=== PATIENT | male | born 1935 | race Caucasian/White ===

== ENCOUNTER 2017-04-07 23:59 | Emergency (ER) | payer MEDICARE, OTHER ==
[~2017-04-07] VITALS: Ht 170.2 cm; Wt 74.8 kg
[~2017-04-07 23:59] MED LIST: ACET650S13 PO; AMLO1CAP PO; AMLO1CAP31 PO; AMLO1CAP5 PO; ASP325TEC PO; ASP81TEC PO; ATOR40TA PO; CLPD75T PO; CODE-54 PO; CYAN100071 PO; CYAN500T44 PO; CYCL10TA9 PO; ENXP80I.8 SC; ENXP80I.8 SQ; MTP100TCR PO; NTR.4SL SL; POTA10CA43 PO; POTA99TA7 PO; SMV20T PO; TELM40T PO; TELM80TA3 PO; TICA90TA PO
--- OUTSIDE RECORDS SUMMARY | 2017-04-08 00:06 | XMS REPORT | Continuity of Care Document ---
Author Author [facility] Organization [facility] Address Unknown Phone Unavailable Allergies Active Description Code Type Severity Reaction Onset Reported/Identified Relationship to Patient Clinical Status Yes tramadol [id number] Drug Allergy Moderate HALLUCINATIONS 06/24/2012 Medications There is no data. Problems Date Dx Coded Attending Type Code Diagnosis Diagnosed By 04/04/2010 Ot 272.4 04/04/2010 Ot 401.9 04/04/2010 Ot 412 04/04/2010 Ot 414.01 04/04/2010 Ot 414.02 04/04/2010 Ot 414.2 04/04/2010 Ot 715.90 04/04/2010 Ot V13.01 04/04/2010 Ot V17.49 04/04/2010 Ot V45.81 04/04/2010 Ot V58.66 04/04/2010 Ot V58.69 11/09/2011 Ot 272.4 HYPERLIPIDEMIA NEC/NOS 11/09/2011 Ot 386.11 BENIGN PARXYSMAL VERTIGO 11/09/2011 Ot 401.9 HYPERTENSION NOS 11/09/2011 Ot 412 OLD MYOCARDIAL INFARCT 11/09/2011 Ot 414.00 CORON ATHEROSCLER NOS TYPE VESSEL, NATIV 11/09/2011 Ot 433.10 CAROTID ARTERY OCCLUSION W O CEREBRAL IN 11/09/2011 Ot 433.30 MULT BILTRAL ARTERY OCCLUSION WO CEREBRA 11/09/2011 Ot 435.9 TRANS CEREB ISCHEMIA NOS 11/09/2011 Ot 530.81 ESOPHAGEAL REFLUX 11/09/2011 Ot 722.52 LUMB/ LUMBOSAC DISC DEGEN 11/09/2011 Ot V45.81 AORTOCORONARY BYPASS 11/10/2011 Ot 724.00 SPINAL STENOSIS NOS 11/10/2011 Ot 724.2 LUMBAGO 11/10/2011 Ot V57.1 PHYSICAL THERAPY NEC 06/27/2012 MITESH RAGSDALE MD Ot 272.4 HYPERLIPIDEMIA NEC/NOS 06/27/2012 MITESH RAGSDALE MD Ot 292.81 DRUG-INDUCED DELIRIUM 06/27/2012 MITESH RAGSDALE MD Ot 401.9 HYPERTENSION NOS 06/27/2012 MITESH RAGSDALE MD Ot 414.01 CORONARY ATHEROSCLEROSIS OF [place] CORON 06/27/2012 MITESH RAGSDALE MD Ot 715.90 OSTEOARTHROS NOS-UNSPEC 06/27/2012 MITESH RAGSDALE MD Ot 724.02 SPINAL STENOSIS, LUMBAR REG, W/OUT NEURO 06/27/2012 MITESH RAGSDALE MD Ot 756.12 SPONDYLOLISTHESIS 06/27/2012 MITESH RAGSDALE MD Ot E935.2 ADV EFF OPIATES 06/27/2012 MITESH RAGSDALE MD Ot E938.4 ADV EFF GEN ANES NEC/NOS 06/27/2012 MITESH RAGSDALE MD Ot V03.82 PROPHYLACTIC VACC AGAINST STREPTOCOCCUS 06/27/2012 MITESH RAGSDALE MD Ot V12.54 PERSONAL HX OF TIA, CEREBRAL INFARCTION 06/27/2012 MITESH RAGSDALE MD Ot V15.82 HISTORY OF TOBACCO USE 06/27/2012 MITESH RAGSDALE MD Ot V45.81 AORTOCORONARY BYPASS 11/01/2012 MITESH RAGSDALE MD Ot 998.83 NON-HEALING SURG WOUND 10/28/2014 Ot 396.3 10/28/2014 Ot 414.01 10/28/2014 Ot 429.3 10/28/2014 Ot 433.10 10/28/2014 Ot 272.4 10/28/2014 Ot 414.00 10/28/2014 Ot 780.4 10/28/2014 Ot V45.81 10/28/2014 Ot V58.69 10/28/2014 Ot 433.10 10/28/2014 Ot 272.4 10/28/2014 Ot 414.01 10/28/2014 Ot V58.69 10/28/2014 Ot 429.3 10/28/2014 Ot 786.2 10/28/2014 Ot 414.00 10/28/2014 Ot V45.81 10/28/2014 Ot 722.10 10/28/2014 MITESH RAGSDALE MD Ot 724.02 10/28/2014 MITESH RAGSDALE MD Ot V72.63 10/28/2014 MITESH RAGSDALE MD Ot V74.8 10/28/2014 Ot 724.02 10/28/2014 CARLOS HERRERA APRN Ot 789.00 10/28/2014 MONAE HUGHES DO Ot 331.9 10/28/2014 MONAE HUGHES DO Ot 433.30 10/28/2014 ANGIE HUGHES DOLINE S Ot 780.93 10/28/2014 SAUL SUAREZ, MONAE S Ot V81.5 01/28/2015 Ot 396.3 01/28/2015 Ot 414.01 01/28/2015 Ot 429.3 01/28/2015 Ot 433.10 01/28/2015 Ot 272.4 01/28/2015 Ot 414.00 01/28/2015 Ot 780.4 01/28/2015 Ot V45.81 01/28/2015 Ot V58.69 01/28/2015 Ot 433.10 01/28/2015 Ot 272.4 01/28/2015 Ot 414.01 01/28/2015 Ot V58.69 01/28/2015 Ot 429.3 01/28/2015 Ot 786.2 01/28/2015 Ot 414.00 01/28/2015 Ot V45.81 01/28/2015 Ot 722.10 01/28/2015 MELYSSA MORTON, MITESH Dahl Ot 724.02 01/28/2015 MELYSSA MORTON, MITESH Dahl Ot V72.63 01/28/2015 MITESH RAGSDALE MD Ot V74.8 01/28/2015 Ot 724.02 01/28/2015 CARLOS HERRERA APRN Ot 789.00 01/28/2015 SAUL SUAREZ MONAE S Ot 331.9 01/28/2015 SAUL SUAREZ MONAE S Ot 433.30 01/28/2015 SAUL SUAREZ, MONAE S Ot 780.93 01/28/2015 SAUL SUAREZ, MONAE S Ot V81.5 10/05/2015 Ot 433.10 CAROTID ARTERY OCCLUSION W O CEREBRAL IN 10/05/2015 Ot 272.4 HYPERLIPIDEMIA NEC/NOS 10/05/2015 Ot 414.01 CORONARY ATHEROSCLEROSIS OF [place] CORON 10/05/2015 Ot V58.69 OTH MED,LT, CURRENT USE 10/05/2015 Ot 429.3 CARDIOMEGALY 10/05/2015 Ot 786.2 COUGH 10/05/2015 Ot 414.00 CORON ATHEROSCLER NOS TYPE VESSEL, NATIV 10/05/2015 Ot V45.81 AORTOCORONARY BYPASS 10/05/2015 Ot 722.10 LUMBAR DISC DISPLACEMENT 10/05/2015 MELYSSA MORTON, MITESH Dahl Ot 724.02 SPINAL STENOSIS, LUMBAR REG, W/OUT NEURO 10/05/2015 MELYSSA MORTON, MITESH Dahl Ot V72.63 PRE-PROCEDURAL LABORATORY EXAMINATION 10/05/2015 MITESH RAGSDALE MD Ot V74.8 SCREEN-BACTERIAL DIS NEC 10/05/2015 Ot 724.02 SPINAL STENOSIS, LUMBAR REG, W/OUT NEURO 10/05/2015 JAVIERCARLOS BASEBALL GLOVE STUFFER Ot 789.00 ABDOMINAL PAIN, UNSPECIFIED SITE 10/05/2015 ORENDER DO, MONAE S Ot 331.9 CEREB DEGENERATION NOS 10/05/2015 ORENDER DO, MONAE S Ot 433.30 MULT BILTRAL ARTERY OCCLUSION WO CEREBRA 10/05/2015 ORENDER DO, MONAE S Ot 780.93 MEMORY LOSS 10/05/2015 ORENDER DO, MONAE S Ot V81.5 SCREEN FOR NEPHROPATHY 10/07/2015 ENRIQUE BURRELL [employer] GLOVE STUFFER Ot M54.2 CERVICALGIA 10/07/2015 ENRIQUE BURRELL [employer] GLOVE STUFFER Ot M54.6 PAIN IN THORACIC SPINE 10/07/2015 ENRIQUE BURRELL B[employer]BALL GLOVE STUFFER Ot R42 DIZZINESS AND GIDDINESS 10/07/2015 ENRIQUE BURRELL B[employer]BALL GLOVE STUFFER Ot R51 HEADACHE 10/07/2015 ENRIQUE BURRELL BASEBALL GLOVE STUFFER Ot S19.9XXA UNSPECIFIED INJURY OF NECK, INITIAL ENCO 10/07/2015 ENRIQUE BURRELL BASEBALL GLOVE STUFFER Ot W19.XXXA UNSPECIFIED FALL, INITIAL ENCOUNTER 10/07/2015 ENRIQUE BURRELL BASEBALL GLOVE STUFFER Ot Y92.[address] [facility] [address] IN [facility] NON-INSTITUT (PRIVATE 10/07/2015 ENRIQUE BURRELL B[employer]BALL GLOVE STUFFER Ot Y99.8 OTHER EXTERNAL CAUSE STATUS 10/28/2015 Ot 433.10 CAROTID ARTERY OCCLUSION W O CEREBRAL IN 10/28/2015 Ot 272.4 HYPERLIPIDEMIA NEC/NOS 10/28/2015 Ot 414.01 CORONARY ATHEROSCLEROSIS OF [place] CORON 10/28/2015 Ot V58.69 OTH MED,LT, CURRENT USE 10/28/2015 Ot 429.3 CARDIOMEGALY 10/28/2015 Ot 786.2 COUGH 10/28/2015 Ot 414.00 CORON ATHEROSCLER NOS TYPE VESSEL, NATIV 10/28/2015 Ot V45.81 AORTOCORONARY BYPASS 10/28/2015 Ot 722.10 LUMBAR DISC DISPLACEMENT 10/28/2015 MITESH RAGSDALE MD Ot 724.02 SPINAL STENOSIS, LUMBAR REG, W/OUT NEURO 10/28/2015 MELYSSA MORTON, MITESH Dahl Ot V72.63 PRE-PROCEDURAL LABORATORY EXAMINATION 10/28/2015 MITESH RAGSDALE MD Ot V74.8 SCREEN-BACTERIAL DIS NEC 10/28/2015 Ot 724.02 SPINAL STENOSIS, LUMBAR REG, W/OUT NEURO 10/28/2015 CARLOS HERRERA BASEBALL GLOVE STUFFER Ot 789.00 ABDOMINAL PAIN, UNSPECIFIED SITE 10/28/2015 ORENDER DO, MONAE S Ot 331.9 CEREB DEGENERATION NOS 10/28/2015 ORENDER DO, MONAE S Ot 433.30 MULT BILTRAL ARTERY OCCLUSION WO CEREBRA 10/28/2015 RITANDER , MONAE S Ot 780.93 MEMORY LOSS 10/28/2015 RITANDLAWRENCE DIAZ DOQUELINE S Ot V81.5 SCREEN FOR NEPHROPATHY 10/29/2015 ENRIQUE BURRELL B[employer]BALL GLOVE STUFFER Ot M54.2 CERVICALGIA 10/29/2015 ENRIQUE BURRELL [employer] GLOVE STUFFER Ot M54.6 PAIN IN THORACIC SPINE 10/29/2015 ENRIQUE BURRELL [employer]ALL GLOVE STUFFER Ot R42 DIZZINESS AND GIDDINESS 10/29/2015 ENRIQUE BURRELL [employer] GLOVE STUFFER Ot R51 HEADACHE 10/29/2015 ENRIQUE BURRELL BASEBALL GLOVE STUFFER Ot S19.9XXA UNSPECIFIED INJURY OF NECK, INITIAL ENCO 10/29/2015 ENRIQUE BURRELL B[employer]BALL GLOVE STUFFER Ot W19.XXXA UNSPECIFIED FALL, INITIAL ENCOUNTER 10/29/2015 ENRIQUE BURRELL BASEBALL GLOVE STUFFER Ot Y92.[address] [facility] [address] IN [facility] NON-INSTITUT (PRIVATE 10/29/2015 ENRIQUE BURRELL B[employer]BALL GLOVE STUFFER Ot Y99.8 OTHER EXTERNAL CAUSE STATUS 11/08/2015 ENRIQUE BURRELL B[employer]BALL GLOVE STUFFER Ot M54.2 CERVICALGIA 11/08/2015 ENRIQUE BURRELL B[employer]BALL GLOVE STUFFER Ot M54.6 PAIN IN THORACIC SPINE 11/08/2015 ENRIQUE BURRELL B[employer]BALL GLOVE STUFFER Ot R42 DIZZINESS AND GIDDINESS 11/08/2015 ENRIQUE BURRELL BASEBALL GLOVE STUFFER Ot R51 HEADACHE 11/08/2015 NERIQUE BURRELL BASEBALL GLOVE STUFFER Ot S19.9XXA UNSPECIFIED INJURY OF NECK, INITIAL ENCO 11/08/2015 ENRIQUE BURRELL BASEBALL GLOVE STUFFER Ot W19.XXXA UNSPECIFIED FALL, INITIAL ENCOUNTER 11/08/2015 ENRIQUE BURRELL BASEBALL GLOVE STUFFER Ot Y92.[address] IN [facility] NON-INSTITUT (PRIVATE 11/08/2015 ENRIQUE BURRELL B[employer]BALL GLOVE STUFFER Ot Y99.8 OTHER EXTERNAL CAUSE STATUS 02/09/2016 Ot 429.3 CARDIOMEGALY 02/09/2016 Ot 786.2 COUGH 02/09/2016 Ot 414.00 CORON ATHEROSCLER NOS TYPE VESSEL, NATIV 02/09/2016 Ot V45.81 AORTOCORONARY BYPASS 02/09/2016 Ot 722.10 LUMBAR DISC DISPLACEMENT 02/09/2016 MELYSSA MORTON, MITESH Dahl Ot 724.02 SPINAL STENOSIS, LUMBAR REG, W/OUT NEURO 02/09/2016 MITESH RAGSDALE MD Ot V72.63 PRE-PROCEDURAL LABORATORY EXAMINATION 02/09/2016 MITESH RAGSDALE MD Ot V74.8 SCREEN-BACTERIAL DIS NEC 02/09/2016 Ot 724.02 SPINAL STENOSIS, LUMBAR REG, W/OUT NEURO 02/09/2016 CARLOS HERRERA BASEBALL GLOVE STUFFER Ot 789.00 ABDOMINAL PAIN, UNSPECIFIED SITE 02/09/2016 RITANDER DO, MONAE S Ot 331.9 CEREB DEGENERATION NOS 02/09/2016 RITANDER DO, MONAE S Ot 433.30 MULT BILTRAL ARTERY OCCLUSION WO CEREBRA 02/09/2016 RITANDER DO, MONAE S Ot 780.93 MEMORY LOSS 02/09/2016 RITANDER DO, MONAE S Ot V81.5 SCREEN FOR NEPHROPATHY 11/07/2016 Ot 414.00 CORON ATHEROSCLER NOS TYPE VESSEL, NATIV 11/07/2016 Ot V45.81 AORTOCORONARY BYPASS 11/07/2016 Ot 722.10 LUMBAR DISC DISPLACEMENT 11/07/2016 MITESH RAGSDALE MD Ot 724.02 SPINAL STENOSIS, LUMBAR REG, W/OUT NEURO 11/07/2016 MITESH RAGSDALE MD Ot V72.63 PRE-PROCEDURAL LABORATORY EXAMINATION 11/07/2016 MITESH RAGSDALE MD Ot V74.8 SCREEN-BACTERIAL DIS NEC 11/07/2016 Ot 724.02 SPINAL STENOSIS, LUMBAR REG, W/OUT NEURO 11/07/2016 CARLOS HERRERA BASEBALL GLOVE STUFFER Ot 789.00 ABDOMINAL PAIN, UNSPECIFIED SITE 11/07/2016 SAUL SUAREZ, MONAE S Ot 331.9 CEREB DEGENERATION NOS 11/07/2016 MONAE HUGHES DO Ot 433.30 MULT BILTRAL ARTERY OCCLUSION WO CEREBRA 11/07/2016 MONAE HUGHES DO Ot 780.93 MEMORY LOSS 11/07/2016 MONAE HUGHES DO Ot V81.5 SCREEN FOR NEPHROPATHY 11/07/2016 ENRIQUE BURRELL B[employer]BALL GLOVE STUFFER Ot M54.2 CERVICALGIA 11/07/2016 ENRIQUE BURRELL B[employer] GLOVE STUFFER Ot M54.6 PAIN IN THORACIC SPINE 11/07/2016 ENRIQUE BURRELL B[employer]BALL GLOVE STUFFER Ot R42 DIZZINESS AND GIDDINESS 11/07/2016 ENRIQUE BURRELL B[employer]ALL GLOVE STUFFER Ot R51 HEADACHE 11/07/2016 ENRIQUE BURRELL BASEBALL GLOVE STUFFER Ot S19.9XXA UNSPECIFIED INJURY OF NECK, INITIAL ENCO 11/07/2016 ENRIQUE BURRELL BASEBALL GLOVE STUFFER Ot W19.XXXA UNSPECIFIED FALL, INITIAL ENCOUNTER 11/07/2016 ENRIQUE BURRELL BASEBALL GLOVE STUFFER Ot Y92.[address] IN [facility] NON-INSTITUT (PRIVATE 11/07/2016 ENRIQUE BURRELL BASEBALL GLOVE STUFFER Ot Y99.8 OTHER EXTERNAL CAUSE STATUS 11/08/2016 ENRIQUE BURRELL BASEBALL GLOVE STUFFER Ot M54.2 CERVICALGIA 11/08/2016 ENRIQUE BURRELL BASEBALL GLOVE STUFFER Ot M54.6 PAIN IN THORACIC SPINE 11/08/2016 ENRIQUE BURRELL BASEBALL GLOVE STUFFER Ot R42 DIZZINESS AND GIDDINESS 11/08/2016 ENRIQUE BURRELL BASEBALL GLOVE STUFFER Ot R51 HEADACHE 11/08/2016 ENRIQUE BURRELL BASEBALL GLOVE STUFFER Ot S19.9XXA UNSPECIFIED INJURY OF NECK, INITIAL ENCO 11/08/2016 ENRIQUE BURRELL BASEBALL GLOVE STUFFER Ot W19.XXXA UNSPECIFIED FALL, INITIAL ENCOUNTER 11/08/2016 ENRIQUE BURRELL BASEBALL GLOVE STUFFER Ot Y92.[address] IN [facility] NON-INSTITUT (PRIVATE 11/08/2016 ENRIQUE BURRELL BASEBALL GLOVE STUFFER Ot Y99.8 OTHER EXTERNAL CAUSE STATUS 02/13/2017 ENRIQUE BURRELL BASEBALL GLOVE STUFFER Ot M54.2 CERVICALGIA 02/13/2017 ENRIQUE BURRELL B[employer]BALL GLOVE STUFFER Ot M54.6 PAIN IN THORACIC SPINE 02/13/2017 ENRIQUE BURRELL BASEBALL GLOVE STUFFER Ot R42 DIZZINESS AND GIDDINESS 02/13/2017 ENRIQUE BURRELL BASEBALL GLOVE STUFFER Ot R51 HEADACHE 02/13/2017 ENRIQUE BURRELL BASEBALL GLOVE STUFFER Ot S19.9XXA UNSPECIFIED INJURY OF NECK, INITIAL ENCO 02/13/2017 ENRIQUE BURRELL BASEBALL GLOVE STUFFER Ot W19.XXXA UNSPECIFIED FALL, INITIAL ENCOUNTER 02/13/2017 ENRIQUE BURRELL SOHAN Ot Y92.[address] [facility] 02/13/2017 ENRIQUE BURRELL BASEBALL GLOVE STUFFER Ot Y99.8 OTHER EXTERNAL CAUSE STATUS Procedures Code Description Performed By Performed On 03. SPINAL CANAL EXPLOR NEC 06/24/2012 81.07 LUMBAR LUMBOSACRAL FUSION OF POSTERIOR 06/24/2012 81.62 FUSION/REFUS OF 2-3 VERTEBRAE 06/24/2012 84.51 INSERTION OF INTERBODY SPINAL FUSION DEV 06/24/2012 Results There is no data. Encounters ACCT No. Visit Date/Time Discharge Status Pt. Type Provider Facility Loc./Unit Complaint [id number] 10/06/2015 11:17:00 10/06/2015 23:59:59 CLS Outpatient ENRIQUE BURRELL SOHAN [facility] RAD FALL,HEADACHE, DIZZINESS [id number] 11/08/2012 11:06:00 11/08/2012 23:59:59 CLS Outpatient MONAE HUGHES DO [facility] RAD MEMORY LOSS,TIA [id number] 10/25/2012 12:50:00 11/01/2012 08:50:00 DIS Outpatient MITESH RAGSDALE MD [facility] WOUNDCARE NON HEALING POST OP WOUND [id number] 07/04/2012 17:09:00 07/04/2012 23:59:59 CLS Outpatient CARLOS HERRERA APRN [facility] RAD ABD PAIN [id number] 06/24/2012 11:57:00 06/27/2012 10:50:00 DIS Inpatient MITESH RAGSDALE MD [facility] SURGICAL CERVICAL STENOSIS [id number] 06/17/2012 12:45:00 06/17/2012 23:59:59 CLS Outpatient MITESH RAGSDALE MD [facility] PREOP CERVICAL STENOSIS [id number] 06/11/2012 07:45:00 Document Registration [id number] 11/10/2011 13:19:00 Document Registration [id number] 11/08/2011 21:40:00 Document Registration [id number] 09/22/2011 13:31:00 Document Registration [id number] 08/18/2011 11:33:00 Document Registration [id number] 02/06/2011 14:30:00 Document Registration [id number] 06/21/2010 09:54:00 Document Registration [id number] 05/24/2010 09:19:00 Document Registration [id number] 04/03/2010 11:55:00 Document Registration [id number] 11/08/2009 06:57:00 Document Registration [id number] 10/18/2009 09:19:00 Document Registration [id number] 11/18/2013 11:22:01 11/18/2013 23:59:59 [facility] Bakari Garcia
--- NOTE | 2017-04-08 00:18 | ED Fall/Injury ---
General Chief Complaint: Trauma-Non Activation Stated Complaint: FALL Source: spouse Exam Limitations: other (PT WITH DEMENTIA AND CANNOT GIVE ANY RELEVANT INFORMATION--DOES NOT KNOW WHY HE IS HERE AND DID NOT KNOW THAT HE FELL) History of Present Illness Date Seen by Provider: Apr 08, 2017 Time Seen by Provider: 00:03 Initial Comments PT ARRIVES VIA EMS FROM HOME PT GOT UP TO GO TO THE BATHROOM AND WAS NOT USING HIS WALKER AND FELL-- CAUGHT HIM AND HELPED EASE HIM ON DOWN, BUT DID LAND ON HIS ELBOWS SHE WAS UNABLE TO ASSIST HIM BACK UP, SO CALLED EMS. DID NOT HIT HEAD AND NO LOSS OF CONSCIOUSNESS PT STATES HE DOES NOT HURT ANYWHERE MENTATION IS NORMAL FOR PT, PER PCP: DR. HUGHES Allergies and Home Medications Allergies Coded Allergies: tramadol (Unverified Adverse Reaction, Intermediate, HALLUCINATIONS, ) Home Medications Amlodipine Besylate/Benazepril 1 Each Capsule, 1 EACH PO DAILY, (Reported) Aspirin 81 Mg Tabec, 81 MG PO DAILY, (Reported) Atorvastatin Calcium 40 Mg Tablet, 40 MG PO DAILY, (Reported) Cyanocobalamin (Vitamin B-12) 1,000 Mcg Tablet.er, 1,000 MCG PO DAILY, (Reported ) Metoprolol Succinate 100 Mg Tab, 100 MG PO DAILY, (Reported) Potassium Chloride 10 Meq Capsule.sa, 10 MEQ PO TID, (Reported) Telmisartan 40 Mg Tab, 40 MG PO DAILY, (Reported) Constitutional: see HPI Past Skraqmi-Qzabqd-Ciflxl Hx Patient Social History Alcohol Use: Denies Use Recreational Drug Use: No Smoking Status: Never a Smoker Immunizations Up To Date Tetanus Booster (TDap): Less than 5yrs PED Vaccines UTD: No Date of Pneumonia Vaccine: June 27, 2012 Date of Influenza Vaccine: Oct 30, 2011 Surgeries History of Surgeries: Yes (BACK SURGERY) Surgeries: Cardiac, CABG, Orthopedic Respiratory History of Respiratory Disorde: No Cardiovascular History of Cardiac Disorders: Yes Cardiac Disorders: Coronary Artery Disease, Hypertension Neurological History of Neurological Disord: Yes Neurological Disorders: Dementia Reproductive System Hx Reproductive Disorders: No Sexually Transmitted Disease: No HIV/AIDS: No Genitourinary History of Genitourinary Disor: No Gastrointestinal History of Gastrointestinal Di: No Musculoskeletal History of Musculoskeletal Dis: Yes Musculoskeletal Disorders: Chronic Back Pain Endocrine History of Endocrine Disorders: No HEENT History of HEENT Disorders: Yes Loss of Vision: Bilateral Hearing Impairment: Hard of Hearing Cancer History of Cancer: No Psychosocial History of Psychiatric Problem: No Integumentary History of Skin or Integumenta: No Blood Transfusions History of Blood Disorders: No Physical Exam Vital Signs Vital Signs - First Documented 04/07/17 23:59 Temp 98.0 Pulse 74 Resp 20 B/P (MAP) 169/83 (111) Pulse Ox 100 O2 Delivery Room Air Capillary Refill : General Appearance: WD/WN, no apparent distress HEENT: PERRL/EOMI, normal ENT inspection Neck: non-tender, full range of motion, supple, normal inspection Cardiovascular: normal peripheral pulses, regular rate, rhythm, no murmur Respiratory: chest non-tender, normal breath sounds, no respiratory distress, no accessory muscle use Peripheral Pulses: 1+ Dorsalis Pedis (R), 1+ Left Dors-Pedis (L), 1+ Radial Pulses (R), 1+ Radial Pulses (L) Gastrointestinal: normal bowel sounds, non tender, soft Back: other (MILD DIFFUSE TENDERNESS. 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, no motor/sensory deficits, alert, normal mood/affect, other (DISORIENTED TO PLACE, TIME, SITUATION) Skin: normal color, warm/dry, other (NO EXTERNAL EVIDENCE OF TRAUMA ANYWHERE) Tanvi Coma Score Best Eye Response: (4) Open Spontaneously Best Verbal Response: (4) Confused Conversation Best Motor Response: (6) Obeys Commands [place] Total: 14 Progress/Results/Core Measures Results/Orders My Orders Orders - KAYLA PERKINS DO Pelvis (04/08/17 00:10) Lumbar Spine - 2-3 Views (04/08/17 00:10) Elbow, Bilateral, 3 View (04/08/17 00:10) T-Spine 3v-Ap, Lat, Swimmers (04/08/17 00:10) Vital Signs/I&O Vital Sign - Last 12Hours 04/07/17 23:59 Temp 98.0 Pulse 74 Resp 20 B/P (MAP) 169/83 (111) Pulse Ox 100 O2 Delivery Room Air Diagnostic Imaging Comments XRAYS: ALL PENDING RADIOLOGIST REVIEW PELVIS-NO ACUTE PROCESS BILATERAL ELBOWS--NO ACUTE PROCESS THORACIC AND LUMBAR SPINE--NO ACUTE PROCESS, POST OP AND DEGENERATIVE CHANGES Reviewed: Reviewed by Me Departure Impression Impression: Primary Impression: Status post fall Additional Impressions: BILATERAL ELBOW CONTUSIONS Back strain Dementia Unsteady gait Disposition: 01 HOME, SELF-CARE Condition: Stable Departure-Patient Inst. Referrals: MONAE HUGHES DO (PCP/Family) Primary Care Physician Patient Instructions: Contusion (DC), Lumbar Muscle Strain (DC), Muscle and Bone Pain (DC), Preventing Falls in the Older Adult, Upper Back Pain (DC) Add. Discharge Instructions: TYLENOL NEEDED FOR PAIN USE WALKER AT ALL TIMES TAKE YOUR REGULAR MEDICATIONS PRESCRIBED FOLLOW UP WITH DR. HUGHES IN 1 WEEK IF NO BETTER All discharge instructions reviewed with patient and/or family. Voiced understanding. KAYLA PERKINS DO Apr 08, 2017 00:17
[2017-04-08 01:20] VITALS: BP 154/79
--- NOTE | 2017-04-08 08:20 | Diagnostic Imaging Report ---
INDICATION: Fall with bilateral elbow pain. DISCUSSION: Three views of bilateral elbows were obtained. No fracture or effusion. No dislocation. Mild degenerative disease is present bilaterally. Postoperative changes are noted within the left forearm. Soft tissues are otherwise unremarkable. IMPRESSION: 1. Negative bilateral elbows. Dictated by: Dictated on workstation # [id number]
--- NOTE | 2017-04-08 08:21 | Diagnostic Imaging Report ---
INDICATION: Fall with low back pain. DISCUSSION: Three views lumbosacral spine were obtained. Mild rightward curvature of the spine is stable. Postoperative changes at the L4-L5 level are stable. Moderate degenerative disc disease is noted diffusely. No fracture or subluxation. Atherosclerotic plaque is present throughout the aorta. IMPRESSION: 1. Stable degenerative disease of the lumbar spine. No acute fracture identified. Dictated by: Dictated on workstation # [id number]
--- NOTE | 2017-04-08 08:26 | Diagnostic Imaging Report ---
INDICATION: Fall with mid back pain. DISCUSSION: Four views of the thoracic spine were obtained, comparison 10/06/2015. Median sternotomy is stable. Degenerative disease is again noted diffusely throughout the thoracic spine. No acute fracture or subluxation is identified. Alignment remains anatomic. IMPRESSION: 1. Stable degenerative disease within the thoracic spine. Dictated by: Dictated on workstation # [id number]
--- NOTE | 2017-04-08 08:29 | Diagnostic Imaging Report ---
INDICATION: Injury to the pelvis from a fall FINDINGS: AP view pelvis shows no fracture or dislocation. IMPRESSION: Negative pelvis Dictated by: Dictated on workstation # [id number]
[2017-04-09] MEDS ORDERED: AMLO1CAP8 PO (09:58)
[2017-04-09] MEDS ORDERED: DONE10TA41 PO (09:58)
[2017-04-09] MEDS ORDERED: CLOP75TA28 PO (09:58)
[2017-04-09] MEDS ORDERED: NITR0.4T39 SL (10:02)
[2017-04-09] MEDS ORDERED: ASPI-983 PO (10:02)
== END 2017-04-08 01:20 | disposition home or self-care (01) ==
LOC: EDUNIT# 04-08 → ER 04-08 00:02
DX: S50.01XA Contusion of right elbow, initial encounter (principal); S50.02XA Contusion of left elbow, initial encounter; S39.012A Strain of muscle, fascia and tendon of lower back, initial encounter; F03.90 Unspecified dementia, unspecified severity, without behavioral disturbance, psychotic disturbance, mood disturbance, and anxiety; I25.10 Atherosclerotic heart disease of native coronary artery without angina pectoris; I10 Essential (primary) hypertension; R26.9 Unspecified abnormalities of gait and mobility; Z95.1 Presence of aortocoronary bypass graft; Z79.82 Long term (current) use of aspirin; Z88.1 Allergy status to other antibiotic agents; W01.198A Fall on same level from slipping, tripping and stumbling with subsequent striking against other object, initial encounter
CPT/HCPCS: 72072; 72100; 72170; 99283

== ENCOUNTER 2017-06-19 10:12 | Emergency (ER) | payer MEDICARE, OTHER ==
[~2017-06-19] VITALS: Ht 170.2 cm; Wt 63.6 kg
[~2017-06-19 10:12] MED LIST changes: +ACET325T49 PO; +AMLO10TA2 PO; +AMLO1CAP8 PO; +ASPI-983 PO; +BETH25TA PO; +BETH50TA PO; +CIPR-226 PO; +CLOP75TA28 PO; +DIVA250T4 PO; +DONE10TA41 PO; +LOSA50TA36 PO; +MELA3TAB PO; +NITR0.4T39 SL; +POTA8CAP9 PO
[2017-06-19 10:42] LABS: BASOPHILS % (AUTO) 1 % (0-10); EOSINOPHILS # (AUTO) 0.1 10^3/uL (0.0-0.3); EOSINOPHILS % (AUTO) 2 % (0-10); HEMATOCRIT 40 % (40-54); HEMOGLOBIN 13.4 G/DL (13.3-17.7); LYMPHOCYTES # (AUTO) 1.1 X 10^3 (1.0-4.0); LYMPHOCYTES % (AUTO) 22 % (12-44); MEAN CORPUSCULAR HEMOGLOBIN 31 PG (25-34); MEAN CORPUSCULAR HGB CONC 34 G/DL (32-36); MEAN CORPUSCULAR VOLUME 91 FL (80-99); MEAN PLATELET VOLUME 11.3 FL (7.4-10.4); MONOCYTES # (AUTO) 0.5 X 10^3 (0.0-1.0); MONOCYTES % (AUTO) 10 % (0-12); NEUTROPHILS # (AUTO) 3.3 X 10^3 (1.8-7.8); NEUTROPHILS % (AUTO) 65 % (42-75); PLATELET COUNT 167 10^3/uL (130-400); RED CELL DISTRIBUTION WIDTH 13.9 % (10.0-14.5)
[2017-06-19] MEDS ORDERED: TETANUS,DIPTH,PERTUSS P/F (BOOSTRIX) 0.5 ML VIAL IM ONE (10:45)
--- NOTE | 2017-06-19 11:09 | ED Fall/Injury ---
General Chief Complaint: Trauma-Non Activation Stated Complaint: FALL Source: patient, EMS, [facility] records Exam Limitations: other (dementia) History of Present Illness Date Seen by Provider: June 19, 2017 Time Seen by Provider: 10:00 Initial Comments This 81-year-old gentleman presents to the emergency room via EMS after [facility] a [facility] the [facility]. He was found in the hallway leaning against a door. Patient indicates "everything went black". It is unclear if he had syncope or just does not have recollection of the event. He denies any pain at this time. His neck is nontender. He arrives in c-collar as a precaution. He was ambulatory at the scene per EMS. Patient does have significant dementia at baseline. He is on Plavix and aspirin. He has a minor skin tear on the left elbow without pain. Allergies and Home Medications Allergies Coded Allergies: tramadol (Unverified Adverse Reaction, Intermediate, HALLUCINATIONS, ) Home Medications Acetaminophen 325 Mg Tablet, 650 MG PO Q6H PRN for PAIN-MILD OR FEVER Prescribed by: MONAE PETERSEN on 04/13/171126 Amlodipine Besylate 10 Mg Tablet, 10 MG PO DAILY Prescribed by: MONAE PETERSEN on 04/13/171127 Aspirin 81 Mg Tablet.dr, 81 MG PO DAILY, (Reported) Bethanechol Chloride 50 Mg Tablet, 50 MG PO QID Prescribed by: MONAE PETERSEN on 04/16/17 130 Ciprofloxacin HCl 250 Mg Tablet, 250 MG PO DAILY Prescribed by: MONAE PETERSEN on 04/16/17 130 Clopidogrel Bisulfate 75 Mg Tablet, 75 MG PO DAILY, (Reported) Divalproex Sodium 250 Mg Tablet.dr, 250 MG PO HS Prescribed by: MONAE PETERSEN on 04/13/171126 Losartan Potassium 50 Mg Tablet, 50 MG PO BID Prescribed by: MONAE PETERSEN on 04/13/171126 Melatonin 3 Mg Tablet, 6 MG PO HS Prescribed by: MONAE PETERSEN on 04/13/171126 Nitroglycerin 0.4 Mg Tab.subl, 0.4 MG SL UD PRN for CHEST PAIN, (Reported) Potassium Chloride 8 Meq Capsule.er, 8 MEQ PO BID Prescribed by: MONAE PETERSEN on 2/23/18 1127 Patient Home Medication List Home Medication List Reviewed: Yes Review of Systems Constitutional: no symptoms reported Eyes: No Symptoms Reported Ears, Nose, Mouth, Throat: no symptoms reported Respiratory: no symptoms reported Cardiovascular: no symptoms reported Gastrointestinal: no symptoms reported Genitourinary: no symptoms reported Musculoskeletal: no symptoms reported Skin: see HPI Psychiatric/Neurological: See HPI Past Zmviuiu-Zpjigl-Jayjmi Hx Patient Social History 2nd Hand Smoke Exposure: No Recent Hopitalizations: No Immunizations Up To Date Tetanus Booster (TDap): Less than 5yrs PED Vaccines UTD: No Date of Pneumonia Vaccine: Nov 19, 2016 Date of Influenza Vaccine: Nov 19, 2016 Seasonal Allergies Seasonal Allergies: No Past Medical History Surgeries: Yes (BACK SURGERY) Cardiac, CABG, Orthopedic Respiratory: No Currently Using CPAP: No Currently Using BIPAP: No Cardiac: Yes Coronary Artery Disease, Hypertension Neurological: Yes (Alzheimers) Dementia Reproductive Disorders: No Sexually Transmitted Disease: No HIV/AIDS: No Genitourinary: No Gastrointestinal: No Musculoskeletal: Yes Chronic Back Pain Endocrine: No HEENT: Yes Loss of Vision: Bilateral Hearing Impairment: Hard of Hearing Cancer: No Psychosocial: No Integumentary: No Blood Disorders: No Physical Exam Vital Signs Vital Signs - First Documented 06/19/17 13:38 Pulse Ox 100 Capillary Refill : General Appearance: WD/WN, no apparent distress HEENT: PERRL/EOMI, normal ENT inspection Neck: non-tender, normal inspection Cardiovascular: regular rate, rhythm, no edema, no murmur Respiratory: lungs clear, normal breath sounds, no respiratory distress, no accessory muscle use Gastrointestinal: normal bowel sounds, non tender, soft Extremities: no pedal edema, other (skin tear on left elbow) Neurologic/Psychiatric: 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-XII nml as tested, no motor/sensory deficits, alert, normal mood/affect, other (dementia baseline unchanged) Skin: normal color, warm/dry [place] Coma Score Best Eye Response: (4) Open Spontaneously Best Verbal Response: (4) Confused Conversation Best Motor Response: (6) Obeys Commands Tanvi Total: 14 Progress/Results/Core Measures Lab Results Laboratory Tests Test 06/19/17 10:32 06/19/17 11:41 Range/Units White Blood Count 5.0 4.3-11.0 10^3/uL Red Blood Count 4.40 4.35-5.85 10^6/uL Hemoglobin 13.4 13.3-17.7 G/DL Hematocrit 40 40-54 % Mean Corpuscular Volume 91 80-99 FL Mean Corpuscular Hemoglobin 31 25-34 PG Mean Corpuscular Hemoglobin Concent 34 32-36 G/DL Red Cell Distribution Width 13.9 10.0-14.5 % Platelet Count 167 130-400 10^3/uL Mean Platelet Volume 11.3 H 7.4-10.4 FL Neutrophils (%) (Auto) 65 42-75 % Lymphocytes (%) (Auto) 22 12-44 % Monocytes (%) (Auto) 10 0-12 % Eosinophils (%) (Auto) 2 0-10 % Basophils (%) (Auto) 1 0-10 % Neutrophils # (Auto) 3.3 1.8-7.8 X 10^3 Lymphocytes # (Auto) 1.1 1.0-4.0 X 10^3 Monocytes # (Auto) 0.5 0.0-1.0 X 10^3 Eosinophils # (Auto) 0.1 0.0-0.3 10^3/uL Basophils # (Auto) 0.0 0.0-0.1 10^3/uL Sodium Level 142 135-145 MMOL/L Potassium Level 3.7 3.6-5.0 MMOL/L Chloride Level 106 98-107 MMOL/L Carbon Dioxide Level 25 21-32 MMOL/L Anion Gap 11 5-14 MMOL/L Blood Urea Nitrogen 21 H 7-18 MG/DL Creatinine 1.31 H 0.60-1.30 MG/DL Estimat Glomerular Filtration Rate 52 BUN/Creatinine Ratio 16 Glucose Level 70 70-105 MG/DL Calcium Level 8.8 8.5-10.1 MG/DL Troponin I < 0.30 <0.30 NG/ML Valproic Acid (Depakene) Level 14.9 L 50.0-100.0 UG/ML Urine Color YELLOW Urine Clarity VERY CLOUDY H Urine pH 7 5-9 Urine Specific [place] 1.010 L 1.016-1.022 Urine Protein NEGATIVE NEGATIVE Urine Glucose (UA) NEGATIVE NEGATIVE Urine Ketones NEGATIVE NEGATIVE Urine Nitrite NEGATIVE NEGATIVE Urine Bilirubin NEGATIVE NEGATIVE Urine Urobilinogen NORMAL NORMAL MG/DL Urine Leukocyte Esterase 3+ H NEGATIVE Urine RBC (Auto) NEGATIVE NEGATIVE Urine RBC NONE /HPF Urine WBC 5-10 H /HPF Urine Squamous Epithelial Cells RARE /HPF Urine Crystals PRESENT H /LPF Urine Calcium Oxalate Crystals RARE H /LPF Urine Amorphous Sediment MOD BELEM PHOSPHATE H /LPF Urine Bacteria TRACE /HPF Urine Casts NONE /LPF Urine Mucus NEGATIVE /LPF Urine Culture Indicated YES My Orders Orders - DIANN MA MD Basic Metabolic Panel (06/19/17 10:18) Cbc With Automated Diff (06/19/17 10:18) Ua Culture If Indicated (06/19/17 10:18) Saline Lock/Iv-Start (06/19/17 10:18) Ct Head/Cervical Spine Wo (06/19/17 10:18) Dipht,Pertuss(Acell),Tet Adult (Boostrix (06/19/17 10:45) Ekg Tracing (06/19/17 10:43) Monitor-Rhythm Ecg Trace Only (06/19/17 10:43) Troponin I (06/19/17 10:43) Valproic Acid (06/19/17 11:14) Urine Culture (06/19/17 11:41) Saline Lock/Iv-Start (06/19/17 12:07) Ns Iv 1000 Ml (Sodium Chloride 0.9%) (06/19/17 12:07) General/Regular (06/19/17 Lunch) Medications Given in ED Vital Signs/I&O 06/19/17 06/19/17 06/19/17 10:13 10:13 13:38 Temp 97.2 97.2 97.9 Pulse 60 60 61 Resp 14 14 14 B/P (MAP) 132/68 (89) 132/68 (89) 144/64 Pulse Ox 100 O2 Delivery Room Air Room Air Room Air Progress Note : Progress Note CT of the head and C-spine was performed. No acute injuries were identified. C -collar was removed after review of CT report. Patient had a mild bump in creatinine, and a liter of IV normal saline was ordered. Patient had subtle suggestion of urinary tract infection on UA. He has an indwelling catheter and is on Cipro presently. Culture is pending which should help guide any further therapy. Heart rate has been as low as 47 on the monitor. It remains sinus. Follow-up with his hair or beauty salon assistant as recommended. There are no medications on his MAR that need to be adjusted for heart rate at this time. A liter of IV fluid was infused. Initial ECG Impression Date: June 19, 2017 Initial ECG Impression Time: 10:51 Initial ECG Rate: 57 Initial ECG Rhythm: Normal Sinus Initial ECG Intervals: Normal Initial ECG Impression: Normal Comment Normal sinus rhythm with no ST elevation or depression. No abnormal intervals or axis deviation. Diagonstic Imaging: CT Plain Films/CT/US/NM/MRI: c-spine, head Comments CT head and C-spine viewed by me and report reviewed. See report below: NAME: [facility] REC#: [id number] PT STATUS: REG ER : 1935 PHYSICIAN: DIANN MA MD ADMIT DATE: 06/19/17/ER Draft Date of Exam:06/19/17 CT HEAD/CERVICAL SPINE WO PROCEDURE: CT head and CT cervical spine without contrast. TECHNIQUE: Multiple contiguous axial images were obtained through the brain and cervical spine without the use of intravenous contrast. Sagittal and coronal reformations through the cervical spine were then performed. INDICATION: Fall, head CT compared 04/08/2017, cervical imaging compared 10/06/2015 CT head: There are no acute extra-axial fluid collections and there was no evidence for intracranial hemorrhage. There is no calvarial fracture deformity. Chronic atrophy and white matter small vessel sequelae are stable. 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 No sulcal effacement and no findings of focal or generalized cortical edema. No evidence for an elevation of the intracranial pressures. No convincing change from the previous exam. No hemo-sinus. The orbits unremarkable. CT cervical spine: Reconstruction views revealed normal body heights and stable alignment bridging ventral osteophytes likely a diffuse idiopathic skeletal hyperostosis unchanged. No substantial degree of posterior longitudinal ligament or posterior cortical bony hypertrophy. Facet relationships aside from degenerative change otherwise unremarkable. No fracture or paravertebral hemorrhage. The alignment stable, no high-grade canal stenosis. No change. IMPRESSION: CT head: Extensive multifocal old ischemic sequelae stable from prior, no hemorrhage, edema or acute pathology. No fracture deformity CT cervical spine: Stable from priors extensive degenerative changes aligned anatomically with no fracture or acute bony abnormality Dictated on workstation # [id number] Dict: 06/19/17 1123 Trans: 06/19/17 1136 CV [id number] Interpreted by: ROYAL BRITO Departure Impression Primary Impression: Fall on same level Qualified Codes: W18.30XA - Fall on same level, unspecified, initial encounter Additional Impressions: Renal insufficiency Indwelling Perkins catheter present Urinary tract infection Qualified Codes: N39.0 - Urinary tract infection, site not specified Dementia Qualified Codes: F03.90 - Unspecified dementia without behavioral disturbance Sinus bradycardia Skin tear of elbow without complication Qualified Codes: S51.012A - Laceration without foreign body of left elbow, initial encounter Disposition: HOME, SELF-CARE Condition: Improved Departure-Patient Inst. Decision time for Depature: 12:42 Referrals: MONAE PETERSEN DO (PCP/Family) Primary Care Physician Patient Instructions: Urinary Tract Infection, Adult (DC) Add. Discharge Instructions: Encourage plenty of clear liquids. Continue with medications as previously prescribed. Follow-up with your hair or beauty salon assistant regarding low heart rate. Follow- up with Dr. Petersen on or Sunday to review urine culture results. In the meantime continue with Cipro. Return to the ER if symptoms worsen, especially if you develop new symptoms such as fever. Observe fall risk precautions. All discharge instructions reviewed with patient and/or family. Voiced understanding. Copy Copies To 1: MONAE PETERSEN JOSHUA T MD June 19, 2017 11:08
[2017-06-19 11:10] LABS: CALCIUM 8.8 MG/DL (8.5-10.1); CREATININE SERUM 1.31 MG/DL (0.60-1.30); POTASSIUM 3.7 MMOL/L (3.6-5.0)
--- NOTE | 2017-06-19 11:37 | Diagnostic Imaging Report ---
PROCEDURE: CT head and CT cervical spine without contrast. TECHNIQUE: Multiple contiguous axial images were obtained through the brain and cervical spine without the use of intravenous contrast. Sagittal and coronal reformations through the cervical spine were then performed. INDICATION: Fall, head CT compared 04/08/2017, cervical imaging compared 10/06/2015 CT head: There are no acute extra-axial fluid collections and there was no evidence for intracranial hemorrhage. There is no calvarial fracture deformity. Chronic atrophy and white matter small vessel sequelae are stable. 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 No sulcal effacement and no findings of focal or generalized cortical edema. No evidence for an elevation of the intracranial pressures. No convincing change from the previous exam. No hemo-sinus. The orbits unremarkable. CT cervical spine: Reconstruction views revealed normal body heights and stable alignment bridging ventral osteophytes likely a diffuse idiopathic skeletal hyperostosis unchanged. No substantial degree of posterior longitudinal ligament or posterior cortical bony hypertrophy. Facet relationships aside from degenerative change otherwise unremarkable. No fracture or paravertebral hemorrhage. The alignment stable, no high-grade canal stenosis. No change. IMPRESSION: CT head: Extensive multifocal old ischemic sequelae stable from prior, no hemorrhage, edema or acute pathology. No fracture deformity CT cervical spine: Stable from priors extensive degenerative changes aligned anatomically with no fracture or acute bony abnormality . Dictated by: Dictated on workstation # [id number]
[2017-06-19 11:49] LABS: BILIRUBIN,URINE NEGATIVE (NEGATIVE); CLARITY,URINE VERY CLOUDY; COLOR,URINE YELLOW; GLUCOSE, URINE (UA) NEGATIVE (NEGATIVE); KETONES,URINE NEGATIVE (NEGATIVE); LEUKOCYTE ESTERASE ,URINE 3+ (NEGATIVE); NITRITE,URINE NEGATIVE (NEGATIVE); PH,URINE 7 (5-9); PROTEIN,URINE NEGATIVE (NEGATIVE); UROBILINOGEN,URINE NORMAL (NORMAL)
[2017-06-19 12:00] LABS: AMORPHOUS SEDIMENT,UR MOD AMOR PHOSPHATE /LPF; BACTERIA,URINE TRACE /HPF; CALCIUM OXALATE CRYSTALS,UR RARE /LPF; SQUAMOUS EPITHELIAL CELL,UR RARE /HPF
[2017-06-19] MEDS ORDERED: NS IV 1000 ML 1,000 ML IV ONE (12:07)
[2017-06-19 13:38] VITALS: BP 144/64
== END 2017-06-19 13:38 | disposition home or self-care (01) ==
LOC: EDUNIT# 10:12 → ER 10:13
DX: S51.012A Laceration without foreign body of left elbow, initial encounter (principal); G30.8 Other Alzheimer's disease; F02.80 Dementia in other diseases classified elsewhere, unspecified severity, without behavioral disturbance, psychotic disturbance, mood disturbance, and anxiety; R00.1 Bradycardia, unspecified; N39.0 Urinary tract infection, site not specified; N28.9 Disorder of kidney and ureter, unspecified; I25.10 Atherosclerotic heart disease of native coronary artery without angina pectoris; I10 Essential (primary) hypertension; Z79.02 Long term (current) use of antithrombotics/antiplatelets; Z79.82 Long term (current) use of aspirin; Z95.1 Presence of aortocoronary bypass graft; Z96.0 Presence of urogenital implants; W18.30XA Fall on same level, unspecified, initial encounter; Y92.129 Unspecified place in nursing home as the place of occurrence of the external cause
CPT/HCPCS: 36415; 70450; 72125; 80048; 80164; 81000; 84484; 85025; 87077; 87088; 87186; 90471; 90715; 93005; 93041; 96360

== ENCOUNTER 2017-08-24 23:17 | Emergency (ER) | payer MEDICARE, OTHER ==
[~2017-08-24] VITALS: Ht 170.2 cm; Wt 63.6 kg
[~2017-08-24 23:17] MED LIST changes: +DIVA-74 PO; -DIVA250T4 PO
[2017-08-24] MEDS ORDERED: TETANUS,DIPTH,PERTUSS P/F (BOOSTRIX) 0.5 ML VIAL IM STA (23:22)
--- NOTE | 2017-08-24 23:29 | ED General ---
General Chief Complaint: Trauma-Non Activation Stated Complaint: FALL,CUT ABOVE EYE Source of Information: EMS, Correction Records Exam Limitations: Other (PT WITH DEMENTIA AND CANNOT GIVE ANY INFORMATION) History of Present Illness Date Seen by Provider: Aug 24, 2017 Time Seen by Provider: 23:17 Initial Comments PT ARRIVES VIA EMS FROM ON LICENSE OF [facility]-NO IMMOBILIZATION PT WAS FOUND ON THE FLOOR IN HIS ROOM BY STAFF MEMBER--INCIDENT WAS NOT WITNESSED AND STAFF HAVE NO IDEA HOW LONG HE WAS LAYING ON FLOOR PT HAS LACERATION AND BRUISING AND SWELLING TO LEFT BROW AND CHEEK, AND SKIN TEAR/ABRASION TO LEFT UPPER ARM PT HAS DEMENTIA AND HAS SPEECH DIFFICULTY--EMS STATES IT WAS REPORTED TO THEM THAT THIS WAS NORMAL FOR PT PT CANNOT ANSWER ANY RELEVANT QUESTIONS AND MOSTLY IS TALKING NON-SENSICAL AND HAS STUTTERING SPEECH PT IS ON PLAVIX PT IS DNR, PER PRISON RECORDS PCP: DR. HUGHES/DR. Darcie HORNER Allergies and Home Medications Allergies Coded Allergies: tramadol (Unverified Adverse Reaction, Intermediate, HALLUCINATIONS, ) Home Medications Acetaminophen 325 Mg Tablet, 650 MG PO Q6H PRN for PAIN-MILD OR FEVER Prescribed by: MONAE HUGHES on 04/13/171126 Amlodipine Besylate 10 Mg Tablet, 10 MG PO DAILY Prescribed by: MONAE HUGHES on 04/13/171127 Aspirin 81 Mg Tablet.dr, 81 MG PO DAILY, (Reported) Bethanechol Chloride 50 Mg Tablet, 50 MG PO QID Prescribed by: MONAE HUGHES on 04/16/17 1302 Clopidogrel Bisulfate 75 Mg Tablet, 75 MG PO DAILY, (Reported) Divalproex Sodium 250 Mg Tablet.dr, 250 MG PO HS Prescribed by: MONAE HUGHES on 04/13/171126 Losartan Potassium 50 Mg Tablet, 50 MG PO BID Prescribed by: MONAE HUGHES on 04/13/171126 Melatonin 3 Mg Tablet, 6 MG PO HS Prescribed by: MONAE HUGHES on 04/13/171126 Nitroglycerin 0.4 Mg Tab.subl, 0.4 MG SL UD PRN for CHEST PAIN, (Reported) Potassium Chloride 8 Meq Capsule.er, 8 MEQ PO BID Prescribed by: MONAE HUGHES on 04/13/171126 Sulfamethoxazole/Trimethoprim 1 Each Tablet, 1 EACH PO BID Prescribed by: KAYLA PERKINS on 08/25/17 0143 Patient Home Medication List Home Medication List Reviewed: Yes Review of Systems Constitutional: other (KPT UNABLE TO ANSWER) Past Omnpwbq-Grmqlf-Ohqfeg Hx Patient Social History 2nd Hand Smoke Exposure: No Recent Foreign Travel: No Contact w/Someone Who Travel: No Recent Hopitalizations: No Immunizations Up To Date Tetanus Booster (TDap): Less than 5yrs PED Vaccines UTD: No Date of Pneumonia Vaccine: Nov 19, 2016 Date of Influenza Vaccine: Nov 19, 2016 Seasonal Allergies Seasonal Allergies: No Past Medical History Surgeries: Yes (BACK SURGERY) Cardiac, CABG, Orthopedic Respiratory: No Currently Using CPAP: No Currently Using BIPAP: No Cardiac: Yes (S/P CABG) Coronary Artery Disease, Hypertension Neurological: Yes (Alzheimers) Dementia, TIA Reproductive Disorders: No Sexually Transmitted Disease: No HIV/AIDS: No Genitourinary: Yes (URINARY RETENTION; INDWELLING FORD CATHETER) Bladder Infection Gastrointestinal: Yes Chronic Constipation Musculoskeletal: Yes (GENERALIZED WEAKNESS; IMPAIRED MOBILITY; FREQUENT FALLS) Chronic Back Pain Endocrine: No HEENT: Yes Loss of Vision: Bilateral Hearing Impairment: Hard of Hearing Cancer: No Psychosocial: Yes (DEMENTIA) Depression Integumentary: No Blood Disorders: No Family Medical History ELECTROLYTE IMBALANCE HYPOMAGENSEMIA Physical Exam Vital Signs Vital Signs - First Documented 08/24/17 23:20 Temp 97.1 Pulse 56 Resp 16 B/P (MAP) 169/70 (103) Pulse Ox 100 O2 Delivery Room Air Capillary Refill : Height, Weight, BMI Height: 5', 7.00" Weight: 140lbs 4.0oz, [id number] Method:Stated ,25.8BMI General Appearance: No Apparent Distress, WD/WN, Other (AWAKE, ALERT, SMILING. ) HEENT: PERRL/EOMI, TMs Normal, Pharynx Normal, Other (LEFT LATERAL BROW WITH 2 CM LACERATION WITH SWELLING AND BRUISING, WELL SWELLING AND BRUISING TO LEFT ZYGOMA; LEFT FACIAL TIC AND BLEPHAROSPASM) Neck: Full Range of Motion, Non Tender, Supple Respiratory: Chest Non Tender, Normal Breath Sounds, No Accessory Muscle Use, No Respiratory Distress Cardiovascular: Regular Rate, Rhythm, No Edema, No JVD, No Murmur, Normal Peripheral Pulses Gastrointestinal: Normal Bowel Sounds, No Pulsatile Mass, Non Tender, Soft Back: Normal Inspection, No CVA Tenderness, No Vertebral Tenderness Extremity: Normal Capillary Refill, Normal Range of Motion, No Calf Tenderness , No Pedal Edema, Other (ABRASION/SKIN TEAR TO LEFT UPPER ARM/DISTAL HUMERUS) Neurologic/Psychiatric: Alert, No Motor/Sensory Deficits, Normal Mood/Affect, preform machine operator II-XII Norm as Tested, Other (APPEARS ORIENTED TO FAMILY, BUT DISORIENTED TO PLACE, TIME, SITUATION, WITH MOSTLY NON-SENSICAL SPEECH, STUTTERING AND DIFFICULTY FOLLOWING COMMANDS) Skin: Normal Color, Warm/Dry, Ecchymosis, Other (LEFT BROW LACERATION ) Procedures/Interventions Other Wound Location LEFT BROW Wound Length (cm): 2 Wound's Depth, Shape: linear, sub Q Wound Explored: clean Betadine Prep?: No (BETASEPT) Other Closure Supply: Steri Strip 02/22", Mastisol, Wound Adhesive Progress/Results/Core Measures Suspected Sepsis SIRS Temperature: Pulse: Respiratory Rate: Laboratory Tests 08/24/17 23:34: White Blood Count 8.9 Blood Pressure / Mean: Laboratory Tests 08/24/17 23:34: Creatinine 1.10, INR Comment 1.1, Platelet Count 173, Total Bilirubin 0.5 Results/Orders Lab Results Laboratory Tests Test 08/24/17 00:29 08/24/17 23:34 Range/Units Urine Color OTHER H Urine Clarity CLEAR Urine pH 7 5-9 Urine Specific [place] 1.010 L 1.016-1.022 Urine Protein NEGATIVE NEGATIVE Urine Glucose (UA) NEGATIVE NEGATIVE Urine Ketones NEGATIVE NEGATIVE Urine Nitrite POSITIVE H NEGATIVE Urine Bilirubin NEGATIVE NEGATIVE Urine Urobilinogen NORMAL NORMAL MG/DL Urine Leukocyte Esterase NEGATIVE NEGATIVE Urine RBC (Auto) NEGATIVE NEGATIVE Urine RBC NONE /HPF Urine WBC NONE /HPF Urine Crystals NONE /LPF Urine Bacteria MODERATE H /HPF Urine Casts NONE /LPF Urine Mucus NEGATIVE /LPF Urine Culture Indicated YES White Blood Count 8.9 4.3-11.0 10^3/uL Red Blood Count 3.82 L 4.35-5.85 10^6/uL Hemoglobin 11.5 L 13.3-17.7 G/DL Hematocrit 35 L 40-54 % Mean Corpuscular Volume 92 80-99 FL Mean Corpuscular Hemoglobin 30 25-34 PG Mean Corpuscular Hemoglobin Concent 33 32-36 G/DL Red Cell Distribution Width 14.5 10.0-14.5 % Platelet Count 173 130-400 10^3/uL Mean Platelet Volume 11.9 H 7.4-10.4 FL Neutrophils (%) (Auto) 77 H 42-75 % Lymphocytes (%) (Auto) 11 L 12-44 % Monocytes (%) (Auto) 10 0-12 % Eosinophils (%) (Auto) 2 0-10 % Basophils (%) (Auto) 0 0-10 % Neutrophils # (Auto) 6.9 1.8-7.8 X 10^3 Lymphocytes # (Auto) 1.0 1.0-4.0 X 10^3 Monocytes # (Auto) 0.8 0.0-1.0 X 10^3 Eosinophils # (Auto) 0.2 0.0-0.3 10^3/uL Basophils # (Auto) 0.0 0.0-0.1 10^3/uL Prothrombin Time 14.7 12.2-14.7 SEC INR Comment 1.1 0.8-1.4 Activated Partial Thromboplast Time 35 24-35 SEC Sodium Level 142 135-145 MMOL/L Potassium Level 4.7 3.6-5.0 MMOL/L Chloride Level 106 98-107 MMOL/L Carbon Dioxide Level 26 21-32 MMOL/L Anion Gap 10 5-14 MMOL/L Blood Urea Nitrogen 25 H 7-18 MG/DL Creatinine 1.10 0.60-1.30 MG/DL Estimat Glomerular Filtration Rate > 60 BUN/Creatinine Ratio 23 Glucose Level 110 H 70-105 MG/DL Calcium Level 8.7 8.5-10.1 MG/DL Magnesium Level 2.6 H 1.8-2.4 MG/DL Total Bilirubin 0.5 0.1-1.0 MG/DL Aspartate Amino Transf (AST/SGOT) 22 5-34 U/L Alanine Aminotransferase (ALT/SGPT) 10 0-55 U/L Alkaline Phosphatase 56 40-136 U/L Troponin I < 0.30 <0.30 NG/ML Total Protein 6.7 6.4-8.2 GM/DL Albumin 3.5 3.2-4.5 GM/DL Valproic Acid (Depakene) Level 37.0 L 50.0-100.0 UG/ML My Orders Orders - MADDIE,KAYLA K DO Saline Lock/Iv-Start (08/24/17 23:22) Ekg Tracing (08/24/17 23:22) Monitor-Rhythm Ecg Trace Only (08/24/17:22) Ct Head/Face/Cervical Wo (08/24/17 23:22) Ct Thoracic/Lumbar Spine Wo (08/24/17 23:22) Cbc With Automated Diff (08/24/17 23:22) Comprehensive Metabolic Panel (08/24/17:22) Magnesium (08/24/17 23:22) Protime With Inr (08/24/17:22) Partial Thromboplastin Time (08/24/17 23:22) Troponin I (08/24/17:22) Ua Culture If Indicated (08/24/17:22) Dipht,Pertuss(Acell),Tet Adult (Boostrix (08/24/17 23:22) Valproic Acid (08/24/17 23:29) Chest 1 View, Ap/Pa Only (08/25/17 00:01) Humerus, Left, 2 Views (08/25/17 00:01) Pelvis (08/25/17 00:01) Urine Culture (08/24/17 00:29) Rx-Trimeth/Sulfameth Ds Tab (Rx-Bactrim/ (08/25/17 01:44) Vital Signs/I&O 08/24/17 08/25/17 23:20 01:59 Temp 97.1 97.0 Pulse 56 52 Resp 16 16 B/P (MAP) 169/70 (103) 130/69 (103) Pulse Ox 100 100 O2 Delivery Room Air Room Air Capillary Refill : Progress Note : Progress Note FAMILY IN ROOM SHORTLY AFTER ARRIVAL, AND REPORT THAT PT IS AT HIS NORMAL BASELINE IN ALL ASPECTS THEY REPORT THAT HE DOES HAVE A WALKER, BUT OFTEN FORGETS TO USE IT, AND AT TIMES IS IN A WHEELCHAIR AT [facility]ISON FAMILY ALSO REPORT THAT WHEN PT HAS UTI, HE HAS INCREASED FALLS NO DETERIORATION IN PT'S CONDITION DURING ER STAY PT REMAINED PLEASANTLY CONFUSED, AND COOPERATIVE ECG Initial ECG Impression Date: Aug 24, 2017 Initial ECG Impression Time: 23:21 Initial ECG Rate: 54 Initial ECG Rhythm: Normal Sinus (PAC) Diagnostic Imaging Comments CT HEAD/MAXILLOFACIALS/CERVICAL SPINE--LEFT PERIORBITAL /FACIAL HEMATOMA- LACERATION, OTHERWISE NO ACUTE PROCESS, CHRONIC CHANGES CT THORACIC/LUMBAR SPINE--NO ACUTE PROCESS, DEGENERATIVE CHANGES OF SPINE, CHOLELITHIASIS, NEPHROLITHIASIS PER [facility] VIA FAX @ [phone] CXR-NO ACUTE PROCESS PELVIS XRAY--NO ACUTE PROCESS LEFT HUMERUS XRAYS--NO ACUTE PROCESS PENDING RADIOLOGIST REVIEW Reviewed: Reviewed by Me Departure Impression Primary Impression: FALL VS SYNCOPE Additional Impressions: HEAD INJURY WITH UNKNOWN LOSS OF CONSCIOUSNESS LEFT BROW LACERATION LEFT FACIAL CONTUSION Skin tear of left upper extremity Bgswkkmdzj-ofylynozz-xgicast (DPT) vaccination administered at current visit Dementia UTI (urinary tract infection) due to urinary indwelling Ford catheter Disposition: SNF Condition: Stable Departure-Patient Inst. Referrals: MONAE HUGHES DO (PCP/Family) Primary Care Physician Patient Instructions: Concussion, Adult (DC), Contusion (DC), Diphtheria and Tetanus Toxoids, and Acellular Pertussis Vaccine, Eye Contusion (DC), How to Prevent Catheter Associated Urinary Tract Infections, Laceration Repair With Glue (DC), Preventing Falls in the Older Adult, Urinary Tract Infection, Adult ( DC) Add. Discharge Instructions: LEAVE STERI STRIPS AND WOUND ADHESIVE ALONE--WILL FALL OFF ON THEIR OWN IN A FEW DAYS DO NOT GET WET NO LOTIONS, CREAMS OR OINTMENTS TYLENOL NEEDED FOR PAIN ICE TO SORE AREAS AT 20 MINUTE INTERVALS FOLLOW UP WITH DR. HUGHES NEEDED RETURN TO ER IF SYMPTOMS WORSEN All discharge instructions reviewed with patient and/or family. Voiced understanding. Scripts Sulfamethoxazole/Trimethoprim (Bactrim Ds Tablet) 1 Each Tablet 1 EACH PO BID, #20 TAB Prov: KAYLA PERKINS DO 08/25/17 KAYLA PERKINS DO Aug 24, 2017 23:29
[2017-08-24 23:45] LABS: BASOPHILS % (AUTO) 0 % (0-10); EOSINOPHILS # (AUTO) 0.2 10^3/uL (0.0-0.3); EOSINOPHILS % (AUTO) 2 % (0-10); HEMATOCRIT 35 % (40-54); HEMOGLOBIN 11.5 G/DL (13.3-17.7); LYMPHOCYTES % (AUTO) 11 % (12-44); MEAN CORPUSCULAR HEMOGLOBIN 30 PG (25-34); MEAN CORPUSCULAR HGB CONC 33 G/DL (32-36); MEAN CORPUSCULAR VOLUME 92 FL (80-99); MEAN PLATELET VOLUME 11.9 FL (7.4-10.4); MONOCYTES # (AUTO) 0.8 X 10^3 (0.0-1.0); MONOCYTES % (AUTO) 10 % (0-12); NEUTROPHILS # (AUTO) 6.9 X 10^3 (1.8-7.8); NEUTROPHILS % (AUTO) 77 % (42-75); PLATELET COUNT 173 10^3/uL (130-400); RED BLOOD COUNT 3.82 10^6/uL (4.35-5.85); RED CELL DISTRIBUTION WIDTH 14.5 % (10.0-14.5); WHITE BLOOD COUNT 8.9 10^3/uL (4.3-11.0)
[2017-08-24 23:54] LABS: INR 1.1 (0.8-1.4); PROTHROMBIN TIME PATIENT 14.7 SEC (12.2-14.7)
[2017-08-25 00:05] LABS: ALANINE AMINOTRANSFERASE 10 U/L (0-55); ALBUMIN 3.5 GM/DL (3.2-4.5); ALKALINE PHOSPHATASE 56 U/L (40-136); BILIRUBIN,TOTAL 0.5 MG/DL (0.1-1.0); BUN/CREATININE RATIO 23; CALCIUM 8.7 MG/DL (8.5-10.1); CARBON DIOXIDE 26 MMOL/L (21-32); CHLORIDE 106 MMOL/L (98-107); GFR ESTIMATED > 60; GLUCOSE 110 MG/DL (70-105); MAGNESIUM 2.6 MG/DL (1.8-2.4); POTASSIUM 4.7 MMOL/L (3.6-5.0); SODIUM 142 MMOL/L (135-145); TOTAL PROTEIN 6.7 GM/DL (6.4-8.2)
[2017-08-25 00:54] LABS: BILIRUBIN,URINE NEGATIVE (NEGATIVE); CLARITY,URINE CLEAR; COLOR,URINE OTHER; GLUCOSE, URINE (UA) NEGATIVE (NEGATIVE); KETONES,URINE NEGATIVE (NEGATIVE); LEUKOCYTE ESTERASE ,URINE NEGATIVE (NEGATIVE); NITRITE,URINE POSITIVE (NEGATIVE); PH,URINE 7 (5-9); PROTEIN,URINE NEGATIVE (NEGATIVE); UROBILINOGEN,URINE NORMAL (NORMAL)
[2017-08-25 01:02] LABS: BACTERIA,URINE MODERATE /HPF
[2017-08-25] MEDS ORDERED: SULF1TAB35 PO (01:43)
[2017-08-25] MEDS ORDERED: RX-TRIMETH/SULFA. 160-800 MG (BACTRIM DS) TAB PPK#2 PO STA (01:44)
[2017-08-25 01:59] VITALS: BP 130/69
--- NOTE | 2017-08-25 06:22 | Diagnostic Imaging Report ---
INDICATION: Found down after injury Multiple contiguous axial CT images of the thoracic and lumbar spine are obtained. Sagittal and coronal reformatted images are produced. 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 Mild diffuse anterior osteophytes are seen throughout the thoracic spine, however, there is no evidence of an acute fracture or malalignment. There has been surgical discectomy at L4-5 with posterior L4-5 fusion. Otherwise lumbar vertebral body heights and disc spaces are maintained without evidence of acute fracture or malalignment. There is no evidence of paraspinous hematoma. Nonobstructing calculi are noted within the right kidney. Bladder is decompressed around Perkins catheter balloon. There is questionable edema or possible contusion within the retroperitoneum, bilaterally. IMPRESSION: Mild diffuse spondylosis with L4-5 surgical change. There is no CT evidence of acute thoracic or lumbar spinal abnormality. Dictated by: Dictated on workstation # [id number]
--- NOTE | 2017-08-25 06:28 | Diagnostic Imaging Report ---
PROCEDURE: CT head, face, and cervical spine without contrast. TECHNIQUE: Multiple contiguous axial images were obtained through the head, neck, and facial bones without the use of intravenous contrast. Sagittal and coronal reformations through the cervical spine and facial bones were also performed. INDICATION: Found down with apparent head injury CT head: Comparison is made to study of 06/19/2017. Ventricles and sulci are diffusely prominent. 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 Visualized paranasal sinuses are clear and the calvarium is intact. IMPRESSION: Senescent findings in the brain without CT evidence of acute intracranial abnormality. CT cervical spine: Cervical spinal curvature and alignment are unremarkable. There is mild diffuse disc space narrowing and prominent anterior osteophytes. No acute fracture or malalignment is identified and there is no evidence of paraspinous hematoma. Maxillofacial CT: There is swelling and likely contusion in the left periorbital region. There is no evidence of paranasal sinus air-fluid level. No fracture is identified. Globes are intact and there is no evidence of retro-orbital hematoma. Note is made of rightward deviation and spurring of the nasal septum. IMPRESSION: Left maxillofacial contusion without evidence of acute fracture or other significant abnormality. Dictated by: Dictated on workstation # [id number]
--- NOTE | 2017-08-25 07:03 | Diagnostic Imaging Report ---
INDICATION: Found down. FINDINGS: Single AP view of the pelvis is obtained. Surgical findings are present at the L4-L5 level. There is no evidence of an acute fracture. No abnormal lytic or sclerotic focus is seen. IMPRESSION: No acute abnormalities detected. Dictated by: Dictated on workstation # [id number]
--- NOTE | 2017-08-25 07:12 | Diagnostic Imaging Report ---
INDICATION: Found down with left arm injury AP and lateral views of the left humerus are obtained. FINDINGS: No acute fracture or dislocation is identified. No abnormal lytic or sclerotic focus is seen, and there is no radiopaque foreign body. IMPRESSION: No acute abnormality. Surgical clips are noted in the forearm. Dictated by: Dictated on workstation # [id number]
--- NOTE | 2017-08-25 07:33 | Diagnostic Imaging Report ---
INDICATION: Found down. EXAMINATION: Single AP view of the chest is obtained. Comparison is made to study of 02/06/2011. FINDINGS: Heart size and pulmonary vascularity are at the upper limits of normal. There is no evidence of pneumothorax or consolidation. No significant pleural fluid is seen. There is no evidence of fracture. IMPRESSION: Heart size and pulmonary vascularity are at the upper limits of normal. No definite edema or other acute abnormality seen in the thorax. Dictated by: Dictated on workstation # [id number]
[2017-08-27] MEDS ORDERED: NITR-65 PO (17:25)
== END 2017-08-25 02:01 ==
LOC: EDUNIT# 23:17 → ER 23:20
DX: S09.90XA Unspecified injury of head, initial encounter (principal); S01.112A Laceration without foreign body of left eyelid and periocular area, initial encounter; S41.112A Laceration without foreign body of left upper arm, initial encounter; N39.0 Urinary tract infection, site not specified; F03.90 Unspecified dementia, unspecified severity, without behavioral disturbance, psychotic disturbance, mood disturbance, and anxiety; I25.10 Atherosclerotic heart disease of native coronary artery without angina pectoris; I10 Essential (primary) hypertension; F32.9 Major depressive disorder, single episode, unspecified; Z91.81 History of falling; Z23 Encounter for immunization; Z87.19 Personal history of other diseases of the digestive system; Z87.448 Personal history of other diseases of urinary system; Z86.73 Personal history of transient ischemic attack (TIA), and cerebral infarction without residual deficits; Z79.02 Long term (current) use of antithrombotics/antiplatelets; Z88.6 Allergy status to analgesic agent; Z79.82 Long term (current) use of aspirin; Z95.1 Presence of aortocoronary bypass graft; W26.8XXA Contact with other sharp object(s), not elsewhere classified, initial encounter
CPT/HCPCS: 12011; 36415; 70450; 70486; 71045; 72125; 72128; 72131; 72170; 73060; 80053; 80164; 81000; 83735; 84484; 85025; 85610; 85730; 87077; 87088; 87186; 90471; 90715; 93005; 93041

== ENCOUNTER 2017-11-17 19:28 | Emergency (ER) | payer MEDICARE, OTHER ==
[~2017-11-17] VITALS: Ht 170.2 cm; Wt 63.6 kg
[~2017-11-17 19:28] MED LIST changes: -AMLO10TA2 PO; +AMLO10TA6 PO; -LOSA50TA36 PO; +LOSA50TA7 PO; +NITR-65 PO; +SULF1TAB35 PO
--- OUTSIDE RECORDS SUMMARY | 2017-11-17 19:34 | XMS REPORT | Continuity of Care Document ---
Author Author [facility] Organization [facility] Address Unknown Phone Unavailable Care Team Providers Care Cruise Staff Member Name Role Phone MONAE HUGHES DO PP Insurance Providers Payer Name Policy Number Subscriber Name Relationship [employer] [id number] Tae Pinto Self / Same As Patient For Life [id number] Tae Pinto Self / Same As Patient Advance Directives Directive Response Recorded Date Advance Directives Y 06/24/12 6:00pm Health Care Power of Certified Prosthetist N 06/24/12 6:00pm Organ Donor Y 06/24/12 6:00pm Problems No Known Problems or Medical conditions. Family History History Response Recorded Date/Time Hx Family Cancer N 06/24/12 6:00pm Hx Family Cardiac Disorders Y 06/24/12 6: 00pm Social History History Response Recorded Date/Time Alcohol Use Denies Use 06/24/12 6:00pm Recreational Drug Use N 06/24/12 6:00pm Recent Foreign Travel N 06/24/12 6:00pm Recent Infectious Disease Exposure N 08/01 6:00pm Hospitalization with Isolation Denies 11/01 5:31pm Sexually Transmitted Disease N 06/24/12 6 :00pm HIV/AIDS N 06/24/12 6:00pm Allergies, Adverse Reactions, Alerts Allergen Type Severity Reaction Last Updated tramadol Adverse Reaction Intermediate HALLUCINATIONS 06/24/12 Medications Medication Dose Units Route Sig Qty Days Potassium Chloride (Potassium Chloride 10 Meq Cap) 10 Meq PO TID Amlodipine/Benazepril HCl (Lotrel 5-20 Mg Capsule) 1 Each PO DAILY Atorvastatin Calcium (Lipitor 40MG) 40 Mg PO DAILY Telmisartan (Micardis) 40 Mg PO DAILY Aspirin (Aspirin Ec 81 Mg) 81 Mg PO DAILY Cyanocobalamin (Vitamin B-12) (B-12) 1000 Mcg PO DAILY Metoprolol Succinate (Toprol Xl) 100 Mg PO DAILY Acetaminophen/Codeine Phosphate (Tylenol-Codeine #3 Tablet) 1 Tab PO Q4H PRN 60 Cyclobenzaprine HCl (Cyclobenzaprine Hcl) 10 Mg PO TID PRN 40 Ticagrelor (Brilinta) 90 Mg PO BID Nitroglycerin (Nitrostat) 0.4 Mg SL Q5M PRN Enoxaparin Sodium (Lovenox) 80 Mg SQ BID Cyanocobalamin (Vitamin B-12) (B-12) 500 Mcg PO DAILY Amlodipine/Benazepril HCl (Lotrel 10-20 Mg Capsule) 5 - 20 Mg PO DAILY Clopidogrel Bisulfate (Plavix) 75 Mg PO DAILY Acetaminophen (Tylenol) 650 Mg PO Q6H PRN Potassium 10 Meq PO TID Simvastatin (Zocor) 60 Mg PO DAILY Immunizations Name Given Type Date of Pneumonia Vaccine 06/27/12 H Date of Influenza Vaccine 10/30/11 H Response Recorded Date/Time Status not known Unknown Results No Known Relevant Diagnostic Tests, Laboratory Data and/or Discharge Summary. Procedures Procedure Code Date FRAGMENTING OF KIDNEY STONE 69870 CYSTOSCOPY AND TREATMENT 66167 09/20/05 [place] CNCR SCR;COLNSCPY NO NE RSK G0121 03/30/08 LUMBAR & LUMBOSACRAL FUSION OF POSTERIOR COL/TECHNIQUE 81.07 06/24/12 INSERTION OF INTERBODY SPINAL FUSION DEVICE 84.51 06/24/12 FUSION/REFUS OF 2-3 VERTEBRAE 81.62 06/24 SPINAL CANAL EXPLOR NEC 03.09 06/24/12 Encounters Encounter Location Date/Time Discharged Inpatient [facility] 11:57am Departed Emergency Room [facility] 12 :00am
--- OUTSIDE RECORDS SUMMARY | 2017-11-17 19:34 | XMS REPORT | Continuity of Care Document ---
Author Author [facility] Organization [facility] Address Unknown Phone Unavailable Care Team Providers Care [employer] Administrator Name Role Phone MONAE HUGHES DO PP Insurance Providers Payer Name Policy Number Subscriber Name Relationship [employer] Medicare [id number] Tae Pinto Self / Same As Patient For Life [id number] Tae Pinto Self / Same As Patient Advance Directives Directive Response Recorded Date Advance Directives Y 06/24/12 6:00pm Health Care Power of Stained Glass Installer N 06/24/12 6:00pm Organ Donor Y 06/24/12 6:00pm Problems No Known Problems or Medical conditions. Family History History Response Recorded Date/Time Hx Family Cancer N 06/24/12 6:00pm Social History History Response Recorded Date/Time Alcohol Use Denies Use 06/24/12 6:00pm Recreational Drug Use N 06/24/12 6:00pm Recent Foreign Travel N 06/24/12 6:00pm Recent Infectious Disease Exposure N 08/01 6:00pm Hospitalization with Isolation Denies 11/01 5:31pm Allergies, Adverse Reactions, Alerts Allergen Type Severity Reaction Last Updated tramadol Adverse Reaction Intermediate HALLUCINATIONS 06/24/12 Medications Medication Dose Units Route Sig Qty Days Acetaminophen/Codeine Phosphate (Tylenol-Codeine #3 Tablet) 1 Tab PO Q4H PRN 60 Enoxaparin Sodium (Lovenox) 80 Mg SC Q12H 3 Cyclobenzaprine HCl (Cyclobenzaprine Hcl) 10 Mg PO TID PRN 40 Potassium Chloride (Potassium Chloride 10 Meq Cap) 10 Meq PO TID Amlodipine/Benazepril HCl (Lotrel 5-20 Mg Capsule) 1 Each PO DAILY Atorvastatin Calcium (Lipitor 40MG) 40 Mg PO DAILY Ticagrelor (Brilinta) 90 Mg PO BID Telmisartan (Micardis) 40 Mg PO DAILY Aspirin (Aspirin Ec 81 Mg) 81 Mg PO DAILY Cyanocobalamin (Vitamin B-12) (B-12) 1000 Mcg PO DAILY Nitroglycerin (Nitrostat) 0.4 Mg SL Q5M PRN Metoprolol Succinate (Toprol Xl) 100 Mg PO DAILY Enoxaparin Sodium (Lovenox) 80 Mg SQ BID [...] H Date of Influenza Vaccine 10/30/11 H pneumococcal polysaccharide PPV23 06/27/12 A Response Recorded Date/Time Status not known Unknown Results Test Date Result Interp. Ref. Range Activated Partial Thromboplast Time April 03, 2010 10: 12am 32 SEC N 24-35 Alanine Aminotransferase (ALT/SGPT) June 26, 2012 4:37am 47 U/L N 30-65 Albumin June 26, 2012 4:37am 3.0 G/DL L 3.4-5.0 Alkaline Phosphatase June 26, 2012 4:37am 87 U/L N 50-136 Amylase Level April 03, 2010 10:12am 52 U/L N 25-115 Aspartate Amino Transf (AST/SGOT) June 26, 2012 4:37am 44 U/L H 15-37 B-Type Natriuretic Peptide April 03, 2010 10:12am 61.3 PG/ML N 5.0-100.0 BUN/Creatinine Ratio June 26, 2012 4:37am 15 - Basophils # (Auto) June 17, 2012 1:15pm 0.0 10^3/uL N 0.0-0.1 Basophils (%) (Auto) June 17, 2012 1:15pm 0 % N 0-10 Bleeding Time September 19, 2005 10:22am 6.0 MIN N 2.5-9.5 Blood Urea Nitrogen June 26, 2012 4:37am 19 MG/DL H 7-18 Body Surface Area (Creat Clear) September 25, 2007 3:35am 1.88 - Calcium Level June 26, 2012 4:37am 7.5 MG /DL L 8.5-10.1 Carbon Dioxide Level June 26, 2012 4:37am 28 MMOL/L N 21-32 Chloride Level June 26, 2012 4:37am 109 MMOL/L N 101-110 Cholesterol Level June 21, 2010 10:04am 166 MG/DL N -200 Creatine Kinase MB November 08, 2011 7:45pm 0.9 NG/ML N 0.0-3.6 Creatinine June 26, 2012 4:37am 1.3 MG/ DL N 0.6-1.3 Creatinine Clearance September 25, 2007 3:35am 79 ML/MIN L 80-110 Eosinophils # (Auto) June 17, 2012 1:15pm 0.1 10^3/uL N 0.0-0.3 Eosinophils (%) (Auto) June 17, 2012 1:15pm 2 % N 0-10 Erythrocyte Sedimentation Rate November 08, 2009 7:20am 4 MM/HR N 0-30 Fasting Glucose May 16, 2005 8:07am 180 97 - Free Thyroxine February 17, 2008 2:45pm 1.10 NG/DL N 0.59-1.17 Glucose 1 Hour May 16, 2005 8:07am 4380 132 - Glucose 1/2 Hour May 16, 2005 8:07am 2580 145 - Glucose 2 Hour May 16, 2005 8:07am 7680 101 - Glucose Level June 26, 2012 4:37am 117 MG /DL H 74-106 HDL Cholesterol June 21, 2010 10:04am 68 MG/DL H 35-60 Hematocrit June 26, 2012 4:37am 38 % L 40-54 Hemoglobin June 26, 2012 4:37am 12.8 G/ DL L 13.3-17.7 LDL Cholesterol June 21, 2010 10:04am 81 MG/DL N 0-129 Lipase April 03, 2010 10:12am 92 U/L N 73-393 Lymphocytes # (Auto) June 17, 2012 1:15pm 1.6 X 10^3 N 1.0-4.0 Lymphocytes (%) (Auto) June 17, 2012 1:15pm 19 % N 12-44 Magnesium Level April 04, 2010 6:10am 1.8 MG/DL N 1.8-2.4 Mean Corpuscular Hemoglobin June 26, 2012 4:37am 31 PG N 25-34 Mean Corpuscular Hemoglobin Concent June 26, 2012 4:37am 33 G/DL N 32-36 Mean Corpuscular Volume June 26, 2012 4:37am 91 FL N 80-99 Mean Platelet Volume June 26, 2012 4:37am 11.8 FL H 7.4-10.4 Monocytes # (Auto) June 17, 2012 1:15pm 0.9 X 10^3 N 0.0-1.0 Monocytes (%) (Auto) June 17, 2012 1:15pm 11 % N 0-12 Myoglobin November 08, 2011 7:45pm 78 UG/L N 10-92 Neutrophils # (Auto) June 17, 2012 1:15pm 5.7 X 10^3 N 1.8-7.8 Neutrophils (%) (Auto) June 17, 2012 1:15pm 69 % N 42-75 Patient Height Inches (Creat Clear) September 25, 2007 3:35am 66 INCHES - Patient Weight Pounds (Creat Clear) September 25, 2007 3:35am 172 LBS - Platelet Count June 26, 2012 4:37am 148 10^3/uL N 130-400 Potassium Level June 26, 2012 4:37am 3.5 MMOL/L L 3.6-5.0 Prostate Specific Antigen February 17, 2008 2:45pm 2.26 NG/ML - Prothromb Time International Ratio April 03, 2010 10: 12am 1.0 N 0.8-1.4 Prothrombin Time April 03, 2010 10:12am 13.4 SEC N 12.2-14.7 Red Blood Count June 26, 2012 4:37am 4.20 10^6/uL L 4.35-5.85 Red Cell Distribution Width June 26, 2012 4:37am 14.0 % N 10.0-14.5 Sodium Level June 26, 2012 4:37am 144 MMOL/L N 135-145 Thyroid Stimulating Hormone (TSH) April 04, 2010 6:10am 1.24 UIU/ML N 0.34- 5.60 Total Bilirubin June 26, 2012 4:37am 0.7 MG/DL N 0.0-1.0 Total Protein June 26, 2012 4:37am 5.9 G/ DL L 6.4-8.2 Triglycerides Level June 21, 2010 10:04am 84 MG/DL N 30.0-150.0 Troponin I November 08, 2011 7:45pm < 0.10 NG/ML 0.00-0.10 Urine Bacteria September 19, 2005 10:07am Few H - Urine Bilirubin September 19, 2005 10:07am Negative - Urine Casts September 19, 2005 10:07am None - Urine Clarity September 19, 2005 10:07am Clear - Urine Collection Time September 25, 2007 3:35am 24 HRS - Urine Color September 19, 2005 10:07am Yellow - Urine Creatinine September 25, 2007 3:35am 153.2 MG/DL H 30-125 Urine Creatinine 24 Hour September 25, 2007 3:35am 1724 MG/24H H 2882-8837 Urine Crystals September 19, 2005 10:07am None - Urine Culture Indicated September 19, 2005 10:07am Yes - Urine Glucose (UA) September 19, 2005 10:07am Negative - Urine Ketones September 19, 2005 10:07am Negative - Urine Leukocyte Esterase September 19, 2005 10:07am Trace H - Urine Mucus September 19, 2005 10:07am Negative - Urine Nitrate September 19, 2005 10:07am Negative - Urine Protein September 19, 2005 10:07am Negative - Urine RBC September 19, 2005 10:07am None / HPF - Urine Specific [place] September 19, 2005 10:07am 1.015 L - Urine Total Protein 24 Hour September 25, 2007 3:35am 198.0 MG/24H H 0-149 Urine Total Volume September 25, 2007 3:35am 1125 ML - Urine Urobilinogen September 19, 2005 10:07am Normal MG/DL - Urine WBC September 19, 2005 10:07am 5-10 / HPF H - Urine pH September 19, 2005 10:07am 6.0 - VLDL Cholesterol June 21, 2010 10:04am 17 MG/DL N 5-40 White Blood Count June 26, 2012 4:37am 12.1 10^3/uL H 4.3-11.0 Estimat Glomerular Filtration Rate November 08, 2011 7: 45pm 49 - Urine Total Protein mg/dL September 25, 2007 3:35am 17.6 MG/DL H 6-12 Creatine Kinase April 03, 2010 10:00pm 47 mg/dl N 21-170 Cardiac Panel Pathologist Review April 03, 2010 10:12am SEE CARDIAC PATH REV - Procedures Procedure Code Date FRAGMENTING OF KIDNEY STONE 37315 CYSTOSCOPY AND TREATMENT 30260 09/20/05 [place] CNCR SCR;COLNSCPY NO HI RSK G0121 03/30/08 LUMBAR & LUMBOSACRAL FUSION OF POSTERIOR COL/TECHNIQUE 81.07 06/24/12 INSERTION OF INTERBODY SPINAL FUSION DEVICE 84.51 06/24/12 FUSION/REFUS OF 2-3 VERTEBRAE 81.62 06/24 SPINAL CANAL EXPLOR NEC 03.09 06/24/12 MRSA Screen 06/17/12 Urine Culture 09/19/05 Encounters Encounter Location Date/Time Discharged Inpatient [facility] 11:57am Departed Emergency Room [facility] 12 :00am
--- OUTSIDE RECORDS SUMMARY | 2017-11-17 19:36 | XMS REPORT | Continuity of Care Document ---
Author Author [facility] Organization [facility] Address Unknown Phone Unavailable Allergies Active Description Code Type Severity Reaction Onset Reported/Identified Relationship to Patient Clinical Status Yes tramadol [id number] Drug Allergy Moderate HALLUCINATIONS 06/24/2012 Medications There [...] RAGSDALE MD Ot 414.01 CORONARY ATHEROSCLEROSIS OF [place] CORON 06/27/2012 MITESH RAGSDALE MD Ot 715.90 [...] 10/28/2014 CARLOS HERRERA APRN Ot 789.00 10/28/2014 SOFÍA PETERSEN DO Ot 331.9 10/28/2014 SOFÍA PETERSEN DO Ot 433.30 10/28/2014 SOFÍA PETERSEN DO S Ot 780.93 10/28/2014 PRISCILAER DO, SOFÍA S Ot V81.5 01/28/2015 Ot 396.3 01/28/2015 [...] MELYSSA MORTON, MITESH Dahl Ot 724.02 01/28/2015 MITESH RAGSDALE MD Ot V72.63 01/28/2015 MITESH RAGSDALE MD Ot V74.8 01/28/2015 Ot 724.02 01/28/2015 CARLOS HERRERA APRN Ot 789.00 01/28/2015 RITADOM SOFÍA S Ot 331.9 01/28/2015 SAUL SOFÍA S Ot 433.30 01/28/2015 SAUL DO, SOFÍA S Ot 780.93 01/28/2015 RITADOM DO, SOFÍA S Ot V81.5 10/05/2015 Ot 433.10 CAROTID ARTERY OCCLUSION W O CEREBRAL IN 10/05/2015 Ot 272.4 HYPERLIPIDEMIA NEC/NOS 10/05/2015 Ot 414.01 CORONARY ATHEROSCLEROSIS OF [place] CORON 10/05/2015 Ot V58.69 OTH MED,LT, CURRENT USE 10/05/2015 Ot 429.3 CARDIOMEGALY 10/05/2015 Ot 786.2 COUGH 10/05/2015 Ot 414.00 CORON ATHEROSCLER NOS TYPE VESSEL, NATIV 10/05/2015 Ot V45.81 AORTOCORONARY BYPASS 10/05/2015 Ot 722.10 LUMBAR DISC DISPLACEMENT 10/05/2015 MELYSSA MORTON, MITESH Dahl Ot 724.02 SPINAL STENOSIS, LUMBAR REG, W/OUT NEURO 10/05/2015 MITESH RAGSDALE MD Ot V72.63 PRE-PROCEDURAL LABORATORY EXAMINATION 10/05/2015 MITESH RAGSDALE MD Ot V74.8 SCREEN-BACTERIAL DIS NEC 10/05/2015 Ot 724.02 SPINAL STENOSIS, LUMBAR REG, W/OUT NEURO 10/05/2015 CARLOS HERRERA TOP FLAVOR ATTENDANT Ot 789.00 ABDOMINAL PAIN, UNSPECIFIED SITE 10/05/2015 ORENDER DO, SOFÍA S Ot 331.9 CEREB DEGENERATION NOS 10/05/2015 ORENDER DO, SOFÍA S Ot 433.30 MULT BILTRAL ARTERY OCCLUSION WO CEREBRA 10/05/2015 ORENDER DO, SOFÍA S Ot 780.93 MEMORY LOSS 10/05/2015 ORENDER DO, SOFÍA S Ot V81.5 SCREEN FOR NEPHROPATHY 10/07/2015 ENRIQUE BURRELL TOP FLAVOR ATTENDANT Ot M54.2 CERVICALGIA 10/07/2015 ENRIQUE BURRELL TOP FLAVOR ATTENDANT Ot M54.6 PAIN IN THORACIC SPINE 10/07/2015 ENRIQUE BURRELL TOP FLAVOR ATTENDANT Ot R42 DIZZINESS AND GIDDINESS 10/07/2015 ENRIQUE BURRELL TOP FLAVOR ATTENDANT Ot R51 HEADACHE 10/07/2015 ENRIQUE BURRELL TOP FLAVOR ATTENDANT Ot S19.9XXA UNSPECIFIED INJURY OF NECK, INITIAL ENCO 10/07/2015 ENRIQUE BURRELL TOP FLAVOR ATTENDANT Ot W19.XXXA UNSPECIFIED FALL, INITIAL ENCOUNTER 10/07/2015 ENRIQUE BURRELL TOP FLAVOR ATTENDANT Ot Y92.[address] IN [facility] NON-INSTITUT (PRIVATE 10/07/2015 ENRIQUE BURRELL TOP FLAVOR ATTENDANT Ot Y99.8 OTHER EXTERNAL CAUSE STATUS 10/28/2015 Ot 433.10 CAROTID ARTERY OCCLUSION W O CEREBRAL IN 10/28/2015 Ot 272.4 HYPERLIPIDEMIA NEC/NOS 10/28/2015 Ot 414.01 CORONARY ATHEROSCLEROSIS OF [place] CORON 10/28/2015 Ot V58.69 OTH MED,LT, CURRENT USE 10/28/2015 Ot 429.3 CARDIOMEGALY 10/28/2015 Ot 786.2 COUGH 10/28/2015 Ot 414.00 CORON ATHEROSCLER NOS TYPE VESSEL, NATIV 10/28/2015 Ot V45.81 AORTOCORONARY BYPASS 10/28/2015 Ot 722.10 LUMBAR DISC DISPLACEMENT 10/28/2015 MITESH RAGSDALE MD Ot 724.02 SPINAL STENOSIS, LUMBAR REG, W/OUT NEURO 10/28/2015 MELYSSA MORTON, MITESH Dahl Ot V72.63 PRE-PROCEDURAL LABORATORY EXAMINATION 10/28/2015 MELYSSA MORTON, MITESH Dahl Ot V74.8 SCREEN-BACTERIAL DIS NEC 10/28/2015 Ot 724.02 SPINAL STENOSIS, LUMBAR REG, W/OUT NEURO 10/28/2015 JAVIEREUGENECARLOS R TOP FLAVOR ATTENDANT Ot 789.00 ABDOMINAL PAIN, UNSPECIFIED SITE 10/28/2015 ORENDER DO, SOFÍA S Ot 331.9 CEREB DEGENERATION NOS 10/28/2015 ORENDER DO, SOFÍA S Ot 433.30 MULT BILTRAL ARTERY OCCLUSION WO CEREBRA 10/28/2015 ORENDER DO, SOFÍA S Ot 780.93 MEMORY LOSS 10/28/2015 RITANDER , SOFÍA S Ot V81.5 SCREEN FOR NEPHROPATHY 10/29/2015 ENRIQUE BURRELL TOP FLAVOR ATTENDANT Ot M54.2 CERVICALGIA 10/29/2015 ENRIQUE BURRELL TOP FLAVOR ATTENDANT Ot M54.6 PAIN IN THORACIC SPINE 10/29/2015 ENRIQUE BURRELL TOP FLAVOR ATTENDANT Ot R42 DIZZINESS AND GIDDINESS 10/29/2015 ENRIQUE BURRELL TOP FLAVOR ATTENDANT Ot R51 HEADACHE 10/29/2015 ENRIQUE BURRELL TOP FLAVOR ATTENDANT Ot S19.9XXA UNSPECIFIED INJURY OF NECK, INITIAL ENCO 10/29/2015 ENRIQUE BURRELL TOP FLAVOR ATTENDANT Ot W19.XXXA UNSPECIFIED FALL, INITIAL ENCOUNTER 10/29/2015 ENRIQUE BURRELL TOP FLAVOR ATTENDANT Ot Y92.[address] IN [facility] NON-INSTITUT (PRIVATE 10/29/2015 ENRIQUE BURRELL TOP FLAVOR ATTENDANT Ot Y99.8 OTHER EXTERNAL CAUSE STATUS 11/08/2015 ENRIQUE BURRELL TOP FLAVOR ATTENDANT Ot M54.2 CERVICALGIA 11/08/2015 ENRIQUE BURRELL TOP FLAVOR ATTENDANT Ot M54.6 PAIN IN THORACIC SPINE 11/08/2015 ENRIQUE BURRELL TOP FLAVOR ATTENDANT Ot R42 DIZZINESS AND GIDDINESS 11/08/2015 ENRIQUE BURRELL TOP FLAVOR ATTENDANT Ot R51 HEADACHE 11/08/2015 ENRIQUE BURRELL TOP FLAVOR ATTENDANT Ot S19.9XXA UNSPECIFIED INJURY OF NECK, INITIAL ENCO 11/08/2015 ENRIQUE BURRELL TOP FLAVOR ATTENDANT Ot W19.XXXA UNSPECIFIED FALL, INITIAL ENCOUNTER 11/08/2015 ENRIQUE BURRELL TOP FLAVOR ATTENDANT Ot Y92.[address] [facility] (PRIVATE 11/08/2015 ENRIQUE BURRELL TOP FLAVOR ATTENDANT Ot Y99.8 OTHER EXTERNAL CAUSE STATUS 02/09/2016 Ot 429.3 CARDIOMEGALY 02/09/2016 Ot 786.2 COUGH 02/09/2016 Ot 414.00 CORON ATHEROSCLER NOS TYPE VESSEL, NATIV 02/09/2016 Ot V45.81 AORTOCORONARY BYPASS 02/09/2016 Ot 722.10 LUMBAR DISC DISPLACEMENT 02/09/2016 MITESH RAGSDALE MD Ot 724.02 SPINAL STENOSIS, LUMBAR REG, W/OUT NEURO 02/09/2016 MITESH RAGSDALE MD Ot V72.63 PRE-PROCEDURAL LABORATORY EXAMINATION 02/09/2016 MITESH RAGSDALE MD Ot V74.8 SCREEN-BACTERIAL DIS NEC 02/09/2016 Ot 724.02 SPINAL STENOSIS, LUMBAR REG, W/OUT NEURO 02/09/2016 CARLOS HERRERA TOP FLAVOR ATTENDANT Ot 789.00 ABDOMINAL PAIN, UNSPECIFIED SITE 02/09/2016 RITANDER DO, SOFÍA S Ot 331.9 CEREB DEGENERATION NOS 02/09/2016 RITANDER DO, SOFÍA S Ot 433.30 MULT BILTRAL ARTERY OCCLUSION WO CEREBRA 02/09/2016 ORENDER DO, SOFÍA S Ot 780.93 MEMORY LOSS 02/09/2016 SAUL SUAREZ, SOFÍA S Ot V81.5 SCREEN FOR NEPHROPATHY 11/07/2016 [...] LUMBAR REG, W/OUT NEURO 11/07/2016 CARLOS HERRERA TOP FLAVOR ATTENDANT Ot 789.00 ABDOMINAL PAIN, UNSPECIFIED SITE 11/07/2016 SAUL SUAREZ, SOFÍA S Ot 331.9 CEREB DEGENERATION NOS 11/07/2016 ANGIE PETERSEN DOLINE Gissel Ot 433.30 MULT BILTRAL ARTERY OCCLUSION WO CEREBRA 11/07/2016 ANGIE PETERSEN DOLINE Gissel Ot 780.93 MEMORY LOSS 11/07/2016 ANGIE PETERSEN DOLINE Gissel Ot V81.5 SCREEN FOR NEPHROPATHY 11/07/2016 ENRIQUE BURRELL TOP FLAVOR ATTENDANT Ot M54.2 CERVICALGIA 11/07/2016 ENRIQUE BURRELL TOP FLAVOR ATTENDANT Ot M54.6 PAIN IN THORACIC SPINE 11/07/2016 ENRIQUE BURRELL TOP FLAVOR ATTENDANT Ot R42 DIZZINESS AND GIDDINESS 11/07/2016 ENRIQUE BURRELL TOP FLAVOR ATTENDANT Ot R51 HEADACHE 11/07/2016 ENRIQUE BURRELL TOP FLAVOR ATTENDANT Ot S19.9XXA UNSPECIFIED INJURY OF NECK, INITIAL ENCO 11/07/2016 ENRIQUE BURRELL TOP FLAVOR ATTENDANT Ot W19.XXXA UNSPECIFIED FALL, INITIAL ENCOUNTER 11/07/2016 ENRIQUE BURRELL TOP FLAVOR ATTENDANT Ot Y92.[address] IN [facility] (PRIVATE 11/07/2016 ENRIQUE BURRELL TOP FLAVOR ATTENDANT Ot Y99.8 OTHER EXTERNAL CAUSE STATUS 11/08/2016 ENRIQUE BURRELL TOP FLAVOR ATTENDANT Ot M54.2 CERVICALGIA 11/08/2016 ENRIQUE BURRELL TOP FLAVOR ATTENDANT Ot M54.6 PAIN IN THORACIC SPINE 11/08/2016 ENRIQUE BURRELL APRN Ot R42 DIZZINESS AND GIDDINESS 11/08/2016 ENRIQUE BURRELL TOP FLAVOR ATTENDANT Ot R51 HEADACHE 11/08/2016 ENRIQUE BURRELL TOP FLAVOR ATTENDANT Ot S19.9XXA UNSPECIFIED INJURY OF NECK, INITIAL ENCO 11/08/2016 ENRIQUE BURRELL TOP FLAVOR ATTENDANT Ot W19.XXXA UNSPECIFIED FALL, INITIAL ENCOUNTER 11/08/2016 ENRIQUE BURRELL TOP FLAVOR ATTENDANT Ot Y92.[address] [facility] (PRIVATE 11/08/2016 ENRIQUE BURRELL TOP FLAVOR ATTENDANT Ot Y99.8 OTHER EXTERNAL CAUSE STATUS 02/13/2017 ENRIQUE BURRELL TOP FLAVOR ATTENDANT Ot M54.2 CERVICALGIA 02/13/2017 ENRIQUE BURRELL TOP FLAVOR ATTENDANT Ot M54.6 PAIN IN THORACIC SPINE 02/13/2017 ENRIQUE BURRELL TOP FLAVOR ATTENDANT Ot R42 DIZZINESS AND GIDDINESS 02/13/2017 ENRIQUE BURRELL TOP FLAVOR ATTENDANT Ot R51 HEADACHE 02/13/2017 INDRA ENRIQUE Jacobson APRN Ot S19.9XXA UNSPECIFIED INJURY OF NECK, INITIAL ENCO 02/13/2017 ENRIQUE BURRELL APRN Ot W19.XXXA UNSPECIFIED FALL, INITIAL ENCOUNTER 02/13/2017 INDRA ENRIQUE Jacobson APRN Ot Y92.[address] IN [facility] NON-INSTITUT (PRIVATE 02/13/2017 ENRIQUE BURRELL APRN Ot Y99.8 OTHER EXTERNAL CAUSE STATUS 04/08/2017 ENRIQUE BURRELL TOP FLAVOR ATTENDANT Ot M54.2 CERVICALGIA 04/08/2017 ENRIQUE BURRELL APRN Ot M54.6 PAIN IN THORACIC SPINE 04/08/2017 ENRIQUE BURRELL APRN Ot R42 DIZZINESS AND GIDDINESS 04/08/2017 ENRIQUE BURRELL APRN Ot R51 HEADACHE 04/08/2017 ENRIQUE BURRELL TOP FLAVOR ATTENDANT Ot S19.9XXA UNSPECIFIED INJURY OF NECK, INITIAL ENCO 04/08/2017 ENRIQUE BURRELL APRN Ot W19.XXXA UNSPECIFIED FALL, INITIAL ENCOUNTER 04/08/2017 ENRIQUE BURRELL APRN Ot Y92.[address] IN [facility] NON-INSTITUT (PRIVATE 04/08/2017 ENRIQUE BURRELL APRN Ot Y99.8 OTHER EXTERNAL CAUSE STATUS 04/08/2017 KAYLA PERKINS DO Ot F03.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 DEMENTIA WITHOUT BEHAVIORAL 04/08/2017 KAYLA PERKINS DO Ot I10 ESSENTIAL (PRIMARY) HYPERTENSION 04/08/2017 KAYLA PERKINS DO, Ot I25.10 ATHSCL HEART DISEASE OF [place] CORONARY 04/08/2017 KAYLA PERKINS DO Ot R26.9 UNSPECIFIED ABNORMALITIES OF GAIT AND MO 04/08/2017 KAYLA PERKINS DO Ot S39.012A STRAIN OF MUSCLE, FASCIA AND TENDON OF L 04/08/2017 KAYLA PERKINS DO Ot S50.01XA CONTUSION OF RIGHT ELBOW, INITIAL ENCOUN 04/08/2017 KAYLA PERKINS DO Ot S50.02XA CONTUSION OF LEFT ELBOW, INITIAL ENCOUNT 04/08/2017 KAYLA PERKINS DO Ot W01.198A FALL SAME LEV FROM SLIP/TRIP W STRIKE AG 04/08/2017 MADDIE SUAREZ KAYLA Mariama Ot 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 04/08/2017 MADDIEIsidro SUAREZ KAYLA K Ot Z88.1 ALLERGY STATUS TO OTHER ANTIBIOTIC AGENT 04/08/2017 MADDIE KAYLA Mariama Ot Z95.1 PRESENCE OF AORTOCORONARY BYPASS GRAFT 04/10/2017 MADDIE KAYLA Mariama Ot F03.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 DEMENTIA WITHOUT BEHAVIORAL 04/10/2017 KAYLA PERKINS DO Ot I10 ESSENTIAL (PRIMARY) HYPERTENSION 04/10/2017 KAYLA PERKINS DO Ot I25.10 ATHSCL HEART DISEASE OF [place] CORONARY 04/10/2017 KAYLA PERKINS DO Ot R26.9 UNSPECIFIED ABNORMALITIES OF GAIT AND MO 04/10/2017 KAYLA PERKINS DO Ot S39.012A STRAIN OF MUSCLE, FASCIA AND TENDON OF L 04/10/2017 KAYLA PERKINS DO Ot S50.01XA CONTUSION OF RIGHT ELBOW, INITIAL ENCOUN 04/10/2017 KAYLA PERKINS DO Ot S50.02XA CONTUSION OF LEFT ELBOW, INITIAL ENCOUNT 04/10/2017 KAYLA PERKINS DO Ot W01.198A FALL SAME LEV FROM SLIP/TRIP W STRIKE AG 04/10/2017 MADDIE SUAREZ KAYLA K Ot Z79.82 ASSISTED (CURRENT) USE OF ASPIRIN 04/10/2017 MADDIE SUAREZ KAYLA K Ot Z88.1 ALLERGY STATUS TO OTHER ANTIBIOTIC AGENT 04/10/2017 MADDIE SUAREZ KAYLA K Ot Z95.1 PRESENCE OF AORTOCORONARY BYPASS GRAFT 04/11/2017 ENRIQUE BURRELL APRN Ot M54.2 CERVICALGIA 04/11/2017 ENRIQUE BURRELL APRN Ot M54.6 PAIN IN THORACIC SPINE 04/11/2017 ENRIQUE BURRELL APRN Ot R42 DIZZINESS AND GIDDINESS 04/11/2017 ENRIQUE BURRELL APRN Ot R51 HEADACHE 04/11/2017 ENRIQUE BURRELL APRN Ot S19.9XXA UNSPECIFIED INJURY OF NECK, INITIAL ENCO 04/11/2017 ENRIQUE BURRELL APRN Ot W19.XXXA UNSPECIFIED FALL, INITIAL ENCOUNTER 04/11/2017 ENRIQUE BURRELL APRN Ot Y92.[address] [facility] NON-INSTITUT (PRIVATE 04/11/2017 ENRIQUE BURRELL TOP FLAVOR ATTENDANT Ot Y99.8 OTHER EXTERNAL CAUSE STATUS 04/11/2017 SOFÍA PETERSEN DO Ot E86.0 DEHYDRATION 04/11/2017 SOFÍA PETERSEN DO Ot E87.0 HYPEROSMOLALITY AND HYPERNATREMIA 04/11/2017 SOFÍA PETERSEN DO Ot E87.2 ACIDOSIS 04/11/2017 SOFÍA PETERSEN DO S Ot E87.6 HYPOKALEMIA 04/11/2017 SOFÍA PETERSEN DO S Ot F02.81 DEMENTIA IN OT DISEASES CLASSD ELSWHR W 04/11/2017 SOFÍA PETERSEN DO Ot F32.9 MAJOR DEPRESSIVE DISORDER, SINGLE EPISOD 04/11/2017 SOFÍA PETERSEN DO S Ot G30.9 ALZHEIMER'S DISEASE, UNSPECIFIED 04/11/2017 SOFÍA PETERSEN DO Ot H91.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 HEARING LOSS, UNSPECIFIED EA 04/11/2017 SOFÍA PETERSEN DO S Ot I10 ESSENTIAL (PRIMARY) HYPERTENSION 04/11/2017 SOFÍA PETERSEN DO S Ot I25.10 ATHSCL HEART DISEASE OF [place] CORONARY 04/11/2017 SOFÍA PETERSEN DO Ot M54.9 DORSALGIA, UNSPECIFIED 04/11/2017 SOFÍA PETERSEN DO S Ot N28.9 DISORDER OF KIDNEY AND URETER, UNSPECIFI 04/11/2017 SOFÍA PETERSEN DO Ot N39.0 URINARY TRACT INFECTION, SITE NOT SPECIF 04/11/2017 SOFÍA PETERSEN DO Ot R26.2 DIFFICULTY IN WALKING, NOT ELSEWHERE CLA 04/11/2017 SOFÍA PETERSEN DO S Ot R29.6 REPEATED FALLS 04/11/2017 SOFÍA PETERSEN DO S Ot R47.81 SLURRED SPEECH 04/11/2017 SOFÍA PETERSEN DO S Ot S50.311A ABRASION OF RIGHT ELBOW, INITIAL ENCOUNT 04/11/2017 SOFÍA PETERSEN DO Ot W19.XXXA UNSPECIFIED FALL, INITIAL ENCOUNTER 04/11/2017 SOFÍA PETERSEN DO Ot Z23 ENCOUNTER FOR IMMUNIZATION 04/11/2017 SOFÍA PETERSEN DO Ot Z66 DO NOT RESUSCITATE 04/11/2017 SOFÍA PETERSEN DO Ot Z95.1 PRESENCE OF AORTOCORONARY BYPASS GRAFT 04/16/2017 SOFÍA PETERSEN DO Ot E86.0 DEHYDRATION 04/16/2017 SOFÍA PETERSEN DO Ot E87.0 HYPEROSMOLALITY AND HYPERNATREMIA 04/16/2017 SOFÍA PETERSEN DO Ot E87.2 ACIDOSIS 04/16/2017 SOFÍA PETERSEN DO Ot E87.6 HYPOKALEMIA 04/16/2017 SOFÍA PETERSEN DO Ot F02.81 DEMENTIA IN OT DISEASES CLASSD ELSWHR W 04/16/2017 SOFÍA PETERSEN DO Ot F32.9 MAJOR DEPRESSIVE DISORDER, SINGLE EPISOD 04/16/2017 SOFÍA PETERSEN DO Ot G30.9 ALZHEIMER'S DISEASE, UNSPECIFIED 04/16/2017 SOFÍA PETERSEN DO Ot H91.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 HEARING LOSS, UNSPECIFIED EA 04/16/2017 SOFÍA PETERSEN DO Ot I10 ESSENTIAL (PRIMARY) HYPERTENSION 04/16/2017 SOFÍA PETERSEN DO Ot I25.10 ATHSCL HEART DISEASE OF [place] CORONARY 04/16/2017 SOFÍA PETERSEN DO Ot M54.9 DORSALGIA, UNSPECIFIED 04/16/2017 SOFÍA PETERSEN DO Ot N28.9 DISORDER OF KIDNEY AND URETER, UNSPECIFI 04/16/2017 SOFÍA PETERSEN DO Ot N39.0 URINARY TRACT INFECTION, SITE NOT SPECIF 04/16/2017 SOFÍA PETERSEN DO Ot R26.2 DIFFICULTY IN WALKING, NOT ELSEWHERE CLA 04/16/2017 SOFÍA PETERSEN DO Ot R29.6 REPEATED FALLS 04/16/2017 SOFÍA PETERSEN DO Ot R47.81 SLURRED SPEECH 04/16/2017 SOFÍA PETERSEN DO Ot S50.311A ABRASION OF RIGHT ELBOW, INITIAL ENCOUNT 04/16/2017 SOFÍA PETERSEN DO Ot W19.XXXA UNSPECIFIED FALL, INITIAL ENCOUNTER 04/16/2017 SOFÍA PETERSEN DO Ot Z23 ENCOUNTER FOR IMMUNIZATION 04/16/2017 SOFÍA PETERSEN DO Ot Z66 DO NOT RESUSCITATE 04/16/2017 SOFÍA PETERSEN DO Ot Z95.1 PRESENCE OF AORTOCORONARY BYPASS GRAFT 04/16/2017 SOFÍA PETERSEN DO Ot E86.0 DEHYDRATION 04/16/2017 SOFÍA PETERSEN DO Ot E87.0 HYPEROSMOLALITY AND HYPERNATREMIA 04/16/2017 SOFÍA PETERSEN DO Ot E87.2 ACIDOSIS 04/16/2017 SOFÍA PETERSEN DO Ot E87.6 HYPOKALEMIA 04/16/2017 SOFÍA PETERSEN DO Ot F02.81 DEMENTIA IN OT DISEASES CLASSD ELSWHR W 04/16/2017 SOFÍA PETERSEN DO Ot F05 DELIRIUM DUE TO KNOWN PHYSIOLOGICAL COND 04/16/2017 SOFÍA PETERSEN DO Ot F32.9 MAJOR DEPRESSIVE DISORDER, SINGLE EPISOD 04/16/2017 SOFÍA PETERSEN DO S Ot G30.9 ALZHEIMER'S DISEASE, UNSPECIFIED 04/16/2017 SOFÍA PETERSEN DO S Ot H91.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 HEARING LOSS, UNSPECIFIED EA 04/16/2017 SOFÍA PETERSEN DO Ot I10 ESSENTIAL (PRIMARY) HYPERTENSION 04/16/2017 SOFÍA PETERSEN DO Ot I25.10 ATHSCL HEART DISEASE OF [place] CORONARY 04/16/2017 SOFÍA PETERSEN DO Ot M54.9 DORSALGIA, UNSPECIFIED 04/16/2017 SOFÍA PETERSEN DO S Ot N28.9 DISORDER OF KIDNEY AND URETER, UNSPECIFI 04/16/2017 SOFÍA PETERSEN DO Ot N39.0 URINARY TRACT INFECTION, SITE NOT SPECIF 04/16/2017 SOFÍA PETERSEN DO Ot R26.2 DIFFICULTY IN WALKING, NOT ELSEWHERE CLA 04/16/2017 SOFÍA PETERSEN DO Ot R29.6 REPEATED FALLS 04/16/2017 SOFÍA PETERSEN DO Ot R33.9 RETENTION OF URINE, UNSPECIFIED 04/16/2017 SOFÍA PETERSEN DO Ot R47.81 SLURRED SPEECH 04/16/2017 SOFÍA PETERSEN DO S Ot R50.9 FEVER, UNSPECIFIED 04/16/2017 SOFÍA PETERSEN DO S Ot S50.311A ABRASION OF RIGHT ELBOW, INITIAL ENCOUNT 04/16/2017 SOFÍA PETERSEN DO Ot W19.XXXA UNSPECIFIED FALL, INITIAL ENCOUNTER 04/16/2017 SOFÍA PETERSEN DO Ot Z23 ENCOUNTER FOR IMMUNIZATION 04/16/2017 SOFÍA PETERSEN DO S Ot Z66 DO NOT RESUSCITATE 04/16/2017 SOFÍA PETERSEN DO S Ot Z95.1 PRESENCE OF AORTOCORONARY BYPASS GRAFT 04/17/2017 SOFÍA PETERSEN DO Ot E86.0 DEHYDRATION 04/17/2017 SOFÍA PETERSEN DO S Ot E87.0 HYPEROSMOLALITY AND HYPERNATREMIA 04/17/2017 SOFÍA PETERSEN DO S Ot E87.2 ACIDOSIS 04/17/2017 SOFÍA PETERSEN DO S Ot E87.6 HYPOKALEMIA 04/17/2017 SOFÍA PETERSEN DO S Ot F02.81 DEMENTIA IN OTH DISEASES CLASSD ELSWHR W 04/17/2017 SOFÍA PETERSEN DO Ot F32.9 MAJOR DEPRESSIVE DISORDER, SINGLE EPISOD 04/17/2017 SOFÍA PETERSEN DO S Ot G30.9 ALZHEIMER'S DISEASE, UNSPECIFIED 04/17/2017 SOFÍA PETERSEN DO S Ot H91.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 HEARING LOSS, UNSPECIFIED EA 04/17/2017 SOFÍA PETERSEN DO S Ot I10 ESSENTIAL (PRIMARY) HYPERTENSION 04/17/2017 SOFÍA PETERSEN DO S Ot I25.10 ATHSCL HEART DISEASE OF [place] CORONARY 04/17/2017 SOFÍA PETERSEN DO S Ot M54.9 DORSALGIA, UNSPECIFIED 04/17/2017 SOFÍA PETERSEN DO S Ot N28.9 DISORDER OF KIDNEY AND URETER, UNSPECIFI 04/17/2017 SOFÍA PETERSEN DO Ot N39.0 URINARY TRACT INFECTION, SITE NOT SPECIF 04/17/2017 SOFÍA PETERSEN DO S Ot R26.2 DIFFICULTY IN WALKING, NOT ELSEWHERE CLA 04/17/2017 SOFÍA PETERSEN DO Ot R29.6 REPEATED FALLS 04/17/2017 SOFÍA PETERSEN DO Ot R47.81 SLURRED SPEECH 04/17/2017 SOFÍA PETERSEN DO Ot S50.311A ABRASION OF RIGHT ELBOW, INITIAL ENCOUNT 04/17/2017 SOFÍA PETERSEN DO Ot W19.XXXA UNSPECIFIED FALL, INITIAL ENCOUNTER 04/17/2017 SOFÍA PETERSEN DO Ot Z23 ENCOUNTER FOR IMMUNIZATION 04/17/2017 SOFÍA PETERSEN DO Ot Z66 DO NOT RESUSCITATE 04/17/2017 SOFÍA PETERSEN DO Ot Z95.1 PRESENCE OF AORTOCORONARY BYPASS GRAFT 04/17/2017 SOFÍA PETERSEN DO Ot E86.0 DEHYDRATION 04/17/2017 SOFÍA PETERSEN DO Ot E87.0 HYPEROSMOLALITY AND HYPERNATREMIA 04/17/2017 SOFÍA PETERSEN DO Ot E87.2 ACIDOSIS 04/17/2017 SOFÍA PETERSEN DO Ot E87.6 HYPOKALEMIA 04/17/2017 SOFÍA PETERSEN DO Ot F02.81 DEMENTIA IN OT DISEASES CLASSD ELSWHR W 04/17/2017 SOFÍA PETERSEN DO Ot F32.9 MAJOR DEPRESSIVE DISORDER, SINGLE EPISOD 04/17/2017 SOFÍA PETERSEN DO Ot G30.9 ALZHEIMER'S DISEASE, UNSPECIFIED 04/17/2017 SOFÍA PETERSEN DO Ot H91.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 HEARING LOSS, UNSPECIFIED EA 04/17/2017 SOFÍA PETERSEN DO S Ot I10 ESSENTIAL (PRIMARY) HYPERTENSION 04/17/2017 SOFÍA PETERSEN DO Ot I25.10 ATHSCL HEART DISEASE OF [place] CORONARY 04/17/2017 SOFÍA PETERSEN DO Ot M54.9 DORSALGIA, UNSPECIFIED 04/17/2017 SOFÍA PETERSEN DO Ot N28.9 DISORDER OF KIDNEY AND URETER, UNSPECIFI 04/17/2017 SOFÍA PETERSEN DO Ot N39.0 URINARY TRACT INFECTION, SITE NOT SPECIF 04/17/2017 SOFÍA PETERSEN DO Ot R26.2 DIFFICULTY IN WALKING, NOT ELSEWHERE CLA 04/17/2017 SOFÍA PETERSEN DO Ot R29.6 REPEATED FALLS 04/17/2017 SOFÍA PETERSEN DO Ot R47.81 SLURRED SPEECH 04/17/2017 SOFÍA PETERSEN DO Ot S50.311A ABRASION OF RIGHT ELBOW, INITIAL ENCOUNT 04/17/2017 SOFÍA PETERSEN DO Ot W19.XXXA UNSPECIFIED FALL, INITIAL ENCOUNTER 04/17/2017 SOFÍA PETERSEN DO Ot Z23 ENCOUNTER FOR IMMUNIZATION 04/17/2017 SOFÍA PETERSEN DO Ot Z66 DO NOT RESUSCITATE 04/17/2017 SOFÍA PETERSEN DO Ot Z95.1 PRESENCE OF AORTOCORONARY BYPASS GRAFT 04/17/2017 SOFÍA PETERSEN DO Ot E86.0 DEHYDRATION 04/17/2017 SOFÍA PETERSEN DO Ot E87.0 HYPEROSMOLALITY AND HYPERNATREMIA 04/17/2017 SOFÍA PETERSEN DO Ot E87.2 ACIDOSIS 04/17/2017 SOFÍA PETERSEN DO Ot E87.6 HYPOKALEMIA 04/17/2017 SOFÍA PETERSEN DO Ot F02.81 DEMENTIA IN [facility] DISEASES CLASSD ELSWHR W 04/17/2017 SOFÍA PETERSEN DO Ot F32.9 MAJOR DEPRESSIVE DISORDER, SINGLE EPISOD 04/17/2017 SOFÍA PETERSEN DO Ot G30.9 ALZHEIMER'S DISEASE, UNSPECIFIED 04/17/2017 SOFÍA PETERSEN DO Ot H91.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 HEARING LOSS, UNSPECIFIED EA 04/17/2017 SOFÍA PETERSEN DO Ot I10 ESSENTIAL (PRIMARY) HYPERTENSION 04/17/2017 SOFÍA PETERSEN DO Ot I25.10 ATHSCL HEART DISEASE OF [place] CORONARY 04/17/2017 SOFÍA PETERSEN DO Ot M54.9 DORSALGIA, UNSPECIFIED 04/17/2017 SOFÍA PETERSEN DO Ot N28.9 DISORDER OF KIDNEY AND URETER, UNSPECIFI 04/17/2017 SOFÍA PETERSEN DO Ot N39.0 URINARY TRACT INFECTION, SITE NOT SPECIF 04/17/2017 SOFÍA PETERSEN DO Ot R26.2 DIFFICULTY IN WALKING, NOT ELSEWHERE CLA 04/17/2017 SOFÍA PETERSEN DO Ot R29.6 REPEATED FALLS 04/17/2017 SOFÍA PETERSEN DO Ot R47.81 SLURRED SPEECH 04/17/2017 SOFÍA PETERSEN DO Ot S50.311A ABRASION OF RIGHT ELBOW, INITIAL ENCOUNT 04/17/2017 SOFÍA PETERSEN DO Ot W19.XXXA UNSPECIFIED FALL, INITIAL ENCOUNTER 04/17/2017 SOFÍA PETERSEN DO Ot Z23 ENCOUNTER FOR IMMUNIZATION 04/17/2017 SOFÍA PETERSEN DO Ot Z66 DO NOT RESUSCITATE 04/17/2017 SOFÍA PETERSEN DO Ot Z95.1 PRESENCE OF AORTOCORONARY BYPASS GRAFT 04/17/2017 SOFÍA PETERSEN DO Ot E86.0 DEHYDRATION 04/17/2017 SOFÍA PETERSEN DO Ot E87.0 HYPEROSMOLALITY AND HYPERNATREMIA 04/17/2017 SOFÍA PETERSEN DO S Ot E87.2 ACIDOSIS 04/17/2017 SOFÍA PETERSEN DO S Ot E87.6 HYPOKALEMIA 04/17/2017 SOFÍA PETERSEN DO S Ot F02.81 DEMENTIA IN OTH DISEASES CLASSD ELSWHR W 04/17/2017 SOFÍA PETERSEN DO Ot F32.9 MAJOR DEPRESSIVE DISORDER, SINGLE EPISOD 04/17/2017 SOFÍA PETERSEN DO S Ot G30.9 ALZHEIMER'S DISEASE, UNSPECIFIED 04/17/2017 SOFÍA PETERSEN DO Ot H91.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 HEARING LOSS, UNSPECIFIED EA 04/17/2017 SOÍFA PETERSEN DO Ot I10 ESSENTIAL (PRIMARY) HYPERTENSION 04/17/2017 SOFÍA PETERSEN DO Ot I25.10 ATHSCL HEART DISEASE OF [place] CORONARY 04/17/2017 SOFÍA PETERSEN DO Ot M54.9 DORSALGIA, UNSPECIFIED 04/17/2017 SAUL SUAREZ SOFÍA Gissel Ot N28.9 DISORDER OF KIDNEY AND URETER, UNSPECIFI 04/17/2017 SAUL SUAREZ SOFÍA Gissel Ot N39.0 URINARY TRACT INFECTION, SITE NOT SPECIF 04/17/2017 SAUL SUAREZ SOFÍA Gissel Ot R26.2 DIFFICULTY IN WALKING, NOT ELSEWHERE CLA 04/17/2017 SAUL SUAREZLAWRENCESOFÍA S Ot R29.6 REPEATED FALLS 04/17/2017 PRISCILAEMILY SUAREZSOFÍA S Ot R47.81 SLURRED SPEECH 04/17/2017 SAUL SUAREZLAWRENCESOFÍA S Ot S50.311A ABRASION OF RIGHT ELBOW, INITIAL ENCOUNT 04/17/2017 SAUL SUAREZSOFÍA Gissel Ot W19.XXXA UNSPECIFIED FALL, INITIAL ENCOUNTER 04/17/2017 PRISCILAEMILY SUAREZSOFÍA Ot Z23 ENCOUNTER FOR IMMUNIZATION 04/17/2017 PRISCILAEMILY SUAREZSOFÍA Ot Z66 DO NOT RESUSCITATE 04/17/2017 PRISCILAEMILY SUAREZSOFÍA Ot Z95.1 PRESENCE OF AORTOCORONARY BYPASS GRAFT 06/11/2017 ENRIQEU BURRELL TOP FLAVOR ATTENDANT Ot M54.2 CERVICALGIA 06/11/2017 ENRIQUE BURRELL TOP FLAVOR ATTENDANT Ot M54.6 PAIN IN THORACIC SPINE 06/11/2017 ENRIQUE BURRELL TOP FLAVOR ATTENDANT Ot R42 DIZZINESS AND GIDDINESS 06/11/2017 ENRIQUE BURRELL TOP FLAVOR ATTENDANT Ot R51 HEADACHE 06/11/2017 ENRIQUE BURRELL TOP FLAVOR ATTENDANT Ot S19.9XXA UNSPECIFIED INJURY OF NECK, INITIAL ENCO 06/11/2017 ENRIQUE BURRELL TOP FLAVOR ATTENDANT Ot W19.XXXA UNSPECIFIED FALL, INITIAL ENCOUNTER 06/11/2017 ENRIQUE BURRELL TOP FLAVOR ATTENDANT Ot Y92.[address] IN UNSP NON-INSTITUT (PRIVATE 06/11/2017 ENRIQUE BURRELL TOP FLAVOR ATTENDANT Ot Y99.8 OTHER EXTERNAL CAUSE STATUS 06/11/2017 RITADOM SUAREZSOFÍA Ot N39.0 URINARY TRACT INFECTION, SITE NOT SPECIF 06/19/2017 FRANCESCA MORTON, DIANN Ramirez Ot F02.80 DEMENTIA IN OTH DISEASES CLASSD ELSWHR W 06/19/2017 BRUEGGEMANN MD, DIANN T Ot G30.8 OTHER ALZHEIMER'S DISEASE 06/19/2017 DIANN MA MD, Ot I10 ESSENTIAL (PRIMARY) HYPERTENSION 06/19/2017 DIANN MA MD Ot I25.10 ATHSCL HEART DISEASE OF [place] CORONARY 06/19/2017 DIANN MA MD, Ot N28.9 DISORDER OF KIDNEY AND URETER, UNSPECIFI 06/19/2017 DIANN MA MD, Ot N39.0 URINARY TRACT INFECTION, SITE NOT SPECIF 06/19/2017 DIANN MA MD, Ot R00.1 BRADYCARDIA, UNSPECIFIED 06/19/2017 DIANN AM MD, Ot S51.012A LACERATION WITHOUT FOREIGN BODY OF LEFT 06/19/2017 DIANN MA MD, Ot S59.902A UNSPECIFIED INJURY OF LEFT ELBOW, INITIA 06/19/2017 DIANN MA MD, Ot W18.30XA FALL ON SAME LEVEL, UNSPECIFIED, INITIAL 06/19/2017 DIANN MA MD Ot Y92.[address] IN SHELTER PLACE 06/19/2017 DIANN MA MD, Ot Z79.02 ASSISTED (CURRENT) USE OF ANTITHROMBOTI 06/19/2017 DIANN MA MD, Ot 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 06/19/2017 DIANN MA MD, Ot Z95.1 PRESENCE OF AORTOCORONARY BYPASS GRAFT 06/19/2017 DIANN MA MD, Ot Z96.0 PRESENCE OF UROGENITAL IMPLANTS 07/02/2017 SOFÍA PETERSEN DO Ot N39.0 URINARY TRACT INFECTION, SITE NOT SPECIF 08/25/2017 MADDIE DO KAYLA K Ot F03.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 DEMENTIA WITHOUT BEHAVIORAL 08/25/2017 MADDIE DO KAYLA K Ot F32.9 MAJOR DEPRESSIVE DISORDER, SINGLE EPISOD 08/25/2017 MADDIE DO KAYLA K Ot I10 ESSENTIAL (PRIMARY) HYPERTENSION 08/25/2017 MADDIE DO KAYLA K Ot I25.10 ATHSCL HEART DISEASE OF [place] CORONARY 08/25/2017 MADDIE DO KAYLA K Ot N39.0 URINARY TRACT INFECTION, SITE NOT SPECIF 08/25/2017 KAYLA PERKINS DO Ot S01.112A LACERATION W/O FB OF LEFT EYELID AND PER 08/25/2017 KAYLA PERKINS DO Ot S09.90XA UNSPECIFIED INJURY OF HEAD, INITIAL ENCO 08/25/2017 KAYLA PERKINS DO, Ot S41.112A LACERATION W/O FOREIGN BODY OF LEFT UPPE 08/25/2017 KAYLA PERKINS DO Ot W26.8XXA CONTACT WITH OTHER SHARP OBJECT(S), NEC, 08/25/2017 KAYLA PERKINS DO Ot Z23 ENCOUNTER FOR IMMUNIZATION 08/25/2017 KAYLA PERKINS DO, Ot Z79.02 ASSISTED (CURRENT) USE OF ANTITHROMBOTI 08/25/2017 KAYLA PERKINS DO, Ot Z79.82 ASSISTED (CURRENT) USE OF ASPIRIN 08/25/2017 KAYLA PERKINS DO, Ot Z86.73 PRSNL HX OF TIA (TIA), AND CEREB INFRC W 08/25/2017 KAYLA PERKINS DO, Ot Z87.19 PERSONAL HISTORY OF OTHER DISEASES OF TH 08/25/2017 KAYLA PERKINS DO, Ot Z87.448 PERSONAL HISTORY OF OTHER DISEASES OF UR 08/25/2017 KAYLA PERKNIS DO, Ot Z88.6 ALLERGY STATUS TO ANALGESIC AGENT STATUS 08/25/2017 KAYLA PERKINS DO, Ot Z91.81 HISTORY OF FALLING 08/25/2017 KAYLA PERKINS DO Ot Z95.1 PRESENCE OF AORTOCORONARY BYPASS GRAFT 08/27/2017 KAYLA PERKINS DO Ot F03.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 DEMENTIA WITHOUT BEHAVIORAL 08/27/2017 KAYLA PERKINS DO Ot F32.9 MAJOR DEPRESSIVE DISORDER, SINGLE EPISOD 08/27/2017 KAYLA PERKINS DO Ot I10 ESSENTIAL (PRIMARY) HYPERTENSION 08/27/2017 KAYLA PERKINS DO Ot I25.10 ATHSCL HEART DISEASE OF [place] CORONARY 08/27/2017 KAYLA PERKINS DO, Ot N39.0 URINARY TRACT INFECTION, SITE NOT SPECIF 08/27/2017 KAYLA PERKINS DO Ot S01.112A LACERATION W/O FB OF LEFT EYELID AND PER 08/27/2017 KAYLA PERKINS DO Ot S09.90XA UNSPECIFIED INJURY OF HEAD, INITIAL ENCO 08/27/2017 MADDIE SUAREZ KAYLA Leslie Ot S41.112A LACERATION W/O FOREIGN BODY OF LEFT UPPE 08/27/2017 MADDIE SUAREZ KAYLA Mariama Ot W26.8XXA CONTACT WITH OTHER SHARP OBJECT(S), NEC, 08/27/2017 MADDIE SUAREZ KAYLA K Ot Z23 ENCOUNTER FOR IMMUNIZATION 08/27/2017 MADDIE SUAREZKAYLA Ot Z79.02 ASSISTED (CURRENT) USE OF ANTITHROMBOTI 08/27/2017 MADDIE SUAREZKAYLA Ot Z79.82 ASSISTED (CURRENT) USE OF ASPIRIN 08/27/2017 MADDIE SUAREZ KAYLA K Ot Z86.73 PRSNL HX OF TIA (TIA), AND CEREB INFRC W 08/27/2017 MADDIE SUAREZKAYLA Ot Z87.19 PERSONAL HISTORY OF OTHER DISEASES OF TH 08/27/2017 MADDIE SUAREZKAYLA Ot Z87.448 PERSONAL HISTORY OF OTHER DISEASES OF UR 08/27/2017 MADDIE SUAREZKAYLA Ot Z88.6 ALLERGY STATUS TO ANALGESIC AGENT STATUS 08/27/2017 MADDIE SUAREZ KAYLA Mariama Ot Z91.81 HISTORY OF FALLING 08/27/2017 MADDIE SUAREZ KAYLA K Ot Z95.1 PRESENCE OF AORTOCORONARY BYPASS GRAFT 09/13/2017 ENRIQUE BURRELL APRN Ot M54.2 CERVICALGIA 09/13/2017 ENRIQUE BURRELL APRN Ot M54.6 PAIN IN THORACIC SPINE 09/13/2017 ENRIQUE BURRELL APRN Ot R42 DIZZINESS AND GIDDINESS 09/13/2017 ENRIQUE BURRELL APRN Ot R51 HEADACHE 09/13/2017 ENRIQUE BURRELL APRN Ot S19.9XXA UNSPECIFIED INJURY OF NECK, INITIAL ENCO 09/13/2017 ENRIQUE BURRELL APRN Ot W19.XXXA UNSPECIFIED FALL, INITIAL ENCOUNTER 09/13/2017 ENRIQUE BURRELL APRN Ot Y92.[address] [facility] [address] [facility] 09/13/2017 ENRIQUE BURRELL APRN Ot Y99.8 OTHER EXTERNAL CAUSE STATUS 09/13/2017 SOFÍA PETERSEN DO Ot N39.0 URINARY TRACT INFECTION, SITE NOT SPECIF Procedures Code Description Performed By Performed On 03. SPINAL CANAL EXPLOR NEC 06/24/2012 81.07 LUMBAR LUMBOSACRAL FUSION OF POSTERIOR 06/24/2012 81.62 FUSION/REFUS OF 2-3 VERTEBRAE 06/24/2012 84.51 INSERTION OF INTERBODY SPINAL FUSION DEV 06/24/2012 Results Test Result Range Capillary blood glucose measurement by glucometer (mass/volume) - 04/08/17 18: 54 Capillary blood glucose measurement by glucometer (mass/volume) 143 mg/dL 70-110 Complete urinalysis with reflex to culture - 04/08/17 20:08 Urine color determination YELLOW NRG Urine clarity determination CLEAR NRG Urine pH measurement by test strip 5 5-9 Specific gravity of urine by test strip 1.020 1.016- 1.022 Urine protein assay by test strip, semi-quantitative 3+ NEGATIVE Urine glucose detection by automated test strip NEGATIVE NEGATIVE Erythrocytes detection in urine sediment by light microscopy 4+ NEGATIVE Urine ketones detection by automated test strip 2+ NEGATIVE Urine nitrite detection by test strip NEGATIVE NEGATIVE Urine total bilirubin detection by test strip 1+ NEGATIVE Urine urobilinogen measurement by automated test strip (mass/volume) 1 mg/dL NORMAL Urine leukocyte esterase detection by dipstick 1+ NEGATIVE Automated urine sediment erythrocyte count by microscopy (number/high power field) [HPF] NRG Automated urine sediment leukocyte count by microscopy (number/high power field ) [HPF] NRG Bacteria detection in urine sediment by light microscopy TRACE NRG Crystals detection in urine sediment by light microscopy NONE NRG Casts detection in urine sediment by light microscopy PRESENT NRG Mucus detection in urine sediment by light microscopy NONE NRG Complete urinalysis with reflex to culture NO NRG Hyaline casts detection in urine sediment by light microscopy >50 NRG Complete blood count (CBC) with automated white blood cell (WBC) differential - 04/08/17 20:50 Blood leukocytes automated count (number/volume) 8.5 10*3/uL 4.3-11.0 Blood erythrocytes automated count (number/volume) 4.75 10*6/uL 4.35-5.85 Venous blood hemoglobin measurement (mass/volume) 14.6 g/dL 13.3-17.7 Blood hematocrit (volume fraction) 43 % 40-54 Automated erythrocyte mean corpuscular volume 90 [foz_us] 80-99 Automated erythrocyte mean corpuscular hemoglobin (mass per erythrocyte) 31 pg 25-34 Automated erythrocyte mean corpuscular hemoglobin concentration measurement ( mass/volume) 34 g/dL 32-36 Automated erythrocyte distribution width ratio 14.3 % 10.0-14.5 Automated blood platelet count (count/volume) 210 10*3/uL 130-400 Automated blood platelet mean volume measurement 10.9 [foz_us] 7.4-10.4 Automated blood neutrophils/100 leukocytes 75 % 42-75 Automated blood lymphocytes/100 leukocytes 13 % 12-44 Blood monocytes/100 leukocytes 12 % 0-12 Automated blood eosinophils/100 leukocytes 1 % 0-10 Automated blood basophils/100 leukocytes 0 % 0-10 Blood neutrophils automated count (number/volume) 6.3 10*3 1.8-7.8 Blood lymphocytes automated count (number/volume) 1.1 10*3 1.0-4.0 Blood monocytes automated count (number/volume) 1.0 10*3 0.0-1.0 Automated eosinophil count 0.0 10*3/uL 0.0-0.3 Automated blood basophil count (count/volume) 0.0 10*3/uL 0.0-0.1 Comprehensive metabolic panel - 04/08/17 20:50 Serum or plasma sodium measurement (moles/volume) 148 mmol/L 135-145 Serum or plasma potassium measurement (moles/volume) 3.3 mmol/L 3.6-5.0 Serum or plasma chloride measurement (moles/volume) 104 mmol/L 98-107 Carbon dioxide 28 mmol/L 21-32 Serum or plasma anion gap determination (moles/volume) 16 mmol/L 5-14 Serum or plasma urea nitrogen measurement (mass/volume) 27 mg/dL 7-18 Serum or plasma creatinine measurement (mass/volume) 1.31 mg/dL 0.60-1.30 Serum or plasma urea nitrogen/creatinine mass ratio 21 NRG Serum or plasma creatinine measurement with calculation of estimated glomerular filtration rate 52 NRG Serum or plasma glucose measurement (mass/volume) 103 mg/dL 70-105 Serum or plasma calcium measurement (mass/volume) 9.1 mg/dL 8.5-10.1 Serum or plasma total bilirubin measurement (mass/volume) 0.8 mg/dL 0.1-1.0 Serum or plasma alkaline phosphatase measurement (enzymatic activity/volume) 73 U/L 40-136 Serum or plasma aspartate aminotransferase measurement (enzymatic activity/ volume) 26 U/L 5-34 Serum or plasma alanine aminotransferase measurement (enzymatic activity/volume ) 13 U/L 0-55 Serum or plasma protein measurement (mass/volume) 6.4 g/dL 6.4-8.2 Serum or plasma albumin measurement (mass/volume) 3.9 g/dL 3.2-4.5 Magnesium - 04/08/17 20:50 Magnesium 2.4 mg/dL 1.8-2.4 Serum or plasma creatine kinase measurement (enzymatic activity/volume) - 04/08 20:50 Serum or plasma creatine kinase measurement (enzymatic activity/volume) 475 U/L 30-200 Serum or plasma creatine kinase MB measurement (enzymatic activity/volume) - 20:50 Serum or plasma creatine kinase MB measurement (enzymatic activity/volume) 3.1 ng/mL <6.6 Complete blood count (CBC) with automated white blood cell (WBC) differential - 04/09/17 04:35 Blood leukocytes automated count (number/volume) 6.7 10*3/uL 4.3-11.0 Blood erythrocytes automated count (number/volume) 4.25 10*6/uL 4.35-5.85 Venous blood hemoglobin measurement (mass/volume) 13.1 g/dL 13.3-17.7 Blood hematocrit (volume fraction) 38 % 40-54 Automated erythrocyte mean corpuscular volume 90 [foz_us] 80-99 Automated erythrocyte mean corpuscular hemoglobin (mass per erythrocyte) 31 pg 25-34 Automated erythrocyte mean corpuscular hemoglobin concentration measurement ( mass/volume) 34 g/dL 32-36 Automated erythrocyte distribution width ratio 14.2 % 10.0-14.5 Automated blood platelet count (count/volume) 165 10*3/uL 130-400 Automated blood platelet mean volume measurement 11.3 [foz_us] 7.4-10.4 Automated blood neutrophils/100 leukocytes 64 % 42-75 Automated blood lymphocytes/100 leukocytes 24 % 12-44 Blood monocytes/100 leukocytes 11 % 0-12 Automated blood eosinophils/100 leukocytes 1 % 0-10 Automated blood basophils/100 leukocytes 0 % 0-10 Blood neutrophils automated count (number/volume) 4.3 10*3 1.8-7.8 Blood lymphocytes automated count (number/volume) 1.6 10*3 1.0-4.0 Blood monocytes automated count (number/volume) 0.7 10*3 0.0-1.0 Automated eosinophil count 0.1 10*3/uL 0.0-0.3 Automated blood basophil count (count/volume) 0.0 10*3/uL 0.0-0.1 Comprehensive metabolic panel - 04/09/17 04:35 Serum or plasma sodium measurement (moles/volume) 144 mmol/L 135-145 Serum or plasma potassium measurement (moles/volume) 3.0 mmol/L 3.6-5.0 Serum or plasma chloride measurement (moles/volume) 111 mmol/L 98-107 Carbon dioxide 23 mmol/L 21-32 Serum or plasma anion gap determination (moles/volume) 10 mmol/L 5-14 Serum or plasma urea nitrogen measurement (mass/volume) 21 mg/dL 7-18 Serum or plasma creatinine measurement (mass/volume) 0.95 mg/dL 0.60-1.30 Serum or plasma urea nitrogen/creatinine mass ratio 22 NRG Serum or plasma creatinine measurement with calculation of estimated glomerular filtration rate > NRG Serum or plasma glucose measurement (mass/volume) 105 mg/dL 70-105 Serum or plasma calcium measurement (mass/volume) 8.1 mg/dL 8.5-10.1 Serum or plasma total bilirubin measurement (mass/volume) 0.8 mg/dL 0.1-1.0 Serum or plasma alkaline phosphatase measurement (enzymatic activity/volume) 63 U/L 40-136 Serum or plasma aspartate aminotransferase measurement (enzymatic activity/ volume) 26 U/L 5-34 Serum or plasma alanine aminotransferase measurement (enzymatic activity/volume ) 12 U/L 0-55 Serum or plasma protein measurement (mass/volume) 5.7 g/dL 6.4-8.2 Serum or plasma albumin measurement (mass/volume) 3.5 g/dL 3.2-4.5 Complete blood count (CBC) with automated white blood cell (WBC) differential - 04/10/17 06:02 Blood leukocytes automated count (number/volume) 6.7 10*3/uL 4.3-11.0 Blood erythrocytes automated count (number/volume) 4.19 10*6/uL 4.35-5.85 Venous blood hemoglobin measurement (mass/volume) 13.0 g/dL 13.3-17.7 Blood hematocrit (volume fraction) 38 % 40-54 Automated erythrocyte mean corpuscular volume 91 [foz_us] 80-99 Automated erythrocyte mean corpuscular hemoglobin (mass per erythrocyte) 31 pg 25-34 Automated erythrocyte mean corpuscular hemoglobin concentration measurement ( mass/volume) 34 g/dL 32-36 Automated erythrocyte distribution width ratio 14.3 % 10.0-14.5 Automated blood platelet count (count/volume) 170 10*3/uL 130-400 Automated blood platelet mean volume measurement 11.6 [foz_us] 7.4-10.4 Automated blood neutrophils/100 leukocytes 67 % 42-75 Automated blood lymphocytes/100 leukocytes 19 % 12-44 Blood monocytes/100 leukocytes 11 % 0-12 Automated blood eosinophils/100 leukocytes 3 % 0-10 Automated blood basophils/100 leukocytes 0 % 0-10 Blood neutrophils automated count (number/volume) 4.5 10*3 1.8-7.8 Blood lymphocytes automated count (number/volume) 1.3 10*3 1.0-4.0 Blood monocytes automated count (number/volume) 0.8 10*3 0.0-1.0 Automated eosinophil count 0.2 10*3/uL 0.0-0.3 Automated blood basophil count (count/volume) 0.0 10*3/uL 0.0-0.1 Whole blood basic metabolic panel - 04/10/17 06:02 Serum or plasma sodium measurement (moles/volume) 145 mmol/L 135-145 Serum or plasma potassium measurement (moles/volume) 3.3 mmol/L 3.6-5.0 Serum or plasma chloride measurement (moles/volume) 112 mmol/L 98-107 Carbon dioxide 24 mmol/L 21-32 Serum or plasma anion gap determination (moles/volume) 9 mmol/L 5-14 Serum or plasma urea nitrogen measurement (mass/volume) 14 mg/dL 7-18 Serum or plasma creatinine measurement (mass/volume) 0.94 mg/dL 0.60-1.30 Serum or plasma urea nitrogen/creatinine mass ratio 15 NRG Serum or plasma creatinine measurement with calculation of estimated glomerular filtration rate > NRG Serum or plasma glucose measurement (mass/volume) 109 mg/dL 70-105 Serum or plasma calcium measurement (mass/volume) 8.3 mg/dL 8.5-10.1 Complete blood count (CBC) with automated white blood cell (WBC) differential - 04/11/17 07:16 Blood leukocytes automated count (number/volume) 15.4 10*3/uL 4.3-11.0 Blood erythrocytes automated count (number/volume) 5.00 10*6/uL 4.35-5.85 Venous blood hemoglobin measurement (mass/volume) 15.4 g/dL 13.3-17.7 Blood hematocrit (volume fraction) 45 % 40-54 Automated erythrocyte mean corpuscular volume 89 [foz_us] 80-99 Automated erythrocyte mean corpuscular hemoglobin (mass per erythrocyte) 31 pg 25-34 Automated erythrocyte mean corpuscular hemoglobin concentration measurement ( mass/volume) 35 g/dL 32-36 Automated erythrocyte distribution width ratio 14.5 % 10.0-14.5 Automated blood platelet count (count/volume) 216 10*3/uL 130-400 Automated blood platelet mean volume measurement 10.7 [foz_us] 7.4-10.4 Automated blood neutrophils/100 leukocytes 92 % 42-75 Automated blood lymphocytes/100 leukocytes 3 % 12-44 Blood monocytes/100 leukocytes 5 % 0-12 Automated blood eosinophils/100 leukocytes 0 % 0-10 Automated blood basophils/100 leukocytes 0 % 0-10 Blood neutrophils automated count (number/volume) 14.1 10*3 1.8-7.8 Blood lymphocytes automated count (number/volume) 0.4 10*3 1.0-4.0 Blood monocytes automated count (number/volume) 0.8 10*3 0.0-1.0 Automated eosinophil count 0.0 10*3/uL 0.0-0.3 Automated blood basophil count (count/volume) 0.0 10*3/uL 0.0-0.1 Whole blood basic metabolic panel - 04/11/17 07:16 Serum or plasma sodium measurement (moles/volume) 144 mmol/L 135-145 Serum or plasma potassium measurement (moles/volume) 3.5 mmol/L 3.6-5.0 Serum or plasma chloride measurement (moles/volume) 112 mmol/L 98-107 Carbon dioxide 19 mmol/L 21-32 Serum or plasma anion gap determination (moles/volume) 13 mmol/L 5-14 Serum or plasma urea nitrogen measurement (mass/volume) 13 mg/dL 7-18 Serum or plasma creatinine measurement (mass/volume) 1.36 mg/dL 0.60-1.30 Serum or plasma urea nitrogen/creatinine mass ratio 10 NRG Serum or plasma creatinine measurement with calculation of estimated glomerular filtration rate 50 NRG Serum or plasma glucose measurement (mass/volume) 160 mg/dL 70-105 Serum or plasma calcium measurement (mass/volume) 9.0 mg/dL 8.5-10.1 Magnesium - 04/11/17 07:16 Magnesium 1.7 mg/dL 1.8-2.4 Blood manual differential performed detection - 04/11/17 07:16 Blood monocytes/100 leukocytes 7 % NRG Manual blood segmented neutrophils/100 leukocytes 83 % NRG Blood band neutrophils/100 leukocytes 6 % NRG Manual blood lymphocytes/100 leukocytes 4 % NRG Manual eosinophils/100 leukocytes in nose 0 % NRG Manual blood basophils/100 leukocytes 0 % NRG Blood erythrocyte morphology finding identification NORMAL NRG Automated blood complete blood count (hemogram) panel - 04/11/17 16:20 Blood leukocytes automated count (number/volume) 14.5 10*3/uL 4.3-11.0 Blood erythrocytes automated count (number/volume) 4.93 10*6/uL 4.35-5.85 Venous blood hemoglobin measurement (mass/volume) 15.0 g/dL 13.3-17.7 Blood hematocrit (volume fraction) 44 % 40-54 Automated erythrocyte mean corpuscular volume 90 [foz_us] 80-99 Automated erythrocyte mean corpuscular hemoglobin (mass per erythrocyte) 30 pg 25-34 Automated erythrocyte mean corpuscular hemoglobin concentration measurement ( mass/volume) 34 g/dL 32-36 Automated erythrocyte distribution width ratio 14.8 % 10.0-14.5 Automated blood platelet count (count/volume) 204 10*3/uL 130-400 Automated blood platelet mean volume measurement 11.1 [foz_us] 7.4-10.4 Capillary blood glucose measurement by glucometer (mass/volume) - 04/11/17 21: 24 Capillary blood glucose measurement by glucometer (mass/volume) 94 mg/dL 70-110 Automated blood complete blood count (hemogram) panel - 04/12/17 05:55 Blood leukocytes automated count (number/volume) 8.8 10*3/uL 4.3-11.0 Blood erythrocytes automated count (number/volume) 4.25 10*6/uL 4.35-5.85 Venous blood hemoglobin measurement (mass/volume) 13.2 g/dL 13.3-17.7 Blood hematocrit (volume fraction) 39 % 40-54 Automated erythrocyte mean corpuscular volume 91 [foz_us] 80-99 Automated erythrocyte mean corpuscular hemoglobin (mass per erythrocyte) 31 pg 25-34 Automated erythrocyte mean corpuscular hemoglobin concentration measurement ( mass/volume) 34 g/dL 32-36 Automated erythrocyte distribution width ratio 14.8 % 10.0-14.5 Automated blood platelet count (count/volume) 176 10*3/uL 130-400 Automated blood platelet mean volume measurement 11.1 [foz_us] 7.4-10.4 Comprehensive metabolic panel - 04/12/17 05:55 Serum or plasma sodium measurement (moles/volume) 146 mmol/L 135-145 Serum or plasma potassium measurement (moles/volume) 3.5 mmol/L 3.6-5.0 Serum or plasma chloride measurement (moles/volume) 113 mmol/L 98-107 Carbon dioxide 22 mmol/L 21-32 Serum or plasma anion gap determination (moles/volume) 11 mmol/L 5-14 Serum or plasma urea nitrogen measurement (mass/volume) 17 mg/dL 7-18 Serum or plasma creatinine measurement (mass/volume) 1.26 mg/dL 0.60-1.30 Serum or plasma urea nitrogen/creatinine mass ratio 13 NRG Serum or plasma creatinine measurement with calculation of estimated glomerular filtration rate 55 NRG Serum or plasma glucose measurement (mass/volume) 99 mg/dL 70-105 Serum or plasma calcium measurement (mass/volume) 8.3 mg/dL 8.5-10.1 Serum or plasma total bilirubin measurement (mass/volume) 1.0 mg/dL 0.1-1.0 Serum or plasma alkaline phosphatase measurement (enzymatic activity/volume) 57 U/L 40-136 Serum or plasma aspartate aminotransferase measurement (enzymatic activity/ volume) 22 U/L 5-34 Serum or plasma alanine aminotransferase measurement (enzymatic activity/volume ) 11 U/L 0-55 Serum or plasma protein measurement (mass/volume) 5.7 g/dL 6.4-8.2 Serum or plasma albumin measurement (mass/volume) 3.3 g/dL 3.2-4.5 Influenza virus A and B antigen detection - 04/12/17 22:00 FLU RESULT NEGATIVE FOR INFLUENZA A AND B ANTIGENS BY [facility] Complete blood count (CBC) with automated white blood cell (WBC) differential - 04/13/17 05:40 Blood leukocytes automated count (number/volume) 7.3 10*3/uL 4.3-11.0 Blood erythrocytes automated count (number/volume) 4.23 10*6/uL 4.35-5.85 Venous blood hemoglobin measurement (mass/volume) 13.3 g/dL 13.3-17.7 Blood hematocrit (volume fraction) 39 % 40-54 Automated erythrocyte mean corpuscular volume 91 [foz_us] 80-99 Automated erythrocyte mean corpuscular hemoglobin (mass per erythrocyte) 31 pg 25-34 Automated erythrocyte mean corpuscular hemoglobin concentration measurement ( mass/volume) 35 g/dL 32-36 Automated erythrocyte distribution width ratio 14.4 % 10.0-14.5 Automated blood platelet count (count/volume) 179 10*3/uL 130-400 Automated blood platelet mean volume measurement 11.4 [foz_us] 7.4-10.4 Automated blood neutrophils/100 leukocytes 70 % 42-75 Automated blood lymphocytes/100 leukocytes 16 % 12-44 Blood monocytes/100 leukocytes 10 % 0-12 Automated blood eosinophils/100 leukocytes 4 % 0-10 Automated blood basophils/100 leukocytes 0 % 0-10 Blood neutrophils automated count (number/volume) 5.1 10*3 1.8-7.8 Blood lymphocytes automated count (number/volume) 1.2 10*3 1.0-4.0 Blood monocytes automated count (number/volume) 0.7 10*3 0.0-1.0 Automated eosinophil count 0.3 10*3/uL 0.0-0.3 Automated blood basophil count (count/volume) 0.0 10*3/uL 0.0-0.1 Comprehensive metabolic panel - 04/13/17 05:40 Serum or plasma sodium measurement (moles/volume) 144 mmol/L 135-145 Serum or plasma potassium measurement (moles/volume) 3.4 mmol/L 3.6-5.0 Serum or plasma chloride measurement (moles/volume) 109 mmol/L 98-107 Carbon dioxide 25 mmol/L 21-32 Serum or plasma anion gap determination (moles/volume) 10 mmol/L 5-14 Serum or plasma urea nitrogen measurement (mass/volume) 16 mg/dL 7-18 Serum or plasma creatinine measurement (mass/volume) 0.99 mg/dL 0.60-1.30 Serum or plasma urea nitrogen/creatinine mass ratio 16 NRG Serum or plasma creatinine measurement with calculation of estimated glomerular filtration rate > NRG Serum or plasma glucose measurement (mass/volume) 106 mg/dL 70-105 Serum or plasma calcium measurement (mass/volume) 8.5 mg/dL 8.5-10.1 Serum or plasma total bilirubin measurement (mass/volume) 0.7 mg/dL 0.1-1.0 Serum or plasma alkaline phosphatase measurement (enzymatic activity/volume) 63 U/L 40-136 Serum or plasma aspartate aminotransferase measurement (enzymatic activity/ volume) 20 U/L 5-34 Serum or plasma alanine aminotransferase measurement (enzymatic activity/volume ) 11 U/L 0-55 Serum or plasma protein measurement (mass/volume) 5.7 g/dL 6.4-8.2 Serum or plasma albumin measurement (mass/volume) 3.4 g/dL 3.2-4.5 Complete blood count (CBC) with automated white blood cell (WBC) differential - 04/15/17 05:40 Blood leukocytes automated count (number/volume) 8.5 10*3/uL 4.3-11.0 Blood erythrocytes automated count (number/volume) 4.67 10*6/uL 4.35-5.85 Venous blood hemoglobin measurement (mass/volume) 14.1 g/dL 13.3-17.7 Blood hematocrit (volume fraction) 42 % 40-54 Automated erythrocyte mean corpuscular volume 89 [foz_us] 80-99 Automated erythrocyte mean corpuscular hemoglobin (mass per erythrocyte) 30 pg 25-34 Automated erythrocyte mean corpuscular hemoglobin concentration measurement ( mass/volume) 34 g/dL 32-36 Automated erythrocyte distribution width ratio 13.9 % 10.0-14.5 Automated blood platelet count (count/volume) 238 10*3/uL 130-400 Automated blood platelet mean volume measurement 11.1 [foz_us] 7.4-10.4 Automated blood neutrophils/100 leukocytes 74 % 42-75 Automated blood lymphocytes/100 leukocytes 15 % 12-44 Blood monocytes/100 leukocytes 8 % 0-12 Automated blood eosinophils/100 leukocytes 3 % 0-10 Automated blood basophils/100 leukocytes 0 % 0-10 Blood neutrophils automated count (number/volume) 6.3 10*3 1.8-7.8 Blood lymphocytes automated count (number/volume) 1.2 10*3 1.0-4.0 Blood monocytes automated count (number/volume) 0.7 10*3 0.0-1.0 Automated eosinophil count 0.2 10*3/uL 0.0-0.3 Automated blood basophil count (count/volume) 0.0 10*3/uL 0.0-0.1 Comprehensive metabolic panel - 04/15/17 05:40 Serum or plasma sodium measurement (moles/volume) 143 mmol/L 135-145 Serum or plasma potassium measurement (moles/volume) 3.0 mmol/L 3.6-5.0 Serum or plasma chloride measurement (moles/volume) 108 mmol/L 98-107 Carbon dioxide 24 mmol/L 21-32 Serum or plasma anion gap determination (moles/volume) 11 mmol/L 5-14 Serum or plasma urea nitrogen measurement (mass/volume) 10 mg/dL 7-18 Serum or plasma creatinine measurement (mass/volume) 0.83 mg/dL 0.60-1.30 Serum or plasma urea nitrogen/creatinine mass ratio 12 NRG Serum or plasma creatinine measurement with calculation of estimated glomerular filtration rate > NRG Serum or plasma glucose measurement (mass/volume) 112 mg/dL 70-105 Serum or plasma calcium measurement (mass/volume) 8.6 mg/dL 8.5-10.1 Serum or plasma total bilirubin measurement (mass/volume) 0.9 mg/dL 0.1-1.0 Serum or plasma alkaline phosphatase measurement (enzymatic activity/volume) 69 U/L 40-136 Serum or plasma aspartate aminotransferase measurement (enzymatic activity/ volume) 21 U/L 5-34 Serum or plasma alanine aminotransferase measurement (enzymatic activity/volume ) 17 U/L 0-55 Serum or plasma protein measurement (mass/volume) 6.6 g/dL 6.4-8.2 Serum or plasma albumin measurement (mass/volume) 3.7 g/dL 3.2-4.5 Comprehensive metabolic panel - 04/16/17 05:23 Serum or plasma sodium measurement (moles/volume) 145 mmol/L 135-145 Serum or plasma potassium measurement (moles/volume) 3.3 mmol/L 3.6-5.0 Serum or plasma chloride measurement (moles/volume) 110 mmol/L 98-107 Carbon dioxide 22 mmol/L 21-32 Serum or plasma anion gap determination (moles/volume) 13 mmol/L 5-14 Serum or plasma urea nitrogen measurement (mass/volume) 15 mg/dL 7-18 Serum or plasma creatinine measurement (mass/volume) 1.02 mg/dL 0.60-1.30 Serum or plasma urea nitrogen/creatinine mass ratio 15 NRG Serum or plasma creatinine measurement with calculation of estimated glomerular filtration rate > NRG Serum or plasma glucose measurement (mass/volume) 105 mg/dL 70-105 Serum or plasma calcium measurement (mass/volume) 8.4 mg/dL 8.5-10.1 Serum or plasma total bilirubin measurement (mass/volume) 0.6 mg/dL 0.1-1.0 Serum or plasma alkaline phosphatase measurement (enzymatic activity/volume) 66 U/L 40-136 Serum or plasma aspartate aminotransferase measurement (enzymatic activity/ volume) 22 U/L 5-34 Serum or plasma alanine aminotransferase measurement (enzymatic activity/volume ) 20 U/L 0-55 Serum or plasma protein measurement (mass/volume) 6.5 g/dL 6.4-8.2 Serum or plasma albumin measurement (mass/volume) 3.6 g/dL 3.2-4.5 Complete blood count (CBC) with automated white blood cell (WBC) differential - 04/16/17 05:32 Blood leukocytes automated count (number/volume) 7.0 10*3/uL 4.3-11.0 Blood erythrocytes automated count (number/volume) 4.53 10*6/uL 4.35-5.85 Venous blood hemoglobin measurement (mass/volume) 13.8 g/dL 13.3-17.7 Blood hematocrit (volume fraction) 41 % 40-54 Automated erythrocyte mean corpuscular volume 90 [foz_us] 80-99 Automated erythrocyte mean corpuscular hemoglobin (mass per erythrocyte) 31 pg 25-34 Automated erythrocyte mean corpuscular hemoglobin concentration measurement ( mass/volume) 34 g/dL 32-36 Automated erythrocyte distribution width ratio 14.0 % 10.0-14.5 Automated blood platelet count (count/volume) 239 10*3/uL 130-400 Automated blood platelet mean volume measurement 11.3 [foz_us] 7.4-10.4 Automated blood neutrophils/100 leukocytes 61 % 42-75 Automated blood lymphocytes/100 leukocytes 25 % 12-44 Blood monocytes/100 leukocytes 10 % 0-12 Automated blood eosinophils/100 leukocytes 4 % 0-10 Automated blood basophils/100 leukocytes 0 % 0-10 Blood neutrophils automated count (number/volume) 4.3 10*3 1.8-7.8 Blood lymphocytes automated count (number/volume) 1.7 10*3 1.0-4.0 Blood monocytes automated count (number/volume) 0.7 10*3 0.0-1.0 Automated eosinophil count 0.3 10*3/uL 0.0-0.3 Automated blood basophil count (count/volume) 0.0 10*3/uL 0.0-0.1 Complete urinalysis with reflex to culture - 06/08/17 20:00 Urine color determination YELLOW NRG Urine clarity determination SLIGHTLY CLOUDY NRG Urine pH measurement by test strip 8 5-9 Specific gravity of urine by test strip 1.010 1.016- 1.022 Urine protein assay by test strip, semi-quantitative 3+ NEGATIVE Urine glucose detection by automated test strip NEGATIVE NEGATIVE Erythrocytes detection in urine sediment by light microscopy 5+ NEGATIVE Urine ketones detection by automated test strip 1+ NEGATIVE Urine nitrite detection by test strip NEGATIVE NEGATIVE Urine total bilirubin detection by test strip NEGATIVE NEGATIVE Urine urobilinogen measurement by automated test strip (mass/volume) NORMAL NORMAL Urine leukocyte esterase detection by dipstick 3+ NEGATIVE Automated urine sediment erythrocyte count by microscopy (number/high power field) NONE NRG Automated urine sediment leukocyte count by microscopy (number/high power field ) > [HPF] NRG Bacteria detection in urine sediment by light microscopy TRACE NRG Crystals detection in urine sediment by light microscopy NONE NRG Casts detection in urine sediment by light microscopy NONE NRG Mucus detection in urine sediment by light microscopy NEGATIVE NRG Complete urinalysis with reflex to culture NO NRG Bacterial urine culture - 06/08/17 20:00 Bacterial urine culture [id number] NRG COLONY COUNT >100,000/ML NRG FTX;REPORTABLE SENSITIVITY REPORTED 06/11 15:20 NRG Bacterial susceptibility panel - 06/08/17 20:00 Gentamicin susceptibility test by minimum inhibitory concentration < = NRG Trimethoprim/sulfamethoxazole susceptibility test by minimum inhibitoryconcentration S NRG Ampicillin susceptibility test by minimum inhibitory concentration 4 NRG Tobramycin susceptibility test by minimum inhibitory concentration < = NRG Cefazolin susceptibility test by minimum inhibitory concentration 8 NRG Ceftriaxone susceptibility test by minimum inhibitory concentration <= NRG Ampicillin/sulbactam susceptibility test by minimum inhibitory concentration S NRG Piperacillin/tazobactam susceptibility test by minimum inhibitory concentration S NRG Ciprofloxacin susceptibility test by minimum inhibitory concentration >= NRG Meropenem susceptibility test by minimum inhibitory concentration < = NRG Nitrofurantoin susceptibility test by minimum inhibitory concentration 128 NRG Aztreonam susceptibility test by minimum inhibitory concentration < = NRG Complete blood count (CBC) with automated white blood cell (WBC) differential - 06/19/17 10:32 Blood leukocytes automated count (number/volume) 5.0 10*3/uL 4.3-11.0 Blood erythrocytes automated count (number/volume) 4.40 10*6/uL 4.35-5.85 Venous blood hemoglobin measurement (mass/volume) 13.4 g/dL 13.3-17.7 Blood hematocrit (volume fraction) 40 % 40-54 Automated erythrocyte mean corpuscular volume 91 [foz_us] 80-99 Automated erythrocyte mean corpuscular hemoglobin (mass per erythrocyte) 31 pg 25-34 Automated erythrocyte mean corpuscular hemoglobin concentration measurement ( mass/volume) 34 g/dL 32-36 Automated erythrocyte distribution width ratio 13.9 % 10.0-14.5 Automated blood platelet count (count/volume) 167 10*3/uL 130-400 Automated blood platelet mean volume measurement 11.3 [foz_us] 7.4-10.4 Automated blood neutrophils/100 leukocytes 65 % 42-75 Automated blood lymphocytes/100 leukocytes 22 % 12-44 Blood monocytes/100 leukocytes 10 % 0-12 Automated blood eosinophils/100 leukocytes 2 % 0-10 Automated blood basophils/100 leukocytes 1 % 0-10 Blood neutrophils automated count (number/volume) 3.3 10*3 1.8-7.8 Blood lymphocytes automated count (number/volume) 1.1 10*3 1.0-4.0 Blood monocytes automated count (number/volume) 0.5 10*3 0.0-1.0 Automated eosinophil count 0.1 10*3/uL 0.0-0.3 Automated blood basophil count (count/volume) 0.0 10*3/uL 0.0-0.1 Whole blood basic metabolic panel - 06/19/17 10:32 Serum or plasma sodium measurement (moles/volume) 142 mmol/L 135-145 Serum or plasma potassium measurement (moles/volume) 3.7 mmol/L 3.6-5.0 Serum or plasma chloride measurement (moles/volume) 106 mmol/L 98-107 Carbon dioxide 25 mmol/L 21-32 Serum or plasma anion gap determination (moles/volume) 11 mmol/L 5-14 Serum or plasma urea nitrogen measurement (mass/volume) 21 mg/dL 7-18 Serum or plasma creatinine measurement (mass/volume) 1.31 mg/dL 0.60-1.30 Serum or plasma urea nitrogen/creatinine mass ratio 16 NRG Serum or plasma creatinine measurement with calculation of estimated glomerular filtration rate 52 NRG Serum or plasma glucose measurement (mass/volume) 70 mg/dL 70-105 Serum or plasma calcium measurement (mass/volume) 8.8 mg/dL 8.5-10.1 Serum or plasma troponin i.cardiac measurement (mass/volume) - 06/19/17 10:32 Serum or plasma troponin i.cardiac measurement (mass/volume) < ng/ mL <0.30 [id number] - 06/19/17 10:32 [id number] 14.9 ug/mL 50.0-100.0 Complete urinalysis with reflex to culture - 06/19/17 11:41 Urine color determination YELLOW NRG Urine clarity determination VERY CLOUDY NRG Urine pH measurement by test strip 7 5-9 Specific gravity of urine by test strip 1.010 1.016- 1.022 Urine protein assay by test strip, semi-quantitative NEGATIVE NEGATIVE Urine glucose detection by automated test strip NEGATIVE NEGATIVE Erythrocytes detection in urine sediment by light microscopy NEGATIVE NEGATIVE Urine ketones detection by automated test strip NEGATIVE NEGATIVE Urine nitrite detection by test strip NEGATIVE NEGATIVE Urine total bilirubin detection by test strip NEGATIVE NEGATIVE Urine urobilinogen measurement by automated test strip (mass/volume) NORMAL NORMAL Urine leukocyte esterase detection by dipstick 3+ NEGATIVE Automated urine sediment erythrocyte count by microscopy (number/high power field) NONE NRG Automated urine sediment leukocyte count by microscopy (number/high power field ) [HPF] NRG Bacteria detection in urine sediment by light microscopy TRACE NRG Squamous epithelial cells detection in urine sediment by light microscopy RARE NRG Crystals detection in urine sediment by light microscopy PRESENT NRG Casts detection in urine sediment by light microscopy NONE NRG Mucus detection in urine sediment by light microscopy NEGATIVE NRG Complete urinalysis with reflex to culture YES NRG Amorphous sediment detection in urine sediment by light microscopy MOD BELEM PHOSPHATE NRG Calcium oxalate crystals detection in urine sediment by light microscopy RARE NRG Bacterial urine culture - 06/19/17 11:41 Bacterial urine culture [id number] NRG COLONY COUNT 10,000/ML - 100,000/ML NRG FTX;REPORTABLE SENSITIVITY REPORTED AT 1230, 5--18 NR URINE CULTURE RESULTS PLUS [facility] Bacterial susceptibility panel - 06/19/17 11:41 Gentamicin susceptibility test by minimum inhibitory concentration S NR Vancomycin susceptibility test by minimum inhibitory concentration 1 NRG Levofloxacin susceptibility test by minimum inhibitory concentration >= NRG Tetracycline susceptibility test by minimum inhibitory concentration >= NR Ampicillin susceptibility test by minimum inhibitory concentration < = NRG Ciprofloxacin susceptibility test by minimum inhibitory concentration R NRG Nitrofurantoin susceptibility test by minimum inhibitory concentration <= NR Linezolid susceptibility test by minimum inhibitory concentration 2 NR Bacterial susceptibility panel - 06/19/17 11:41 Gentamicin susceptibility test by minimum inhibitory concentration < = NRG Trimethoprim/sulfamethoxazole susceptibility test by minimum inhibitoryconcentration S NR Ampicillin susceptibility test by minimum inhibitory concentration 4 NR Tobramycin susceptibility test by minimum inhibitory concentration < = NRG Cefazolin susceptibility test by minimum inhibitory concentration 16 NR Ceftriaxone susceptibility test by minimum inhibitory concentration <= NRG Ampicillin/sulbactam susceptibility test by minimum inhibitory concentration <= NRG Piperacillin/tazobactam susceptibility test by minimum inhibitory concentration S NR Ciprofloxacin susceptibility test by minimum inhibitory concentration >= NR Meropenem susceptibility test by minimum inhibitory concentration < = NR Nitrofurantoin susceptibility test by minimum inhibitory concentration 256 NR Aztreonam susceptibility test by minimum inhibitory concentration < = NRG Complete urinalysis with reflex to culture - 08/24/17 00:29 Urine color determination OTHER NRG Urine clarity determination CLEAR NRG Urine pH measurement by test strip 7 5-9 Specific gravity of urine by test strip 1.010 1.016- 1.022 Urine protein assay by test strip, semi-quantitative NEGATIVE NEGATIVE Urine glucose detection by automated test strip NEGATIVE NEGATIVE Erythrocytes detection in urine sediment by light microscopy NEGATIVE NEGATIVE Urine ketones detection by automated test strip NEGATIVE NEGATIVE Urine nitrite detection by test strip POSITIVE NEGATIVE Urine total bilirubin detection by test strip NEGATIVE NEGATIVE Urine urobilinogen measurement by automated test strip (mass/volume) NORMAL NORMAL Urine leukocyte esterase detection by dipstick NEGATIVE NEGATIVE Automated urine sediment erythrocyte count by microscopy (number/high power field) NONE NRG Automated urine sediment leukocyte count by microscopy (number/high power field ) NONE NRG Bacteria detection in urine sediment by light microscopy MODERATE NRG Crystals detection in urine sediment by light microscopy NONE NRG Casts detection in urine sediment by light microscopy NONE NRG Mucus detection in urine sediment by light microscopy NEGATIVE NRG Complete urinalysis with reflex to culture YES NRG Bacterial urine culture - 08/24/17 00:29 Bacterial urine culture RML NRG COLONY COUNT . NRG FTX;REPORTABLE RML SENT SENSITIVITY REPORT 08/26 09:05 NRG RML Sensitivity Panel - 08/24/17 00:29 Gentamicin susceptibility test by minimum inhibitory concentration < = NRG Trimethoprim/sulfamethoxazole susceptibility test by minimum inhibitoryconcentration > NRG Levofloxacin susceptibility test by minimum inhibitory concentration > NRG Ampicillin susceptibility test by minimum inhibitory concentration > NRG Cefazolin susceptibility test by minimum inhibitory concentration > NRG Ceftriaxone susceptibility test by minimum inhibitory concentration > NRG Ciprofloxacin susceptibility test by minimum inhibitory concentration > NRG Meropenem susceptibility test by minimum inhibitory concentration < = NRG Nitrofurantoin susceptibility test by minimum inhibitory concentration <= NRG Amoxicillin and clavulanate potassium susc PING R NRG Complete blood count (CBC) with automated white blood cell (WBC) differential - 08/24/17 23:34 Blood leukocytes automated count (number/volume) 8.9 10*3/uL 4.3-11.0 Blood erythrocytes automated count (number/volume) 3.82 10*6/uL 4.35-5.85 Venous blood hemoglobin measurement (mass/volume) 11.5 g/dL 13.3-17.7 Blood hematocrit (volume fraction) 35 % 40-54 Automated erythrocyte mean corpuscular volume 92 [foz_us] 80-99 Automated erythrocyte mean corpuscular hemoglobin (mass per erythrocyte) 30 pg 25-34 Automated erythrocyte mean corpuscular hemoglobin concentration measurement ( mass/volume) 33 g/dL 32-36 Automated erythrocyte distribution width ratio 14.5 % 10.0-14.5 Automated blood platelet count (count/volume) 173 10*3/uL 130-400 Automated blood platelet mean volume measurement 11.9 [foz_us] 7.4-10.4 Automated blood neutrophils/100 leukocytes 77 % 42-75 Automated blood lymphocytes/100 leukocytes 11 % 12-44 Blood monocytes/100 leukocytes 10 % 0-12 Automated blood eosinophils/100 leukocytes 2 % 0-10 Automated blood basophils/100 leukocytes 0 % 0-10 Blood neutrophils automated count (number/volume) 6.9 10*3 1.8-7.8 Blood lymphocytes automated count (number/volume) 1.0 10*3 1.0-4.0 Blood monocytes automated count (number/volume) 0.8 10*3 0.0-1.0 Automated eosinophil count 0.2 10*3/uL 0.0-0.3 Automated blood basophil count (count/volume) 0.0 10*3/uL 0.0-0.1 PT panel in platelet poor plasma by coagulation assay - 08/24/17 23:34 Prothrombin time (PT) in platelet poor plasma by coagulation assay 14.7 s 12.2-14.7 INR in platelet poor plasma or blood by coagulation assay 1.1 0.8-1.4 Activated partial thromboplastin time (aPTT) in platelet poor plasma bycoagulation assay - 08/24/17 23:34 Activated partial thromboplastin time (aPTT) in platelet poor plasma bycoagulation assay 35 s 24-35 Comprehensive metabolic panel - 08/24/17 23:34 Serum or plasma sodium measurement (moles/volume) 142 mmol/L 135-145 Serum or plasma potassium measurement (moles/volume) 4.7 mmol/L 3.6-5.0 Serum or plasma chloride measurement (moles/volume) 106 mmol/L 98-107 Carbon dioxide 26 mmol/L 21-32 Serum or plasma anion gap determination (moles/volume) 10 mmol/L 5-14 Serum or plasma urea nitrogen measurement (mass/volume) 25 mg/dL 7-18 Serum or plasma creatinine measurement (mass/volume) 1.10 mg/dL 0.60-1.30 Serum or plasma urea nitrogen/creatinine mass ratio 23 NRG Serum or plasma creatinine measurement with calculation of estimated glomerular filtration rate > NRG Serum or plasma glucose measurement (mass/volume) 110 mg/dL 70-105 Serum or plasma calcium measurement (mass/volume) 8.7 mg/dL 8.5-10.1 Serum or plasma total bilirubin measurement (mass/volume) 0.5 mg/dL 0.1-1.0 Serum or plasma alkaline phosphatase measurement (enzymatic activity/volume) 56 U/L 40-136 Serum or plasma aspartate aminotransferase measurement (enzymatic activity/ volume) 22 U/L 5-34 Serum or plasma alanine aminotransferase measurement (enzymatic activity/volume ) 10 U/L 0-55 Serum or plasma protein measurement (mass/volume) 6.7 g/dL 6.4-8.2 Serum or plasma albumin measurement (mass/volume) 3.5 g/dL 3.2-4.5 Magnesium - 08/24/17 23:34 Magnesium 2.6 mg/dL 1.8-2.4 [id number] - 08/24/17 23:34 [id number] 37.0 ug/mL 50.0-100.0 Serum or plasma troponin i.cardiac measurement (mass/volume) - 08/24/17 23:34 Serum or plasma troponin i.cardiac measurement (mass/volume) < ng/ mL <0.30 [id number] - 08/24/17 23:34 [id number] 37.0 ug/mL 50.0-100.0 Encounters ACCT No. Visit Date/Time Discharge Status Pt. Type Provider Facility Loc./Unit Complaint [id number] 11/18/2013 11:22:01 11/18/2013 23:59:59 CLS Outpatient Bakari Garcia 08/201508/16/2017 08:07:52 08/16/2017 23:59:59 CLS Outpatient Sofía Petersen [id number] 08/24/2017 23:20:00 08/25/2017 02:01:00 DIS Emergency KAYLA PERKINS DO [facility] ER FALL,CUT ABOVE EYE [id number] 06/19/2017 10:13:00 06/19/2017 13:38:00 DIS Emergency FRANCESCA MORTON, DIANN Ramirez [facility] ER FALL [id number] 06/10/2017 16:31:00 06/10/2017 23:59:59 CLS Outpatient SOFÍA PETERSEN DO [facility] LABT [id number] 04/10/2017 12:20:00 04/16/2017 15:00:00 DIS Inpatient SAUL SOFÍA SUAREZ [facility] 4TH DEHYDRATION, ALTERED MENTAL STATUS,UTI, FALLS [id number] 04/08/2017 00:02:00 04/08/2017 01:20:00 DIS Emergency KAYLA PERKINS DO [facility] ER FALL [id number] 10/06/2015 11:17:00 10/06/2015 23:59:59 CLS Outpatient ENRIQUE BURRELL Indira [employer] [facility] RAD FALL,HEADACHE, DIZZINESS [id number] 11/08/2012 11:06:00 11/08/2012 23:59:59 CLS Outpatient SOFÍA PETERSEN DO [facility] RAD MEMORY LOSS,TIA [id number] 10/25/2012 12:50:00 11/01/2012 08:50:00 DIS Outpatient MITESH RAGSDALE MD [facility] WOUNDCARE NON HEALING POST OP WOUND [id number] 07/04/2012 17:09:00 07/04/2012 23:59:59 CLS Outpatient CARLOS HERRERA [employer] [facility] RAD ABD PAIN [id number] 06/24/2012 11:57:00 06/27/2012 10:50:00 DIS Inpatient MITESH RAGSDALE MD [facility] SURGICAL CERVICAL STENOSIS [id number] 06/17/2012 12:45:00 06/17/2012 23:59:59 CLS Outpatient MITESH RAGSDALE MD [facility] PREOP CERVICAL STENOSIS [id number] 06/11/2012 07:45:00 Document Registration [id number] 11/10/2011 13:19:00 Document Registration [id number] 11/08/2011 21:40:00 Document Registration [id number] 09/22/2011 13:31:00 Document Registration [id number] 08/18/2011 11:33:00 Document Registration [id number] 02/06/2011 14:30:00 Document Registration [id number] 06/21/2010 09:54:00 Document Registration [id number] 05/24/2010 09:19:00 Document Registration [id number] 04/03/2010 11:55:00 Document Registration [id number] 11/08/2009 06:57:00 Document Registration [id number] 10/18/2009 09:19:00 Document Registration
--- NOTE | 2017-11-17 19:38 | ED Fall/Injury ---
General Stated Complaint: FALL Source: family Exam Limitations: no limitations History of Present Illness Date Seen by Provider: Nov 17, 2017 Time Seen by Provider: 19:36 Initial Comments to ER per EMS from [facility] with reports of a fall after he tripped over his walker. He is on aspirin and Plavix. custodial nurse stated that he is normally alert and oriented but the patient's states that he is admitted there for Alzheimer's. Occurred: just prior to arrival Severity: moderate Injuries/Pain Location: head, face Associated Symptoms (Fall): Headache Allergies and Home Medications Allergies Coded Allergies: tramadol (Unverified Adverse Reaction, Intermediate, HALLUCINATIONS, ) Home Medications Acetaminophen 325 Mg Tablet, 650 MG PO Q6H PRN for PAIN-MILD OR FEVER Prescribed by: MONAE HUGHES on 04/13/171126 Amlodipine Besylate 10 Mg Tablet, 10 MG PO DAILY Prescribed by: MONAE HUGHES on 04/13/17 1128 Aspirin 81 Mg Tablet.dr, 81 MG PO DAILY, (Reported) Bethanechol Chloride 50 Mg Tablet, 50 MG PO QID Prescribed by: MONAE HUGHES on 04/16/17 1302 Clopidogrel Bisulfate 75 Mg Tablet, 75 MG PO DAILY, (Reported) Divalproex Sodium 250 Mg Tablet.dr, 250 MG PO HS Prescribed by: MONAE HUGHES on 04/13/171126 Losartan Potassium 50 Mg Tablet, 50 MG PO BID Prescribed by: MONAE HUGHES on 04/13/171126 Melatonin 3 Mg Tablet, 6 MG PO HS Prescribed by: MONAE HUGHES on 04/13/171126 Nitrofurantoin Monohyd/M-Cryst 100 Mg Capsule, 1 TAB PO BID, (Reported) Nitroglycerin 0.4 Mg Tab.subl, 0.4 MG SL UD PRN for CHEST PAIN, (Reported) Potassium Chloride 8 Meq Capsule.er, 8 MEQ PO BID Prescribed by: MONAE HUGHES on 04/13/17 112 Patient Home Medication List Home Medication List Reviewed: Yes Review of Systems Review of Systems Constitutional: see HPI Eyes: No Symptoms Reported Ears, Nose, Mouth, Throat: see HPI Respiratory: no symptoms reported Cardiovascular: no symptoms reported Genitourinary: no symptoms reported Musculoskeletal: no symptoms reported Skin: no symptoms reported Psychiatric/Neurological: No Symptoms Reported Past Qaugbzw-Mizsuf-Lgbhxe Hx Patient Social History 2nd Hand Smoke Exposure: No Recent Hopitalizations: No Immunizations Up To Date Tetanus Booster (TDap): Less than 5yrs PED Vaccines UTD: No Date of Pneumonia Vaccine: Nov 19, 2016 Date of Influenza Vaccine: Nov 19, 2016 Seasonal Allergies Seasonal Allergies: No Past Medical History Surgeries: Yes (BACK SURGERY) Cardiac, CABG, Orthopedic Respiratory: No Currently Using CPAP: No Currently Using BIPAP: No Cardiac: Yes (S/P CABG) Coronary Artery Disease, Hypertension Neurological: Yes (Alzheimers) Dementia, TIA Reproductive Disorders: No Sexually Transmitted Disease: No HIV/AIDS: No Genitourinary: Yes (URINARY RETENTION; 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 4.0oz. 63.924191jg; 25.8 BMI Method:Stated General Appearance: WD/WN, no apparent distress HEENT: PERRL/EOMI, normal ENT inspection (Arrives to ER in a rigid cervical collar. A hematoma to the left cheek and the left lateral eyebrow.), other ( Superficial lacerations to the left upper eyelid and lateral cheek were closed with skin glue. Total length 1.5 cm) Neck: non-tender, full range of motion Respiratory: normal breath sounds, no respiratory distress, no accessory muscle use Gastrointestinal: normal bowel sounds, non tender Extremities: normal range of motion, non-tender Neurologic/Psychiatric: normal mood/affect, oriented x 3, other (he is disoriented to place and time. However his is at the bedside and states that this is his normal.) Skin: normal color, warm/dry Progress/Results/Core Measures Results/Orders My Orders Orders - KARLEE HOOD APRN Ct Head/Face/Cervical Wo (11/17/17 19:35) Dipht,Pertuss(Acell),Tet Adult (Boostrix (11/17/17 20:00) Vital Signs/I&O 11/17/17 11/17/17 19:30 19:30 Temp 99.1 Pulse 49 49 Resp 17 17 B/P (MAP) 149/72 (97) 149/72 (97) O2 Delivery Room Air Room Air Diagnostic Imaging Diagonstic Imaging: CT Comments NAME: LEONCIO KIM [facility] REC#: [id number] PT STATUS: REG ER : 1935 PHYSICIAN: KARLEE HOOD THERMOPLASTIC TECHNICIAN ADMIT DATE: 11/17/17/ER Draft Date of Exam:11/17/17 CT HEAD/FACE/CERVICAL WO PROCEDURE: CT head, face, and cervical spine without contrast. TECHNIQUE: Multiple contiguous axial images were obtained through the head, neck, and facial bones without the use of intravenous contrast. Sagittal and coronal reformations through the cervical spine and facial bones were also performed. INDICATION: Fall. Hematoma to the left eyebrow and cheek. Comparison is made to the prior study from 08/24/2017. FINDINGS: There is advanced global volume loss present. There are no CT findings of acute intracranial hemorrhage. There is no abnormal extra-axial collection. There is no intracranial mass effect or shift. There are microvascular changes present within the delfin as well as multiple prior lacunar infarcts demonstrated throughout the basal ganglia bilaterally. These are not significantly changed from the prior exam. No new region of loss of dinh-white differentiation demonstrated. There is no hydrocephalus. There is no extra-axial collection. Basilar cisterns patent. Mastoids and middle ear appear clear. CT of the face demonstrates soft tissue swelling overlying the patient's left cheek and also along the lateral aspect of the left orbit with an apparent hematoma and soft tissue laceration. There are no findings of an orbital fracture. The intraorbital contents appear unremarkable. There is no fracture evident of the zygomatic arches. There is no acute nasal bone fracture. The maxilla appears unremarkable. The pterygoids are intact. The temporomandibular joints appear located without evidence of a mandibular fracture. CT of the cervical spine demonstrates advanced osteophyte formation anteriorly from C3-C7 which is unchanged from the prior exam. Alignment appears stable. There is normal alignment of the craniocervical junction. There is a normal relationship of lateral masses of C1 and C2. The facets are normally aligned. No abnormal facet joint or disc space widening is demonstrated. The vertebral body heights appear maintained without evidence of an acute cervical spine fracture. Lung apices clear. Soft tissues of the neck demonstrate atherosclerosis but no acute process. IMPRESSION: 1. 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 No acute intracranial abnormality demonstrated. 2. Large left facial and periorbital hematoma with associated laceration. There is no evidence of an underlying orbital or acute facial fracture. Intraorbital contents unremarkable. There is no blood or fluid level present within the paranasal sinuses 3. Advanced degenerative features within the cervical spine with prolific anterior cervical osteophyte formation. These findings are unchanged from the previous exam. Alignment appears stable. The vertebral body heights maintained. No acute cervical spine fracture evident. Dictated on workstation # [id number] Dict: 11/17/172002 Trans: 11/17/172022 [facility] [id number] Interpreted by: REGINA ROSE MD Electronically signed by: Departure Communication (Admissions) Cervical collar removed at 2034 Impression Primary Impression: Fall at assisted Additional Impression: Facial laceration Disposition: 01 HOME, SELF-CARE Condition: Stable Departure-Patient Inst. Decision time for Depature: 20:39 Referrals: MONAE HUGHES DO (PCP/Family) Primary Care Physician Patient Instructions: Preventing Falls in the Older Adult Add. Discharge Instructions: 1. Return to ER for any concerns 2. Allow the glue to follow up on its own in 3-5 days 3. Ice pack to the area. KARLEE HOOD APRN Nov 17, 2017 19:38
[2017-11-17] MEDS ORDERED: TETANUS,DIPTH,PERTUSS P/F (BOOSTRIX) 0.5 ML VIAL IM ONE (20:00)
--- NOTE | 2017-11-17 20:24 | Diagnostic Imaging Report ---
PROCEDURE: CT head, face, and cervical spine without contrast. TECHNIQUE: Multiple contiguous axial images were obtained through the head, neck, and facial bones without the use of intravenous contrast. Sagittal and coronal reformations through the cervical spine and facial bones were also performed. INDICATION: Fall. Hematoma to the left eyebrow and cheek. Comparison is made to the prior study from 08/24/2017. FINDINGS: There is advanced global volume loss present. There are no CT findings of acute intracranial hemorrhage. There is no abnormal extra-axial collection. There is no intracranial mass effect or shift. There are microvascular changes present within the delfin as well as multiple prior lacunar infarcts demonstrated throughout the basal ganglia bilaterally. These are not significantly changed from the prior exam. No new region of loss of dinh-white differentiation demonstrated. There is no hydrocephalus. There is no extra-axial collection. Basilar cisterns patent. Mastoids and middle ear appear clear. CT of the face demonstrates soft tissue swelling overlying the patient's left cheek and also along the lateral aspect of the left orbit with an apparent hematoma and soft tissue laceration. There are no findings of an orbital fracture. The intraorbital contents appear unremarkable. There is no fracture evident of the zygomatic arches. There is no acute nasal bone fracture. The maxilla appears unremarkable. The pterygoids are intact. The temporomandibular joints appear located without evidence of a mandibular fracture. CT of the cervical spine demonstrates advanced osteophyte formation anteriorly from C3-C7 which is unchanged from the prior exam. Alignment appears stable. There is normal alignment of the craniocervical junction. There is a normal relationship of lateral masses of C1 and C2. The facets are normally aligned. No abnormal facet joint or disc space widening is demonstrated. The vertebral body heights appear maintained without evidence of an acute cervical spine fracture. Lung apices clear. Soft tissues of the neck demonstrate atherosclerosis but no acute process. IMPRESSION: 1. 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 No acute intracranial abnormality demonstrated. 2. Large left facial and periorbital hematoma with associated laceration. There is no evidence of an underlying orbital or acute facial fracture. Intraorbital contents unremarkable. There is no blood or fluid level present within the paranasal sinuses 3. Advanced degenerative features within the cervical spine with prolific anterior cervical osteophyte formation. These findings are unchanged from the previous exam. Alignment appears stable. The vertebral body heights maintained. No acute cervical spine fracture evident. Dictated by: Dictated on workstation # [id number]
[2017-11-17 20:55] VITALS: BP 149/72
== END 2017-11-17 20:56 | disposition home or self-care (01) ==
LOC: EDUNIT# 19:28 → ER 19:30
DX: S01.81XA Laceration without foreign body of other part of head, initial encounter (principal); I25.10 Atherosclerotic heart disease of native coronary artery without angina pectoris; I10 Essential (primary) hypertension; F03.90 Unspecified dementia, unspecified severity, without behavioral disturbance, psychotic disturbance, mood disturbance, and anxiety; F32.9 Major depressive disorder, single episode, unspecified; Z87.19 Personal history of other diseases of the digestive system; Z23 Encounter for immunization; Z87.448 Personal history of other diseases of urinary system; Z96.0 Presence of urogenital implants; Z86.73 Personal history of transient ischemic attack (TIA), and cerebral infarction without residual deficits; Z79.82 Long term (current) use of aspirin; Z79.02 Long term (current) use of antithrombotics/antiplatelets; Z88.6 Allergy status to analgesic agent; Z95.1 Presence of aortocoronary bypass graft; W01.0XXA Fall on same level from slipping, tripping and stumbling without subsequent striking against object, initial encounter; Y92.129 Unspecified place in nursing home as the place of occurrence of the external cause
CPT/HCPCS: 70450; 70486; 72125

== ENCOUNTER 2018-02-19 06:33 | Emergency (ER) | payer MEDICARE, OTHER ==
[~2018-02-19] VITALS: Ht 171.4 cm; Wt 54.9 kg
--- OUTSIDE RECORDS SUMMARY | 2018-02-19 06:42 | XMS REPORT | Continuity of Care Document ---
Author Author [facility] Organization [facility] Address Unknown Phone Unavailable Allergies Active Description Code Type Severity Reaction Onset Reported/Identified Relationship to Patient Clinical Status Yes tramadol [id number] Drug Allergy Moderate HALLUCINATIONS 06/24/2012 Medications There [...] RAGSDALE MD Ot 414.01 CORONARY ATHEROSCLEROSIS OF [place] CORON 06/27/2012 MITESH RAGSDALE MD Ot 715.90 [...] NEC/NOS 10/05/2015 Ot 414.01 CORONARY ATHEROSCLEROSIS OF [place] CORON 10/05/2015 Ot V58.69 OTH MED,LT, CURRENT [...] LUMBAR REG, W/OUT NEURO 10/05/2015 CARLOS HERRERA LAST WAXER Ot 789.00 ABDOMINAL PAIN, UNSPECIFIED SITE 10/05/2015 ORENDER DO, SOFÍA S Ot 331.9 CEREB DEGENERATION NOS 10/05/2015 ORENDER DO, SOFÍA S Ot 433.30 MULT BILTRAL ARTERY OCCLUSION WO CEREBRA 10/05/2015 ORENDER DO, SOFÍA S Ot 780.93 MEMORY LOSS 10/05/2015 ORENDER DO, SOFÍA S Ot V81.5 SCREEN FOR NEPHROPATHY 10/07/2015 ENRIQUE BURRELL LAST WAXER Ot M54.2 CERVICALGIA 10/07/2015 ENRIQUE BURRELL LAST WAXER Ot M54.6 PAIN IN THORACIC SPINE 10/07/2015 ENRIQUE BURRELL LAST WAXER Ot R42 DIZZINESS AND GIDDINESS 10/07/2015 ENRIQUE BURRELL LAST WAXER Ot R51 HEADACHE 10/07/2015 ENRIQUE BURRELL LAST WAXER Ot S19.9XXA UNSPECIFIED INJURY OF NECK, INITIAL ENCO 10/07/2015 ENIRQUE BURRELL LAST WAXER Ot W19.XXXA UNSPECIFIED FALL, INITIAL ENCOUNTER 10/07/2015 ENRIQUE BURRELL LAST WAXER Ot Y92.[address] IN [facility] NON-INSTITUT (PRIVATE 10/07/2015 ENRIQUE BURRELL LAST WAXER Ot Y99.8 OTHER EXTERNAL CAUSE STATUS 10/28/2015 Ot 433.10 CAROTID ARTERY OCCLUSION W O CEREBRAL IN 10/28/2015 Ot 272.4 HYPERLIPIDEMIA NEC/NOS 10/28/2015 Ot 414.01 CORONARY ATHEROSCLEROSIS OF [place] CORON 10/28/2015 Ot V58.69 OTH MED,LT, CURRENT [...] LUMBAR REG, W/OUT NEURO 10/28/2015 JAVIEREUGENECARLOS R LAST WAXER Ot 789.00 ABDOMINAL PAIN, UNSPECIFIED SITE 10/28/2015 ORENDER DO, SOFÍA S Ot 331.9 CEREB DEGENERATION NOS 10/28/2015 ORENDER DO, SOFÍA S Ot 433.30 MULT BILTRAL ARTERY OCCLUSION WO CEREBRA 10/28/2015 ORENDER DO, SOFÍA S Ot 780.93 MEMORY LOSS 10/28/2015 RITANDER , SOFÍA S Ot V81.5 SCREEN FOR NEPHROPATHY 10/29/2015 ENRIQUE BURRELL LAST WAXER Ot M54.2 CERVICALGIA 10/29/2015 ENRIQUE BURRELL LAST WAXER Ot M54.6 PAIN IN THORACIC SPINE 10/29/2015 ENRIQUE BURRELL LAST WAXER Ot R42 DIZZINESS AND GIDDINESS 10/29/2015 ENRIQUE BURRELL LAST WAXER Ot R51 HEADACHE 10/29/2015 ENRIQUE BURRELL LAST WAXER Ot S19.9XXA UNSPECIFIED INJURY OF NECK, INITIAL ENCO 10/29/2015 ENRIQUE BURRELL LAST WAXER Ot W19.XXXA UNSPECIFIED FALL, INITIAL ENCOUNTER 10/29/2015 ENRIQUE BURRELL LAST WAXER Ot Y92.[address] IN [facility] NON-INSTITUT (PRIVATE 10/29/2015 ENRIQUE BURRELL LAST WAXER Ot Y99.8 OTHER EXTERNAL CAUSE STATUS 11/08/2015 ENRIQEU BURRELL LAST WAXER Ot M54.2 CERVICALGIA 11/08/2015 ENRIQUE BURRELL LAST WAXER Ot M54.6 PAIN IN THORACIC SPINE 11/08/2015 ENRIQUE BURRELL LAST WAXER Ot R42 DIZZINESS AND GIDDINESS 11/08/2015 ENRIQUE BURRELL LAST WAXER Ot R51 HEADACHE 11/08/2015 ENRIQUE BURRELL LAST WAXER Ot S19.9XXA UNSPECIFIED INJURY OF NECK, INITIAL ENCO 11/08/2015 ENRIQUE BURRELL LAST WAXER Ot W19.XXXA UNSPECIFIED FALL, INITIAL ENCOUNTER 11/08/2015 ENRIQUE BURRELL LAST WAXER Ot Y92.[address] [facility] (PRIVATE 11/08/2015 ENRIQUE BURRELL LAST WAXER Ot Y99.8 OTHER EXTERNAL CAUSE STATUS 02/09/2016 [...] LUMBAR REG, W/OUT NEURO 02/09/2016 CARLOS HERRERA LAST WAXER Ot 789.00 ABDOMINAL PAIN, UNSPECIFIED SITE 02/09/2016 RITANDER DO, SOFÍA S Ot 331.9 CEREB DEGENERATION NOS 02/09/2016 RITANDER DO, SOFAÍ S Ot 433.30 MULT BILTRAL ARTERY OCCLUSION [...] LUMBAR REG, W/OUT NEURO 11/07/2016 CARLOS HERRERA LAST WAXER Ot 789.00 ABDOMINAL PAIN, UNSPECIFIED SITE 11/07/2016 SAUL SUAREZ, SOFÍA S Ot 331.9 CEREB DEGENERATION NOS 11/07/2016 ANGIE PETERSEN DOLINE Gissel Ot 433.30 MULT BILTRAL ARTERY OCCLUSION WO CEREBRA 11/07/2016 ANGIE PETERSEN DOLINE Gissel Ot 780.93 MEMORY LOSS 11/07/2016 ANGIE PETERSEN DOLINE Gissel Ot V81.5 SCREEN FOR NEPHROPATHY 11/07/2016 ENRIQUE BURRELL LAST WAXER Ot M54.2 CERVICALGIA 11/07/2016 ENRIQUE BURRELL LAST WAXER Ot M54.6 PAIN IN THORACIC SPINE 11/07/2016 ENRIQUE BURRELL LAST WAXER Ot R42 DIZZINESS AND GIDDINESS 11/07/2016 ENRIQUE BURRELL LAST WAXER Ot R51 HEADACHE 11/07/2016 ENRIQUE BURRELL LAST WAXER Ot S19.9XXA UNSPECIFIED INJURY OF NECK, INITIAL ENCO 11/07/2016 ENRIQUE BURRELL LAST WAXER Ot W19.XXXA UNSPECIFIED FALL, INITIAL ENCOUNTER 11/07/2016 ENRIQUE BURRELL LAST WAXER Ot Y92.[address] IN [facility] (PRIVATE 11/07/2016 ENRIQUE BURRELL LAST WAXER Ot Y99.8 OTHER EXTERNAL CAUSE STATUS 11/08/2016 ENRIQUE BURRELL LAST WAXER Ot M54.2 CERVICALGIA 11/08/2016 ENRIQUE BURRELL LAST WAXER Ot M54.6 PAIN IN THORACIC SPINE 11/08/2016 ENRIQUE BURRELL APRN Ot R42 DIZZINESS AND GIDDINESS 11/08/2016 ENRIQUE BURRELL LAST WAXER Ot R51 HEADACHE 11/08/2016 ENRIQUE BURRELL LAST WAXER Ot S19.9XXA UNSPECIFIED INJURY OF NECK, INITIAL ENCO 11/08/2016 ENRIQUE BURRELL LAST WAXER Ot W19.XXXA UNSPECIFIED FALL, INITIAL ENCOUNTER 11/08/2016 ENRIQUE BURRELL LAST WAXER Ot Y92.[address] IN [facility] (PRIVATE 11/08/2016 ENRIQUE BURRELL LAST WAXER Ot Y99.8 OTHER EXTERNAL CAUSE STATUS 02/13/2017 ENRIQUE BURRELL LAST WAXER Ot M54.2 CERVICALGIA 02/13/2017 ENRIQUE BURRELL LAST WAXER Ot M54.6 PAIN IN THORACIC SPINE 02/13/2017 ENRIQUE BURRELL LAST WAXER Ot R42 DIZZINESS AND GIDDINESS 02/13/2017 ENRIQUE BURRELL LAST WAXER Ot R51 HEADACHE 02/13/2017 INDRA ENRIQUE Jacobson APRN Ot S19.9XXA UNSPECIFIED INJURY OF NECK, INITIAL ENCO 02/13/2017 ENRIQUE BURRELL APRN Ot W19.XXXA UNSPECIFIED FALL, INITIAL ENCOUNTER 02/13/2017 INDRA ENRIQUE Jacobson APRN Ot Y92.[address] IN [facility] NON-INSTITUT (PRIVATE 02/13/2017 ENRIQUE BURRELL APRN Ot Y99.8 OTHER EXTERNAL CAUSE STATUS 04/08/2017 ENRIQUE BURRELL LAST WAXER Ot M54.2 CERVICALGIA 04/08/2017 ENRIQUE BURRELL APRN Ot M54.6 PAIN IN THORACIC SPINE 04/08/2017 ENRIQUE BURRELL APRN Ot R42 DIZZINESS AND GIDDINESS 04/08/2017 ENRIQUE BURRELL APRN Ot R51 HEADACHE 04/08/2017 ENRIQUE BURRELL LAST WAXER Ot S19.9XXA UNSPECIFIED INJURY OF NECK, INITIAL ENCO 04/08/2017 ENRIQUE BURRELL APRN Ot W19.XXXA UNSPECIFIED FALL, INITIAL ENCOUNTER 04/08/2017 ENRIQUE BURRELL APRN Ot Y92.[address] IN [facility] NON-INSTITUT (PRIVATE 04/08/2017 ENRIQUE BURRELL APRN Ot Y99.8 OTHER EXTERNAL CAUSE STATUS 04/08/2017 KAYLA PERKINS DO Ot F03.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 DEMENTIA WITHOUT BEHAVIORAL 04/08/2017 KAYLA PERKINS DO Ot I10 ESSENTIAL (PRIMARY) HYPERTENSION 04/08/2017 KAYLA PERKINS DO, Ot I25.10 ATHSCL HEART DISEASE OF [place] CORONARY 04/08/2017 KAYLA PERKINS DO Ot R26.9 [...] 04/08/2017 MADDIE SUAREZ KAYLA Mariama Ot Z79.82 PUNCHBOARD STUFFER (CURRENT) USE OF ASPIRIN 04/08/2017 MADDIEIsidro SUAREZ KAYLA K Ot Z88.1 ALLERGY STATUS TO OTHER ANTIBIOTIC AGENT 04/08/2017 MADDIE KAYLA Mariama Ot Z95.1 PRESENCE OF AORTOCORONARY BYPASS GRAFT 04/10/2017 MADDIE KAYLA Mariama Ot F03.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 DEMENTIA WITHOUT BEHAVIORAL 04/10/2017 KAYLA PERKINS DO Ot I10 ESSENTIAL (PRIMARY) HYPERTENSION 04/10/2017 KAYLA PERKINS DO Ot I25.10 ATHSCL HEART DISEASE OF [place] CORONARY 04/10/2017 KAYLA PERKINS DO Ot R26.9 [...] 04/10/2017 MADDIE SUAREZ KAYLA K Ot Z79.82 [facility] (CURRENT) USE OF ASPIRIN 04/10/2017 MADDIE SUAREZ [...] IN [facility] NON-INSTITUT (PRIVATE 04/11/2017 ENRIQUE BURRELL LAST WAXER Ot Y99.8 OTHER EXTERNAL CAUSE STATUS 04/11/2017 [...] S Ot I25.10 ATHSCL HEART DISEASE OF [place] CORONARY 04/11/2017 SOFÍA PETERSEN DO Ot M54.9 [...] DO Ot I25.10 ATHSCL HEART DISEASE OF [place] CORONARY 04/16/2017 SOFÍA PETERSEN DO Ot M54.9 [...] MAJOR DEPRESSIVE DISORDER, SINGLE EPISOD 04/16/2017 SOFÍA PETESREN DO S Ot G30.9 ALZHEIMER'S DISEASE, UNSPECIFIED 04/16/2017 SOFÍA PETERSEN DO S Ot H91.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 HEARING LOSS, UNSPECIFIED EA 04/16/2017 SOFÍA PETERSEN DO Ot I10 ESSENTIAL (PRIMARY) HYPERTENSION 04/16/2017 SOFÍA PETERSEN DO Ot I25.10 ATHSCL HEART DISEASE OF [place] CORONARY 04/16/2017 SOFÍA PETERSEN DO Ot M54.9 [...] S Ot I25.10 ATHSCL HEART DISEASE OF [place] CORONARY 04/17/2017 SOFÍA PETERSEN DO S Ot [...] DO Ot I25.10 ATHSCL HEART DISEASE OF [place] CORONARY 04/17/2017 SOFÍA PETERSEN DO Ot M54.9 DORSALGIA, UNSPECIFIED 04/17/2017 SOFÍA PETERSEN DO Ot N28.9 DISORDER OF KIDNEY AND URETER, UNSPECIFI 04/17/2017 SOFÍA PETERSEN DO Ot N39.0 URINARY TRACT INFECTION, SITE NOT SPECIF 04/17/2017 SOFÍA PETERSEN DO Ot R26.2 DIFFICULTY IN WALKING, NOT ELSEWHERE CLA 04/17/2017 SOFAÍ PETERSEN DO Ot R29.6 REPEATED FALLS 04/17/2017 [...] SOFÍA PETERSEN DO Ot F02.81 DEMENTIA IN [facility] DISEASES CLASSD ELSWHR W 04/17/2017 SOFÍA PETERSEN DO Ot F32.9 MAJOR DEPRESSIVE DISORDER, SINGLE EPISOD 04/17/2017 SOFÍA PETERSEN DO Ot G30.9 ALZHEIMER'S DISEASE, UNSPECIFIED 04/17/2017 SOFÍA PETERSEN DO Ot H91.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 HEARING LOSS, UNSPECIFIED EA 04/17/2017 SOFÍA PETERSEN DO Ot I10 ESSENTIAL (PRIMARY) HYPERTENSION 04/17/2017 SOFÍA PETERSEN DO Ot I25.10 ATHSCL HEART DISEASE OF [place] CORONARY 04/17/2017 SOFÍA PETERSEN DO Ot M54.9 [...] DO Ot I25.10 ATHSCL HEART DISEASE OF [place] CORONARY 04/17/2017 SOFÍA PETERSEN DO Ot M54.9 [...] Z95.1 PRESENCE OF AORTOCORONARY BYPASS GRAFT 06/11/2017 ENRIQUE BURRELL LAST WAXER Ot M54.2 CERVICALGIA 06/11/2017 ENRIQUE BURRELL LAST WAXER Ot M54.6 PAIN IN THORACIC SPINE 06/11/2017 ENRIQUE BRURELL LAST WAXER Ot R42 DIZZINESS AND GIDDINESS 06/11/2017 ENRIQUE BURRELL LAST WAXER Ot R51 HEADACHE 06/11/2017 ENRIQUE BURRELL LAST WAXER Ot S19.9XXA UNSPECIFIED INJURY OF NECK, INITIAL ENCO 06/11/2017 ENRIQUE BURRELL LAST WAXER Ot W19.XXXA UNSPECIFIED FALL, INITIAL ENCOUNTER 06/11/2017 ENRIQUE BURRELL LAST WAXER Ot Y92.[address] IN [facility] NON-INSTITUT (PRIVATE 06/11/2017 ENRIQUE BURRELL LAST WAXER Ot Y99.8 OTHER EXTERNAL CAUSE STATUS 06/11/2017 RITADOM SUAREZSOFÍA Ot N39.0 URINARY TRACT INFECTION, SITE NOT SPECIF 06/19/2017 FRANCESCA MORTON, DIANN Ramirez Ot F02.80 DEMENTIA IN OTH DISEASES CLASSD ELSWHR W 06/19/2017 BRUEGGEMANN MD, DIANN T Ot G30.8 OTHER ALZHEIMER'S DISEASE 06/19/2017 DIANN MA MD, Ot I10 ESSENTIAL (PRIMARY) HYPERTENSION 06/19/2017 DIANN MA MD Ot I25.10 ATHSCL HEART DISEASE OF [place] CORONARY 06/19/2017 DIANN MA MD, Ot N28.9 DISORDER OF KIDNEY AND URETER, UNSPECIFI 06/19/2017 DIANN MA MD, Ot N39.0 URINARY TRACT INFECTION, SITE NOT SPECIF 06/19/2017 DIANN MA MD, Ot R00.1 BRADYCARDIA, UNSPECIFIED 06/19/2017 DIANN MA MD, Ot S51.012A LACERATION WITHOUT FOREIGN BODY OF LEFT 06/19/2017 DIANN MA MD, Ot S59.902A UNSPECIFIED INJURY OF LEFT ELBOW, INITIA 06/19/2017 DIANN MA MD, Ot W18.30XA FALL ON SAME LEVEL, UNSPECIFIED, INITIAL 06/19/2017 DIANN MA MD Ot Y92.[address] [facility] PLACE 06/19/2017 DIANN MA MD, Ot Z79.02 [facility] (CURRENT) USE OF ANTITHROMBOTI 06/19/2017 DIANN MA MD, Ot Z79.82 PUNCHBOARD STUFFER (CURRENT) USE OF ASPIRIN 06/19/2017 DIANN MA MD, Ot Z95.1 PRESENCE OF AORTOCORONARY BYPASS GRAFT 06/19/2017 DIANN MA MD, Ot Z96.0 PRESENCE OF UROGENITAL IMPLANTS 07/02/2017 SOFÍA PETERSEN DO Ot N39.0 URINARY TRACT INFECTION, SITE NOT SPECIF 08/25/2017 MDADIE DO KAYLA K Ot F03.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 DEMENTIA WITHOUT BEHAVIORAL 08/25/2017 MADDIE DO KAYLA K Ot F32.9 MAJOR DEPRESSIVE DISORDER, SINGLE EPISOD 08/25/2017 MADDIE DO KAYLA K Ot I10 ESSENTIAL (PRIMARY) HYPERTENSION 08/25/2017 MADDIE DO KAYLA K Ot I25.10 ATHSCL HEART DISEASE OF [place] CORONARY 08/25/2017 MADDIE DO KAYLA K Ot [...] IMMUNIZATION 08/25/2017 KAYLA PERKINS DO, Ot Z79.02 [facility] (CURRENT) USE OF ANTITHROMBOTI 08/25/2017 KAYLA PERKINS DO, Ot Z79.82 [facility] (CURRENT) USE OF ASPIRIN 08/25/2017 KAYLA PERKINS DO, Ot Z86.73 PRSNL HX OF TIA (TIA), AND CEREB INFRC W 08/25/2017 KAYLA PERKINS DO, Ot Z87.19 PERSONAL HISTORY OF OTHER DISEASES OF TH 08/25/2017 KAYLA PERKINS DO, Ot Z87.448 PERSONAL HISTORY OF OTHER DISEASES OF UR 08/25/2017 KAYLA PERKINS DO, Ot Z88.6 ALLERGY STATUS TO ANALGESIC [...] DO Ot I25.10 ATHSCL HEART DISEASE OF [place] CORONARY 08/27/2017 KAYLA PERKINS DO, Ot N39.0 URINARY TRACT INFECTION, SITE NOT SPECIF 08/27/2017 KAYLA PERKINS DO Ot S01.112A LACERATION W/O FB OF LEFT EYELID AND PER 08/27/2017 KAYLA PERKINS DO Ot S09.90XA UNSPECIFIED INJURY OF HEAD, INITIAL ENCO 08/27/2017 MADDIE SUAREZ KAYLA Mariama Ot S41.112A LACERATION W/O FOREIGN BODY OF LEFT UPPE 08/27/2017 MADDIE SUAREZ KAYLA K Ot W26.8XXA CONTACT WITH OTHER SHARP OBJECT(S), NEC, 08/27/2017 MADDIE SUAREZ KAYLA K Ot Z23 ENCOUNTER FOR IMMUNIZATION 08/27/2017 MADDIE SUAREZKAYLA Ot Z79.02 [facility] (CURRENT) USE OF ANTITHROMBOTI 08/27/2017 MADDIE SUAREZKAYLA Ot Z79.82 [facility] (CURRENT) USE OF ASPIRIN 08/27/2017 MADDIE SUAREZKAYLA Ot Z86.73 PRSNL HX OF TIA (TIA), AND CEREB INFRC W 08/27/2017 MADDIE SUAREZKAYLA Ot Z87.19 PERSONAL HISTORY OF OTHER DISEASES OF TH 08/27/2017 MADDIE SUAREZKAYLA Ot Z87.448 PERSONAL HISTORY OF OTHER DISEASES OF UR 08/27/2017 MADDIE SUAREZKAYLA Ot Z88.6 ALLERGY STATUS TO ANALGESIC AGENT STATUS 08/27/2017 MADDIE SUAREZ KAYLA Mariama Ot Z91.81 HISTORY OF FALLING 08/27/2017 MADDIE SUAREZKAYLA Ot Z95.1 PRESENCE OF AORTOCORONARY BYPASS GRAFT [...] ENCOUNTER 09/13/2017 ENRIQUE BURRELL APRN Ot Y92.[address] IN [facility] NON-[facility] (PRIVATE 09/13/2017 ENRIQUE BURRELL APRN Ot Y99.8 OTHER EXTERNAL CAUSE STATUS 09/13/2017 SOFÍA PETERSEN DO Ot N39.0 URINARY TRACT INFECTION, SITE NOT SPECIF 11/17/2017 KARLEE HOOD APRN Ot F03.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 DEMENTIA WITHOUT BEHAVIORAL 11/17/2017 KARLEE HOOD APRN Ot F32.9 MAJOR DEPRESSIVE DISORDER, SINGLE EPISOD 11/17/2017 KARLEE HOOD APRN Ot I10 ESSENTIAL (PRIMARY) HYPERTENSION 11/17/2017 KARLEE HOOD APRN Ot I25.10 ATHSCL HEART DISEASE OF [place] CORONARY 11/17/2017 KARLEE HOOD APRN Ot R51 HEADACHE 11/17/2017 KARLEE HOOD APRN Ot S01.81XA LACERATION W/O FOREIGN BODY OF OTH PART 11/17/2017 KARLEE HOOD APRN Ot W01.0XXA FALL SAME LEV FROM SLIP/TRIP W/O STRIKE 11/17/2017 KARLEE HOOD APRN Ot Y92.[address] [facility]IT[address]ARY PLACE 11/17/2017 KARLEE HOOD APRN Ot Z23 ENCOUNTER FOR IMMUNIZATION 11/17/2017 KARLEE HOOD APRN Ot Z79.02 [facility] (CURRENT) USE OF ANTITHROMBOTI 11/17/2017 KARLEE HOOD APRN Ot Z79.82 PUNCHBOARD STUFFER (CURRENT) USE OF ASPIRIN 11/17/2017 KARLEE HOOD APRN Ot Z86.73 PRSNL HX OF TIA (TIA), AND CEREB INFRC W 11/17/2017 KARLEE HOOD APRN Ot Z87.19 PERSONAL HISTORY OF OTHER DISEASES OF TH 11/17/2017 KARLEE HOOD APRN Ot Z87.448 PERSONAL HISTORY OF OTHER DISEASES OF UR 11/17/2017 KARLEE HOOD APRN, Ot Z88.6 ALLERGY STATUS TO ANALGESIC AGENT STATUS 11/17/2017 KARLEE HOOD APRN Ot Z95.1 PRESENCE OF AORTOCORONARY BYPASS GRAFT 11/17/2017 KARLEE HOOD APRN Ot Z96.0 PRESENCE OF UROGENITAL IMPLANTS 11/19/2017 KARLEE HOOD APRN Ot F03.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 DEMENTIA WITHOUT BEHAVIORAL 11/19/2017 KARLEE HOOD APRN Ot F32.9 MAJOR DEPRESSIVE DISORDER, SINGLE EPISOD 11/19/2017 KARLEE HOOD APRN Ot I10 ESSENTIAL (PRIMARY) HYPERTENSION 11/19/2017 KARLEE HOOD APRN Ot I25.10 ATHSCL HEART DISEASE OF [place] CORONARY 11/19/2017 KARLEE HOOD APRN Ot R51 HEADACHE 11/19/2017 KARLEE HOOD APRN Ot S01.81XA LACERATION W/O FOREIGN BODY OF OTH PART 11/19/2017 KARLEE HOOD APRN Ot W01.0XXA FALL SAME LEV FROM SLIP/TRIP W/O STRIKE 11/19/2017 KARLEE HOOD APRN Ot Y92.[address] [facility] PLACE 11/19/2017 KARLEE HOOD APRN Ot Z23 ENCOUNTER FOR IMMUNIZATION 11/19/2017 KARLEE HOOD APRN Ot Z79.02 [employer]CH[employer] STUFFER (CURRENT) USE OF ANTITHROMBOTI 11/19/2017 KARLEE HOOD APRN Ot Z79.82 PUNCHBOARD STUFFER (CURRENT) USE OF ASPIRIN 11/19/2017 KARLEE HOOD APRN Ot Z86.73 PRSNL HX OF TIA (TIA), AND CEREB INFRC W 11/19/2017 KARLEE HOOD APRN Ot Z87.19 PERSONAL HISTORY OF OTHER DISEASES OF TH 11/19/2017 KARLEE HOOD APRN Ot Z87.448 PERSONAL HISTORY OF OTHER DISEASES OF UR 11/19/2017 KARLEE HOOD APRN Ot Z88.6 ALLERGY STATUS TO ANALGESIC AGENT STATUS 11/19/2017 KARLEE HOOD APRN Ot Z95.1 PRESENCE OF AORTOCORONARY BYPASS GRAFT 11/19/2017 KARLEE HOOD APRN Ot Z96.0 PRESENCE OF UROGENITAL IMPLANTS Procedures Code Description Performed By Performed On 03.09 SPINAL CANAL EXPLOR NEC 06/24/2012 81.07 LUMBAR [...] FOR INFLUENZA A AND B ANTIGENS BY [facility] Complete blood count (CBC) with automated white [...] 108 mmol/L 98-107 Carbon dioxide 24 mmol/L -32 Serum or plasma anion gap determination (moles/volume) [...] 110 mmol/L 98-107 Carbon dioxide 22 mmol/L -32 Serum or plasma anion gap determination (moles/volume) [...] culture - 06/08/17 20:00 Bacterial urine culture [id number] NRG COLONY COUNT >100,000/ML NRG FTX;REPORTABLE SENSITIVITY [...] i.cardiac measurement (mass/volume) < ng/ mL <0.30 [id number] - 06/19/17 10:32 [id number] 14.9 ug/mL 50.0-100.0 Complete urinalysis with reflex [...] culture - 06/19/17 11:41 Bacterial urine culture [id number] NRG COLONY COUNT 10,000/ML - 100,000/ML NRG FTX;REPORTABLE SENSITIVITY REPORTED AT 1230, 5-4-18 NRG URINE CULTURE RESULTS PLUS NRG Bacterial susceptibility panel - 06/19/17 11:41 Gentamicin susceptibility test by minimum inhibitory concentration S NRG Vancomycin susceptibility test by minimum inhibitory concentration 1 NRG Levofloxacin susceptibility test by minimum inhibitory concentration >= NRG Tetracycline susceptibility test by minimum inhibitory concentration >= NRG Ampicillin susceptibility test by minimum inhibitory concentration < = NRG Ciprofloxacin susceptibility test by minimum inhibitory concentration R NRG Nitrofurantoin susceptibility test by minimum inhibitory concentration <= NRG Linezolid susceptibility test by minimum inhibitory concentration 2 NR Bacterial susceptibility panel - 06/19/17 11:41 Gentamicin susceptibility test by minimum inhibitory concentration < = NRG Trimethoprim/sulfamethoxazole susceptibility test by minimum inhibitoryconcentration S NRG Ampicillin susceptibility test by minimum inhibitory concentration 4 NRG Tobramycin susceptibility test by minimum inhibitory concentration < = NRG Cefazolin susceptibility test by minimum inhibitory concentration 16 NRG Ceftriaxone susceptibility test by minimum inhibitory concentration <= NRG Ampicillin/sulbactam susceptibility test by minimum inhibitory concentration <= NRG Piperacillin/tazobactam susceptibility test by minimum inhibitory concentration S NRG Ciprofloxacin susceptibility test by minimum inhibitory concentration >= NRG Meropenem susceptibility test by minimum inhibitory concentration < = NRG Nitrofurantoin susceptibility test by minimum inhibitory concentration 256 NRG Aztreonam susceptibility test by minimum inhibitory [...] RML SENT SENSITIVITY REPORT 08/26 09:05 NRG [facility] Sensitivity Panel - 08/24/17 00:29 Gentamicin susceptibility [...] - 08/24/17 23:34 Magnesium 2.6 mg/dL 1.8-2.4 [id number] - 08/24/17 23:34 [id number] 37.0 ug/mL 50.0-100.0 Serum or plasma troponin i.cardiac measurement (mass/volume) - 08/24/17 23:34 Serum or plasma troponin i.cardiac measurement (mass/volume) < ng/ mL <0.30 [id number] - 08/24/17 23:34 [id number] 37.0 ug/mL 50.0-100.0 Urinalysis - 01/06/18 11:00 Icotest N/A Negative Urine Volume Urine Volume Sufficient (10mL) Urine-Appearance Slightly Cloudy Clear Urine-Bacteria 4+ Urine-Bilirubin Negative Negative Urine-Blood Trace-intact Negative Urine-Color Yellow Colorless-Lt. Yellow Urine-Epithelial Cells 0-5/HPF Urine-Glucose Negative Negative Urine-Ketones Negative Negative Urine-Leukocytes 1+ Negative Urine-Nitrite Positive Negative Urine-Other Culture to follow Urine-pH 6.5 5-8.5 Urine-Protein Trace Negative Urine-RBC 2-5/HPF Urine-Specific Ninole 1.025 1.000-1.030 Urine-WBC TNTC Urobilinogen 0.2 E.U./dL 0.2-1.0 Urine Culture - 01/06/18 11:00 PRELIM CULTURE RESULTS >100,000 Gram Negative PING / ID to Follow MEDIA PLATED Setup at 15:34 on 01/06/2018 CULTURE SOURCE [id number]\ Sensi - 01/06/18 11:00 FINAL CULTURE RESULTS Escherichia coli (Isolate 1) Ampicillin/Sulbactam >16/8 Ampicillin >16 Amoxicillin/K Clavulanate <=8/4 Ceftriaxone >32 Ciprofloxacin >2 Nitrofurantoin <=32 Gentamicin <=4 Levofloxacin 4 Trimethoprim/ Sulfamethoxazole >2/38 Tetracycline <=4 Amikacin <=16 Aztreonam <=8 Ceftazidime <=1 Ceftazidime/K Clavulanate <=0.25 Cephalothin >16 Cefotaxime >32 Cefotaxime/K Clavulanate <=0.5 Cefoxitin <=8 Cefazolin >16 Cefepime <=8 Cefuroxime >16 Ertapenem <=1 Imipenem <=4 Meropenem <=4 Piperacillin/Tazobactam <=16 Piperacillin >64 Tigecycline <=2 Tobramycin <=4 Encounters ACCT No. Visit Date/Time Discharge Status Pt. Type Provider Facility Loc./Unit Complaint [id number] 11/18/2013 11:22:01 11/18/2013 23:59:59 CLS Outpatient Bakari Garcia 08/201502/03/2018 06:09:17 02/03/2018 23:59:59 CLS Outpatient Sofía Petersen [id number] 01/06/2018 15:04:00 01/06/2018 23:59:00 DIS Outpatient Callum Fong [id number] 11/17/2017 19:30:00 11/17/2017 20:56:00 DIS Emergency KARLEE HOOD [facility] ER FALL [id number] 08/24/2017 23:20:00 08/25/2017 02:01:00 DIS Emergency MADDIE KAYLA SUAREZ [facility] ER FALL,CUT ABOVE EYE [id number] 06/19/2017 10:13:00 06/19/2017 13:38:00 DIS Emergency DIANN MA MD [facility] ER FALL [id number] 06/10/2017 16:31:00 06/10/2017 23:59:59 CLS Outpatient SOFÍA PETERSEN DO [facility] LABNPT [id number] 04/10/2017 12:20:00 04/16/2017 15:00:00 DIS Inpatient SOFÍA PETERSEN DO [facility] 4TH DEHYDRATION, ALTERED MENTAL STATUS,UTI, FALLS [id number] 04/08/2017 00:02:00 04/08/2017 01:20:00 DIS Emergency MADDIE KAYLA SUAREZ [facility] ER FALL [id number] 10/06/2015 11:17:00 10/06/2015 23:59:59 CLS Outpatient ENRIQUE BURRELL [facility] RAD FALL,HEADACHE, DIZZINESS [id number] 11/08/2012 11:06:00 11/08/2012 23:59:59 CLS Outpatient SOFÍA PETERSEN DO [facility] RAD MEMORY LOSS,TIA [id number] 10/25/2012 12:50:00 11/01/2012 08:50:00 DIS Outpatient MITESH RAGSDALE MD [facility] WOUNDCARE NON HEALING POST OP WOUND [id number] 07/04/2012 17:09:00 07/04/2012 23:59:59 CLS Outpatient CARLOS HERRERA SOHAN [facility] RAD ABD PAIN [id number] 06/24/2012 11:57:00 06/27/2012 10:50:00 DIS Inpatient MITESH RAGSDALE MD [facility] SURGICAL CERVICAL STENOSIS [id number] 06/17/2012 12:45:00 06/17/2012 23:59:59 CLS Outpatient MITESH RAGSDALE MD [facility] PREOP CERVICAL STENOSIS [id number] 06/11/2012 07:45:00 Document Registration [id number] 11/10/2011 13:19:00 Document Registration [id number] 11/08/2011 21:40:00 Document Registration [id number] 09/22/2011 13:31:00 Document Registration [id number] 08/18/2011 11:33:00 Document Registration [id number] 02/06/2011 14:30:00 Document Registration [id number] 06/21/2010 09:54:00 Document Registration [id number] 05/24/2010 09:19:00 Document Registration [id number] 04/03/2010 11:55:00 Document Registration [id number] 11/08/2009 06:57:00 Document Registration [id number] 10/18/2009 09:19:00 Document Registration
[2018-02-19 06:49] LABS: BILIRUBIN,URINE NEGATIVE (NEGATIVE); CLARITY,URINE CLEAR; COLOR,URINE YELLOW; GLUCOSE, URINE (UA) NEGATIVE (NEGATIVE); KETONES,URINE NEGATIVE (NEGATIVE); LEUKOCYTE ESTERASE ,URINE 2+ (NEGATIVE); NITRITE,URINE NEGATIVE (NEGATIVE); PH,URINE 7 (5-9); PROTEIN,URINE NEGATIVE (NEGATIVE); UROBILINOGEN,URINE NORMAL (NORMAL)
--- NOTE | 2018-02-19 06:52 | ED Fall/Injury ---
General Chief Complaint: Trauma-Non Activation Stated Complaint: FALL Source: patient Exam Limitations: no limitations History of Present Illness Date Seen by Provider: Feb 19, 2018 Time Seen by Provider: 06:35 Initial Comments Here by EMS from detention with report of unwitnessed fall this morning. Patient reports hitting his head. No report of loss of consciousness. No significant injury otherwise. Apparently does have a skin tear per nursing report to one of his arms. is here at bedside. Patient is talking in acting appropriate otherwise. Does have dementia. Has history of falls when he forgets to use his walker. This is apparently what happened this morning. Occurred: this morning (approximately 1-1/2 hours ago.) Severity: mild Injuries/Pain Location: head, upper extremity Context: unknown Loss of Consciousness: no loss of consciousness Modifying Factors: Improves With Rest Associated Symptoms (Fall): No Chest Pain, No Nausea/Vomiting, No Neck Pain, No Shortness of Air Allergies and Home Medications Allergies Coded Allergies: tramadol (Unverified Adverse Reaction, Intermediate, HALLUCINATIONS, ) Home Medications Acetaminophen 325 Mg Tablet, 650 MG PO Q6H PRN for PAIN-MILD OR FEVER Prescribed by: MONAE HUGHES on 04/13/171126 Amlodipine Besylate 10 Mg Tablet, 10 MG PO DAILY Prescribed by: MONAE HUGHES on 04/13/17 112 Aspirin 81 Mg Tablet.dr, 81 MG PO DAILY, (Reported) Bethanechol Chloride 50 Mg Tablet, 50 MG PO QID Prescribed by: MONAE HUGHES on 04/16/17 1302 Clopidogrel Bisulfate 75 Mg Tablet, 75 MG PO DAILY, (Reported) Divalproex Sodium 250 Mg Tablet.dr, 250 MG PO HS Prescribed by: MONAE HUGHES on 04/13/17 112 Losartan Potassium 50 Mg Tablet, 50 MG PO BID Prescribed by: MONAE HUGHES on 04/13/17 112 Melatonin 3 Mg Tablet, 6 MG PO HS Prescribed by: MONAE HUGHES on 04/13/171126 Nitrofurantoin Monohyd/M-Cryst 100 Mg Capsule, 1 TAB PO BID, (Reported) Nitroglycerin 0.4 Mg Tab.subl, 0.4 MG SL UD PRN for CHEST PAIN, (Reported) Potassium Chloride 8 Meq Capsule.er, 8 MEQ PO BID Prescribed by: MONAE HUGHES on 04/13/17 1127 Patient Home Medication List Home Medication List Reviewed: Yes Review of Systems Review of Systems Constitutional: see HPI; No chills, No fever Respiratory: no symptoms reported Cardiovascular: no symptoms reported Gastrointestinal: no symptoms reported Musculoskeletal: see HPI; No back pain, No muscle pain, No neck pain Skin: change in color (right elbow), lesions (right elbow) Psychiatric/Neurological: See HPI Past Eovjhes-Vzrfqe-Vwuvsk Hx Past Med/Social Hx: Reviewed Nursing Past Med/Soc Hx Patient Social History Alcohol Use: Denies Use Recreational Drug Use: No Smoking Status: Unknown if Ever Smoked 2nd Hand Smoke Exposure: No Recent Hopitalizations: No Immunizations Up To Date Tetanus Booster (TDap): Less than 5yrs PED Vaccines UTD: No Date of Pneumonia Vaccine: Nov 19, 2016 Date of Influenza Vaccine: Nov 19, 2016 Seasonal Allergies Seasonal Allergies: No Past Medical History Surgeries: Yes (BACK SURGERY) Cardiac, CABG, Orthopedic Respiratory: No Currently Using CPAP: No Currently Using BIPAP: No Cardiac: Yes (CABG) Coronary Artery Disease, Hypertension Neurological: Yes (Alzheimers) Dementia, TIA Reproductive Disorders: No Sexually Transmitted Disease: No HIV/AIDS: No Genitourinary: Yes (URINARY RETENTION) Bladder Infection Gastrointestinal: Yes Chronic Constipation Musculoskeletal: Yes (GENERALIZED WEAKNESS; IMPAIRED MOBILITY; FREQUENT FALLS) Chronic Back Pain Endocrine: No HEENT: Yes Loss of Vision: Bilateral Hearing Impairment: Hard of Hearing Cancer: No Psychosocial: Yes (DEMENTIA) Depression Integumentary: No Blood Disorders: No Family Medical History Reviewed Nursing Family Hx ELECTROLYTE IMBALANCE HYPOMAGENSEMIA Physical Exam Vital Signs Vital Signs - First Documented Capillary Refill : Height, Weight, BMI Height: 5'7.00" Weight: 140lbs. 4.0oz. 63.211996qt; 25.8 BMI Method:Stated General Appearance: WD/WN, no apparent distress HEENT: PERRL/EOMI, pharynx normal Neck: non-tender, other (no obvious injury. Patient remains in c-collar) Cardiovascular: regular rate, rhythm, no murmur Respiratory: lungs clear, normal breath sounds Gastrointestinal: non tender, soft Back: normal inspection, no CVA tenderness, no vertebral tenderness Extremities: normal range of motion, non-tender, other (2 small skin tears to the right elbow) Neurologic/Psychiatric: alert, normal mood/affect Skin: warm/dry, other (2 small skin tears to the right elbow. No obvious injury to the head or neck) Atnvi Coma Score Best Eye Response: (4) Open Spontaneously Best Verbal Response: (5) Oriented Best Motor Response: (6) Obeys Commands Progress/Results/Core Measures Results/Orders Lab Results Laboratory Tests Test 02/19/18 06:41 Range/Units Urine Color YELLOW Urine Clarity CLEAR Urine pH 7 5-9 Urine Specific [place] 1.010 L 1.016-1.022 Urine Protein NEGATIVE NEGATIVE Urine Glucose (UA) NEGATIVE NEGATIVE Urine Ketones NEGATIVE NEGATIVE Urine Nitrite NEGATIVE NEGATIVE Urine Bilirubin NEGATIVE NEGATIVE Urine Urobilinogen NORMAL NORMAL MG/DL Urine Leukocyte Esterase 2+ H NEGATIVE Urine RBC (Auto) NEGATIVE NEGATIVE Urine RBC NONE /HPF Urine WBC 5-10 H /HPF Urine Squamous Epithelial Cells 0-2 /HPF Urine Crystals NONE /LPF Urine Bacteria LARGE H /HPF Urine Casts NONE /LPF Urine Mucus NEGATIVE /LPF Urine Culture Indicated YES My Orders Orders - SEBASTIEN GHOSH MD Ct Head/Cervical Spine Wo (02/19/18 06:41) Ua Culture If Indicated (02/19/18 06:41) Urine Culture (02/19/18 06:41) Nitrofurantoin Capsule,Macro (Macrobid C (02/19/18 07:15) Medications Given in ED Current Medications Medications Dose Ordered Sig/Andrea Route Start Time Stop Time Status Last Admin Dose Admin Nitrofurantoin Macrocrystals 100 mg ONCE ONCE PO 02/19/18 07:15 02/19/18 07:17 DC 02/19/18 07:22 100 MG Vital Signs/I&O 02/19/18 02/19/18 06:35 06:35 Temp 97.8 97.8 Pulse 65 65 Resp 18 18 B/P (MAP) 168/102 (124) 168/102 (124) Pulse Ox 98 98 O2 Delivery Room Air Room Air Progress Progress Note : Progress Note Seen and evaluated. CT head and neck ordered. UA ordered due to history of urinary tract infections increasing confusion resulting in falls. Skin tear to the right arm cleaned and redressed by nursing. 0757: C collar removed. Full range of motion without difficulty. CT negative. Nexus criteria otherwise negative now. Patient did receive nitrofurantoin 1 tab by mouth for urinary tract infection. Discharged home with return precautions. Patient and family verbalize understanding instructions and agreement with plan. Diagnostic Imaging Diagonstic Imaging: CT Plain Films/CT/US/NM/MRI: c-spine, head Comments [facility] [place], [place] NAME: LEONCIO KIM [facility] REC#: [id number] PT STATUS: REG ER : 1935 PHYSICIAN: SEBASTIEN GHOSH MD ADMIT DATE: 02/19/18/ER Draft Date of Exam:02/19/18 CT HEAD/CERVICAL SPINE WO PROCEDURE: CT head and CT cervical spine without contrast. TECHNIQUE: Multiple contiguous axial images were obtained through the brain and cervical spine without the use of intravenous contrast. Sagittal and coronal reformations through the cervical spine were then performed. INDICATION: Fall. COMPARISON: CT head and cervical spine without contrast 11/17/2017. FINDINGS: CT head: Advanced generalized cerebral and cerebellar parenchymal volume loss. 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 No intracranial hemorrhage, mass effect, hydrocephalus or extra-axial fluid collections. No CT evidence of acute infarction. Osseous structures are intact. The paranasal sinuses and mastoids are clear. Cervical spine: Normal alignment. Vertebral body heights preserved. No fractures. 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 No high-grade spinal canal narrowing is evident on this noncontrast exam. The visualized paravertebral soft tissues are unremarkable. IMPRESSION: No acute intracranial or cervical spine CT findings. Chronic findings as above. Dictated on workstation # [id number] Dict: 02/19/18 0727 Trans: 02/19/18 0734 [facility] [id number] Interpreted by: CHRISTIAN TURPIN MD Electronically signed by: Departure Impression Primary Impression: Urinary tract infection Qualified Codes: N30.00 - Acute cystitis without hematuria Additional Impressions: Minor head injury without loss of consciousness Qualified Codes: S09.90XA - Unspecified injury of head, initial encounter Skin tear of right elbow without complication Qualified Codes: S51.011A - Laceration without foreign body of right elbow, initial encounter Disposition: HOME, SELF-CARE Condition: Improved Departure-Patient Inst. Decision time for Depature: 08:09 Referrals: MONAE HUGHES DO (PCP/Family) Primary Care Physician Patient Instructions: Minor Head Injury (DC), Skin Abrasions (DC) Add. Discharge Instructions: All discharge instructions reviewed with patient and/or family. Voiced understanding. Continue skin tear treatment per local facility guidelines. Take medications as directed. Follow up with your Dr. in a few days for recheck. Encourage plenty of fluids. Return for worse pain, fever, vomiting, weakness, breathing problems or other concerns as needed. Scripts Nitrofurantoin Macrocrystal (Nitrofurantoin) 100 Mg Capsule 100 MG PO BID, #13 CAP 0 Refills Prov: SEBASTIEN GHOSH MD 02/19/18 SEBASTIEN GHOSH MD Feb 19, 2018 06:52
[2018-02-19 06:57] LABS: BACTERIA,URINE LARGE /HPF; SQUAMOUS EPITHELIAL CELL,UR 0-2 /HPF
[2018-02-19] MEDS ORDERED: NITROFURANTOIN 100 MG (MACROBID) CAPSULE PO ONE (07:15)
--- NOTE | 2018-02-19 07:28 | NUR ---
Tegaderm (2) applied to right elbow. Initaled, dated and timed.
--- NOTE | 2018-02-19 07:34 | Diagnostic Imaging Report ---
PROCEDURE: CT head and CT cervical spine without contrast. TECHNIQUE: Multiple contiguous axial images were obtained through the brain and cervical spine without the use of intravenous contrast. Sagittal and coronal reformations through the cervical spine were then performed. INDICATION: Fall. COMPARISON: CT head and cervical spine without contrast 11/17/2017. FINDINGS: CT head: Advanced generalized cerebral and cerebellar parenchymal volume loss. 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 No intracranial hemorrhage, mass effect, hydrocephalus or extra-axial fluid collections. No CT evidence of acute infarction. Osseous structures are intact. The paranasal sinuses and mastoids are clear. Cervical spine: Normal alignment. Vertebral body heights preserved. No fractures. 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 No high-grade spinal canal narrowing is evident on this noncontrast exam. The visualized paravertebral soft tissues are unremarkable. IMPRESSION: No acute intracranial or cervical spine CT findings. Chronic findings as above. Dictated by: Dictated on workstation # [id number]
--- NOTE | 2018-02-19 07:57 | NUR ---
c-collar removed at this time per Dr. Frias
[2018-02-19] MEDS ORDERED: NITR100C PO (08:13)
[2018-02-19 08:28] VITALS: BP 123/87
== END 2018-02-19 08:28 | disposition home or self-care (01) ==
LOC: EDUNIT# 06:33 → ER 06:36
DX: S09.90XA Unspecified injury of head, initial encounter (principal); S51.011A Laceration without foreign body of right elbow, initial encounter; N39.0 Urinary tract infection, site not specified; I25.10 Atherosclerotic heart disease of native coronary artery without angina pectoris; I10 Essential (primary) hypertension; G30.9 Alzheimer's disease, unspecified; F03.90 Unspecified dementia, unspecified severity, without behavioral disturbance, psychotic disturbance, mood disturbance, and anxiety; F32.9 Major depressive disorder, single episode, unspecified; R40.2142 Coma scale, eyes open, spontaneous, at arrival to emergency department; R40.2252 Coma scale, best verbal response, oriented, at arrival to emergency department; R40.2362 Coma scale, best motor response, obeys commands, at arrival to emergency department; Z86.73 Personal history of transient ischemic attack (TIA), and cerebral infarction without residual deficits; Z88.6 Allergy status to analgesic agent; Z87.448 Personal history of other diseases of urinary system; Z87.19 Personal history of other diseases of the digestive system; Z79.82 Long term (current) use of aspirin; Z79.02 Long term (current) use of antithrombotics/antiplatelets; Z91.81 History of falling; Z95.1 Presence of aortocoronary bypass graft; W19.XXXA Unspecified fall, initial encounter; Y92.009 Unspecified place in unspecified non-institutional (private) residence as the place of occurrence of the external cause
CPT/HCPCS: 70450; 72125; 81000; 87077; 87088; 87186